=== PATIENT | male | born 1960 | race African-American/Black ===

== ENCOUNTER 2017-03-16 00:32 | Inpatient (IN) | payer MEDICAID, OTHER ==
[~2017-03-16] VITALS: Ht 170.2 cm; Wt 100.2 kg
[~2017-03-16 00:32] MED LIST: ASPI81 PO; CARV12 PO; FURO40 PO; LISI-661 PO; OXCA300T PO; SPIR25 PO; TRAZ-144 PO
[2017-03-16] MEDS ORDERED: LURA20TA PO (00:59)
[2017-03-16] MEDS ORDERED: ALBU6.7H IH (00:59)
[2017-03-16] MEDS ORDERED: GABA-533 PO (00:59)
[2017-03-16] MEDS ORDERED: TAMS0.4C32 PO (00:59)
[2017-03-16] MEDS ORDERED: BUDE10.2 IH (00:59)
[2017-03-16] MEDS ORDERED: PHENY100 PO (00:59)
[2017-03-16] MEDS ORDERED: PANT40TA25 PO (00:59)
[2017-03-16 01:36] LABS: BASOPHILS % (AUTO) 0.1 % (0.0-2.0); EOSINOPHILS % (AUTO) 1.6 % (1.0-6.0); HEMATOCRIT 31.8 % (41-53); HEMOGLOBIN 10.2 g/dL (13.5-17.5); LYMPHOCYTES # (AUTO) 1.5 K/uL (1.0-4.8); LYMPHOCYTES % (AUTO) 13.4 % (22.0-44.0); MEAN CORPUSCULAR HEMOGLOBIN 25.7 pg (26.0-34.0); MEAN CORPUSCULAR HGB CONC 32.1 G/dL (31.0-37.0); MEAN CORPUSCULAR VOLUME 80 fL (80-100); MONOCYTES # (AUTO) 0.5 K/uL (0.1-1.0); MONOCYTES % (AUTO) 4.8 % (2.0-9.0); NEUTROPHILS # (AUTO) 9.1 K/uL (1.8-7.7); NEUTROPHILS % (AUTO) 80.1 % (40.0-70.0); PLATELET COUNT (AUTO) 373 K/uL (150-450); RED BLOOD CELL COUNT(AUTO) 3.97 MIL/uL (4.50-5.90); WHITE BLOOD COUNT (AUTO) 11.4 K/uL (4.5-11.0)
[2017-03-16 01:45] LABS: ANION GAP 6 mmol/L (8-16); CALCIUM, TOTAL 8.7 mg/dL (8.8-10.5); CARBON DIOXIDE 31 mmol/L (22-29); CHLORIDE 97 mmol/L (98-107); CREATININE 0.95 mg/dL (0.60-1.30); GLOMERULAR FILTR. RATE CALC > 60 mL/min (>60); POTASSIUM 4.8 mmol/L (3.5-5.1); SODIUM SERUM 134 mmol/L (136-145); UREA NITROGEN, BLOOD 25 mg/dL (7-18)
[2017-03-16 01:51] LABS: ALANINE AMINOTRANSFERASE 100 U/L (12-78); ALBUMIN 3.5 g/dL (3.4-5.0); ASPARTATE AMINOTRANSFERASE 48 U/L (15-37); BILIRUBIN,TOTAL 0.3 mg/dL (0.1-1.0); TOTAL PROTEIN, SERUM 7.1 g/dL (6.4-8.2)
[2017-03-16 02:02] LABS: B-TYPE NATRIURETIC PEPTIDE 851 pg/mL (0-100)
[2017-03-16 04:09] LABS: APPEARANCE,URINE CLEAR (CLEAR); GLUCOSE, URINE (UA) NEGATIVE (NEGATIVE); KETONES,URINE NEGATIVE (NEGATIVE); LEUKOCYTE ESTERASE ,URINE NEGATIVE (NEGATIVE); OCCULT BLOOD,URINE NEGATIVE (NEGATIVE); PH,URINE 7.5 (5.0-8.0); PROTEIN,URINE NEGATIVE (NEGATIVE)
[2017-03-16 04:13] LABS: ADD UA MICROSCOPIC NO
[2017-03-16] MEDS ORDERED: QUEtiapine FUMARATE 100 MG TABLET PO PRN (04:15)
[2017-03-16 05:52] VITALS: BP 135/88
[2017-03-16] MEDS ORDERED: PNEUMOCOCCAL VACCINE POLYVALENT 0.5 ML VIAL [PPSV23] IM ONE (06:15)
[2017-03-16 08:00] VITALS: BP 105/67
[2017-03-16] MEDS: LORazepam 2 MG TABLET PO PRN ×2 (10:08→16:28)
[2017-03-16] MEDS ORDERED: TRAZ-147 PO (13:09)
[2017-03-16] MEDS: ASPIRIN 81 MG EC TABLET PO SCH (14:29)
[2017-03-16] MEDS: TAMSULOSIN HCL 0.4 MG CAPSULE PO SCH (14:30)
[2017-03-16 16:11] VITALS: BP 143/92
[2017-03-16] MEDS: PHENYTOIN SODIUM 100 MG ER CAPSULE PO SCH (16:26)
[2017-03-16] MEDS: CARVEDILOL 12.5 MG TABLET PO SCH (16:26)
[2017-03-16] MEDS: OXcarbazepine 300 MG TABLET PO SCH (17:00)
[2017-03-16] MEDS: ALBUTEROL SULFATE HFA 90 MCG/PUFF 8 GM INHALER IH SCH ×2 (18:08→23:58)
[2017-03-17] MEDS: ZOLPIDEM TARTRATE 10 MG TABLET PO PRN ×2 (00:01→20:18)
[2017-03-17 00:23] VITALS: BP 110/63
[2017-03-17] MEDS: LORazepam 2 MG TABLET PO PRN ×2 (05:19→10:00)
[2017-03-17] MEDS: ALBUTEROL SULFATE HFA 90 MCG/PUFF 8 GM INHALER IH SCH ×3 (05:53→17:34)
[2017-03-17 06:47] LABS: BASOPHILS % (AUTO) 0.2 % (0.0-2.0); EOSINOPHILS % (AUTO) 3.6 % (1.0-6.0); HEMOGLOBIN 10.1 g/dL (13.5-17.5); LYMPHOCYTES # (AUTO) 1.5 K/uL (1.0-4.8); LYMPHOCYTES % (AUTO) 18.7 % (22.0-44.0); MEAN CORPUSCULAR HEMOGLOBIN 25.7 pg (26.0-34.0); MEAN CORPUSCULAR HGB CONC 31.6 G/dL (31.0-37.0); MEAN CORPUSCULAR VOLUME 81 fL (80-100); MONOCYTES # (AUTO) 0.6 K/uL (0.1-1.0); MONOCYTES % (AUTO) 8.2 % (2.0-9.0); NEUTROPHILS # (AUTO) 5.4 K/uL (1.8-7.7); NEUTROPHILS % (AUTO) 69.3 % (40.0-70.0); PLATELET COUNT (AUTO) 349 K/uL (150-450); RED BLOOD CELL COUNT(AUTO) 3.93 MIL/uL (4.50-5.90); RED CELL DISTRIBUTION WIDTH 16.4 % (11.5-14.5); WHITE BLOOD COUNT (AUTO) 7.8 K/uL (4.5-11.0)
[2017-03-17 07:14] LABS: ALANINE AMINOTRANSFERASE 95 U/L (12-78); ALBUMIN 3.1 g/dL (3.4-5.0); ANION GAP 4 mmol/L (8-16); ASPARTATE AMINOTRANSFERASE 46 U/L (15-37); BILIRUBIN,TOTAL 0.4 mg/dL (0.1-1.0); CALCIUM, TOTAL 8.6 mg/dL (8.8-10.5); CARBON DIOXIDE 31 mmol/L (22-29); CHLORIDE 100 mmol/L (98-107); CREATININE 0.72 mg/dL (0.60-1.30); GLOMERULAR FILTR. RATE CALC > 60 mL/min (>60); POTASSIUM 4.6 mmol/L (3.5-5.1); SODIUM SERUM 135 mmol/L (136-145); UREA NITROGEN, BLOOD 16 mg/dL (7-18)
[2017-03-17 08:00] VITALS: BP 119/91
[2017-03-17] MEDS: PHENYTOIN SODIUM 100 MG ER CAPSULE PO SCH ×2 (08:57→17:34)
[2017-03-17] MEDS: CARVEDILOL 12.5 MG TABLET PO SCH ×2 (08:57→17:34)
[2017-03-17] MEDS: ASPIRIN 81 MG EC TABLET PO SCH (08:57)
[2017-03-17] MEDS: TAMSULOSIN HCL 0.4 MG CAPSULE PO SCH (08:57)
[2017-03-17] MEDS: OXcarbazepine 300 MG TABLET PO SCH ×2 (09:00→17:00)
[2017-03-17] MEDS ORDERED: HALOPERIDOL LACTATE 5 MG/ML VIAL IM ONE (15:30)
[2017-03-17] MEDS ORDERED: LORazepam 2 MG/ML VIAL IM ONE (15:30)
[2017-03-17 16:57] VITALS: BP 132/89
[2017-03-17] MEDS: HydrOXYzine PAMOATE 25 MG CAPSULE PO PRN (17:34)
[2017-03-17] MEDS: TraZODone HCL 100 MG TABLET PO SCH (20:18)
[2017-03-18] MEDS: ALBUTEROL SULFATE HFA 90 MCG/PUFF 8 GM INHALER IH SCH ×4 (00:06→17:30)
[2017-03-18] MEDS: HydrOXYzine PAMOATE 25 MG CAPSULE PO PRN ×3 (00:06→17:30)
[2017-03-18 03:30] VITALS: BP 142/76
[2017-03-18 08:05] VITALS: BP 111/84
[2017-03-18] MEDS: TAMSULOSIN HCL 0.4 MG CAPSULE PO SCH (08:25)
[2017-03-18] MEDS: CARVEDILOL 12.5 MG TABLET PO SCH ×2 (08:26→17:30)
[2017-03-18] MEDS: PHENYTOIN SODIUM 100 MG ER CAPSULE PO SCH ×2 (08:26→17:30)
[2017-03-18] MEDS: ASPIRIN 81 MG EC TABLET PO SCH (08:26)
[2017-03-18] MEDS: OXcarbazepine 300 MG TABLET PO SCH ×2 (08:34→17:00)
[2017-03-18] MEDS ORDERED: IBUPROFEN 600 MG TABLET PO PRN (09:30)
[2017-03-18] MEDS ORDERED: ACETAMINOPHEN 325 MG TABLET PO PRN (09:30)
[2017-03-18 18:36] VITALS: BP 124/88
[2017-03-18] MEDS: TraZODone HCL 100 MG TABLET PO SCH (20:15)
[2017-03-18] MEDS: ZOLPIDEM TARTRATE 10 MG TABLET PO PRN (20:15)
[2017-03-19] MEDS: ALBUTEROL SULFATE HFA 90 MCG/PUFF 8 GM INHALER IH SCH ×3 (00:01→12:00)
[2017-03-19 03:00] VITALS: BP 121/78
[2017-03-19] MEDS: HydrOXYzine PAMOATE 25 MG CAPSULE PO PRN (03:09)
[2017-03-19] MEDS: OXcarbazepine 300 MG TABLET PO SCH ×2 (09:00→09:02)
[2017-03-19] MEDS: PHENYTOIN SODIUM 100 MG ER CAPSULE PO SCH (09:02)
[2017-03-19] MEDS: TAMSULOSIN HCL 0.4 MG CAPSULE PO SCH (09:02)
[2017-03-19] MEDS: ASPIRIN 81 MG EC TABLET PO SCH (09:02)
[2017-03-19] MEDS: CARVEDILOL 12.5 MG TABLET PO SCH (09:03)
[2017-03-19 09:47] VITALS: BP 142/83
== END 2017-03-19 13:40 | disposition home or self-care (01) | DRG 750 ==
LOC: EMS 00:33 → 3EI 04:29
PROVIDERS: ADMIT Psychiatry & Neurology Child & Adolescent Psychiatry; ATTEND Psychiatry & Neurology Child & Adolescent Psychiatry
DX: F20.0 Paranoid schizophrenia (principal); I11.0 Hypertensive heart disease with heart failure; I50.9 Heart failure, unspecified; R45.851 Suicidal ideations; K74.60 Unspecified cirrhosis of liver; H40.9 Unspecified glaucoma; F32.9 Major depressive disorder, single episode, unspecified; F41.9 Anxiety disorder, unspecified; I48.91 Unspecified atrial fibrillation; J44.9 Chronic obstructive pulmonary disease, unspecified; K21.9 Gastro-esophageal reflux disease without esophagitis; N40.0 Benign prostatic hyperplasia without lower urinary tract symptoms; Z59.0 Homelessness; Z91.5 Personal history of self-harm; Z88.0 Allergy status to penicillin; Z88.8 Allergy status to other drugs, medicaments and biological substances; Z79.899 Other long term (current) drug therapy; Z28.21 Immunization not carried out because of patient refusal
CPT/HCPCS: 84439; 84443; 87081; 93005; 99285; G0480; J3535

== ENCOUNTER 2018-04-09 16:04 | Emergency (ER) | payer MEDICAID, OTHER ==
[~2018-04-09] VITALS: Ht 170.2 cm; Wt 100.0 kg
[~2018-04-09 16:04] MED LIST changes: +FURO-152 PO; -FURO40 PO; +HYD50 PO; +HYDR-3114 PO; -LISI-661 PO; +LISI10TA7 PO; +LITH300C3 PO; +LURA40 PO; +MULT-1239 PO; -OXCA300T PO; +PHENY100 PO; +PRAZ1 PO; +PRAZ1CAP5 PO; +SERT50TA12 PO; -SPIR25 PO; +SPIR50 PO; +TAMS0.4C32 PO; -TRAZ-144 PO
[2018-04-09] MEDS ORDERED: TRAZ-219 PO (16:19)
[2018-04-09] MEDS ORDERED: LORA2ORA5 PO ×2 (16:19→16:26)
[2018-04-09] MEDS ORDERED: GABA-531 PO (16:19)
[2018-04-09] MEDS ORDERED: GABA-533 PO (16:26)
[2018-04-09 17:31] VITALS: BP 121/72
== END 2018-04-09 17:34 | disposition home or self-care (01) ==
LOC: EMS 16:05
DX: F15.10 Other stimulant abuse, uncomplicated (principal); F32.9 Major depressive disorder, single episode, unspecified; F20.9 Schizophrenia, unspecified; F41.9 Anxiety disorder, unspecified; I11.0 Hypertensive heart disease with heart failure; I50.9 Heart failure, unspecified; I48.91 Unspecified atrial fibrillation; J44.9 Chronic obstructive pulmonary disease, unspecified; F12.90 Cannabis use, unspecified, uncomplicated; Z88.0 Allergy status to penicillin; Z88.8 Allergy status to other drugs, medicaments and biological substances; Z79.82 Long term (current) use of aspirin; Z79.899 Other long term (current) drug therapy

== ENCOUNTER 2018-04-11 16:20 | Inpatient (IN) | payer MEDICAID, OTHER ==
[~2018-04-11] VITALS: Ht 170.2 cm; Wt 90.6 kg
[~2018-04-11 16:20] MED LIST changes: +GABA-533 PO; -HYD50 PO; -HYDR-3114 PO; +LORA2ORA5 PO; -LURA40 PO; -PHENY100 PO; -SERT50TA12 PO; +TRAZ-219 PO
[2018-04-11 17:15] LABS: EOSINOPHILS % (AUTO) 0.2 % (1.0-6.0); HEMATOCRIT 37.9 % (41-53); HEMOGLOBIN 12.4 g/dL (13.5-17.5); LYMPHOCYTES # (AUTO) 0.2 K/uL (1.0-4.8); LYMPHOCYTES % (AUTO) 3.3 % (22.0-44.0); MEAN CORPUSCULAR HEMOGLOBIN 28.2 pg (26.0-34.0); MEAN CORPUSCULAR HGB CONC 32.6 G/dL (31.0-37.0); MEAN CORPUSCULAR VOLUME 86 fL (80-100); MONOCYTES # (AUTO) 0.1 K/uL (0.1-1.0); MONOCYTES % (AUTO) 1.3 % (2.0-9.0); NEUTROPHILS # (AUTO) 5.3 K/uL (1.8-7.7); PLATELET COUNT (AUTO) 260 K/uL (150-450); RED BLOOD CELL COUNT(AUTO) 4.39 MIL/uL (4.50-5.90); RED CELL DISTRIBUTION WIDTH 15.5 % (11.5-14.5)
[2018-04-11 17:16] LABS: NEUTROPHILS % (AUTO) 95.2 % (40.0-70.0)
[2018-04-11 17:22] LABS: ANION GAP 7 mmol/L (8-16); CALCIUM, TOTAL 8.6 mg/dL (8.8-10.5); CARBON DIOXIDE 28 mmol/L (22-29); CHLORIDE 100 mmol/L (98-107); CREATININE 0.85 mg/dL (0.60-1.30); GLOMERULAR FILTR. RATE CALC > 60 mL/min (>60); GLUCOSE,RANDOM 164 mg/dL (70-110); POTASSIUM 4.6 mmol/L (3.5-5.1); SODIUM SERUM 135 mmol/L (136-145); UREA NITROGEN, BLOOD 12 mg/dL (7-18)
[2018-04-11 17:29] LABS: ALANINE AMINOTRANSFERASE 59 U/L (12-78); ALBUMIN 3.2 g/dL (3.4-5.0); ALKALINE PHOSPHATASE 106 U/L (46-116); ASPARTATE AMINOTRANSFERASE 21 U/L (15-37); BILIRUBIN,TOTAL 0.2 mg/dL (0.1-1.0); TOTAL PROTEIN, SERUM 7.2 g/dL (6.4-8.2)
[2018-04-11 17:38] LABS: LITHIUM < 0.20 mmol/L (0.60-1.20)
[2018-04-11 19:45] LABS: AMPHET/METH SCREEN,URINE POSITIVE (NEGATIVE); BARBITURATE SCREEN, URINE NEGATIVE (NEGATIVE); BENZODIAZEPINES SCREEN,URINE NEGATIVE (NEGATIVE); CANNABINOID SCREEN,URINE NEGATIVE (NEGATIVE); COCAINE SCREEN,URINE NEGATIVE (NEGATIVE); METHADONE SCREEN, URINE NEGATIVE (NEGATIVE); OPIATE SCREEN,URINE NEGATIVE (NEGATIVE)
[2018-04-11 19:46] LABS: PHENCYCLIDINE SCREEN,URINE NEGATIVE (NEGATIVE)
[2018-04-11] MEDS ORDERED: QUEtiapine FUMARATE 100 MG TABLET PO PRN (20:45)
[2018-04-11] MEDS ORDERED: LORazepam 2 MG/ML VIAL IM ONE (21:00)
[2018-04-12 00:01] VITALS: BP 135/96
[2018-04-12] MEDS ORDERED: PNEUMOCOCCAL VACCINE POLYVALENT 0.5 ML VIAL [PPSV23] IM ONE (00:15)
[2018-04-12] MEDS ORDERED: PETROLATUM,WHITE 71 GM JELLY TP PRN (06:45)
[2018-04-12] MEDS ORDERED: ONDANSETRON HCL 4 MG TABLET PO PRN (06:45)
[2018-04-12] MEDS ORDERED: CloNIDine HCL 0.1 MG TABLET PO PRN (06:45)
[2018-04-12] MEDS ORDERED: GuaiFENesin/D-METHORPHAN [SUGAR-FREE] 200-20MG/10 ML SYRUP UDCUP PO PRN (06:45)
[2018-04-12] MEDS ORDERED: ACETAMINOPHEN 325 MG TABLET PO PRN (06:45)
[2018-04-12] MEDS ORDERED: MAGNESIUM HYDROXIDE SUSPENSION 30 ML UDCUP PO PRN (06:45)
[2018-04-12] MEDS ORDERED: NICOTINE 14 MG/24 HOUR PATCH TD PRN (06:45)
[2018-04-12] MEDS ORDERED: LOPERAMIDE HCL 2 MG CAPSULE PO PRN (06:45)
[2018-04-12] MEDS ORDERED: DOCUSATE SODIUM 100 MG CAPSULE PO PRN (06:45)
[2018-04-12] MEDS ORDERED: MAG HYDROX/AL HYDROX/SIMETH ES 30 ML SUSPENSION UDCUP PO PRN (06:45)
[2018-04-12] MEDS: IBUPROFEN 400 MG TABLET PO PRN (10:45)
[2018-04-12] MEDS: ALBUTEROL SULFATE HFA 90 MCG/PUFF 8 GM INHALER IH PRN (14:27)
[2018-04-12] MEDS: LORazepam 2 MG TABLET PO PRN (16:16)
[2018-04-12] MEDS: LITHIUM CARBONATE 300 MG CAPSULE PO SCH (16:49)
[2018-04-12 17:18] VITALS: BP 126/79
[2018-04-12] MEDS: PRAZOSIN HCL 1 MG CAPSULE PO SCH (20:26)
[2018-04-13 00:38] VITALS: BP 140/96
[2018-04-13] MEDS: IBUPROFEN 400 MG TABLET PO PRN (00:38)
[2018-04-13] MEDS: ALBUTEROL SULFATE HFA 90 MCG/PUFF 8 GM INHALER IH PRN (07:47)
[2018-04-13 08:22] VITALS: BP 122/79
[2018-04-13] MEDS: LORazepam 2 MG TABLET PO PRN ×2 (08:32→16:21)
[2018-04-13] MEDS: LITHIUM CARBONATE 300 MG CAPSULE PO SCH ×2 (08:33→16:19)
[2018-04-13] MEDS: FUROSEMIDE 20 MG TABLET PO SCH (08:33)
[2018-04-13] MEDS: SERTRALINE HCL 50 MG TABLET PO SCH (08:33)
[2018-04-13 08:40] LABS: HEMOGLOBIN A1C 5.9 % (4.5-6.2)
[2018-04-13 09:39] LABS: CHOL/HDL RATIO 3.1 (4.2-7.3); THYROID STIMULATING HORMONE 0.63 uIU/mL (0.36-3.74)
[2018-04-13 19:49] VITALS: BP 112/86
[2018-04-13] MEDS: PRAZOSIN HCL 1 MG CAPSULE PO SCH (21:48)
[2018-04-14] MEDS: LORazepam 2 MG TABLET PO PRN ×3 (01:43→17:47)
[2018-04-14] MEDS: ZOLPIDEM TARTRATE 10 MG TABLET PO PRN (01:48)
[2018-04-14] MEDS: FUROSEMIDE 20 MG TABLET PO SCH (08:11)
[2018-04-14] MEDS: SERTRALINE HCL 50 MG TABLET PO SCH (08:11)
[2018-04-14] MEDS: LITHIUM CARBONATE 300 MG CAPSULE PO SCH ×2 (08:11→17:47)
[2018-04-14 09:15] VITALS: BP 130/76
[2018-04-14 10:35] VITALS: BP 128/66
[2018-04-14 19:18] VITALS: BP 132/72
[2018-04-14] MEDS: PRAZOSIN HCL 1 MG CAPSULE PO SCH (21:22)
[2018-04-15] MEDS: LORazepam 2 MG TABLET PO PRN ×2 (06:04→18:02)
[2018-04-15] MEDS: LITHIUM CARBONATE 300 MG CAPSULE PO SCH ×2 (09:09→18:01)
[2018-04-15] MEDS: SERTRALINE HCL 50 MG TABLET PO SCH (09:09)
[2018-04-15] MEDS: FUROSEMIDE 20 MG TABLET PO SCH (09:09)
[2018-04-15] MEDS ORDERED: LITH600 PO (13:03)
[2018-04-15] MEDS ORDERED: CARV6 PO (13:03)
[2018-04-15] MEDS ORDERED: FURO40 PO (13:03)
[2018-04-15] MEDS ORDERED: LORA1TAB3 PO (13:04)
[2018-04-15 20:51] VITALS: BP 132/84
[2018-04-15] MEDS: PRAZOSIN HCL 1 MG CAPSULE PO SCH (21:00)
[2018-04-16 01:10] VITALS: BP 105/64
[2018-04-16] MEDS: ZOLPIDEM TARTRATE 10 MG TABLET PO PRN (01:11)
[2018-04-16] MEDS: LORazepam 2 MG TABLET PO PRN ×3 (01:11→16:28)
[2018-04-16] MEDS: TAMSULOSIN HCL 0.4 MG CAPSULE PO SCH (09:08)
[2018-04-16] MEDS: ASPIRIN 81 MG CHEWABLE TABLET PO SCH (09:09)
[2018-04-16] MEDS: SERTRALINE HCL 50 MG TABLET PO SCH (09:09)
[2018-04-16] MEDS: LITHIUM CARBONATE 300 MG CAPSULE PO SCH ×2 (09:09→16:28)
[2018-04-16] MEDS: SPIRONOLACTONE 50 MG TABLET PO SCH (09:10)
[2018-04-16] MEDS: LISINOPRIL 10 MG TABLET PO SCH (09:10)
[2018-04-16] MEDS: FUROSEMIDE 40 MG TABLET PO SCH (09:10)
[2018-04-16] MEDS: CARVEDILOL 6.25 MG TABLET PO SCH (09:10)
[2018-04-16] MEDS: IBUPROFEN 400 MG TABLET PO PRN (09:17)
[2018-04-16] MEDS: ALBUTEROL SULFATE HFA 90 MCG/PUFF 8 GM INHALER IH PRN (09:18)
[2018-04-16 09:29] VITALS: BP 130/75
[2018-04-16 19:22] VITALS: BP 128/66
[2018-04-16] MEDS: PRAZOSIN HCL 1 MG CAPSULE PO SCH (21:30)
[2018-04-17] MEDS: LORazepam 2 MG TABLET PO PRN (05:47)
[2018-04-17 05:49] VITALS: BP 124/86
[2018-04-17] MEDS: LISINOPRIL 10 MG TABLET PO SCH (08:37)
[2018-04-17] MEDS: CARVEDILOL 6.25 MG TABLET PO SCH (08:37)
[2018-04-17] MEDS: ASPIRIN 81 MG CHEWABLE TABLET PO SCH (08:37)
[2018-04-17] MEDS: SERTRALINE HCL 50 MG TABLET PO SCH (08:37)
[2018-04-17] MEDS: LITHIUM CARBONATE 300 MG CAPSULE PO SCH ×2 (08:37→16:59)
[2018-04-17] MEDS: SPIRONOLACTONE 50 MG TABLET PO SCH (08:38)
[2018-04-17] MEDS: TAMSULOSIN HCL 0.4 MG CAPSULE PO SCH (08:38)
[2018-04-17] MEDS: FUROSEMIDE 40 MG TABLET PO SCH (08:38)
[2018-04-17 08:45] VITALS: BP 106/91
[2018-04-17] MEDS: PRAZOSIN HCL 1 MG CAPSULE PO SCH (20:34)
[2018-04-17 21:10] VITALS: BP 115/61
[2018-04-18] MEDS: ZOLPIDEM TARTRATE 10 MG TABLET PO PRN (00:04)
[2018-04-18] MEDS: LORazepam 2 MG TABLET PO PRN ×2 (00:04→09:10)
[2018-04-18 00:06] VITALS: BP 106/68
[2018-04-18 06:32] LABS: ANION GAP 3 mmol/L (8-16); CALCIUM, TOTAL 9.2 mg/dL (8.8-10.5); CARBON DIOXIDE 29 mmol/L (22-29); CHLORIDE 103 mmol/L (98-107); CREATININE 0.85 mg/dL (0.60-1.30); GLOMERULAR FILTR. RATE CALC > 60 mL/min (>60); GLUCOSE,RANDOM 91 mg/dL (70-110); POTASSIUM 4.5 mmol/L (3.5-5.1); SODIUM SERUM 135 mmol/L (136-145); UREA NITROGEN, BLOOD 13 mg/dL (7-18)
[2018-04-18] MEDS: SPIRONOLACTONE 50 MG TABLET PO SCH (08:59)
[2018-04-18] MEDS: SERTRALINE HCL 50 MG TABLET PO SCH (08:59)
[2018-04-18] MEDS: ASPIRIN 81 MG CHEWABLE TABLET PO SCH (08:59)
[2018-04-18] MEDS: LISINOPRIL 10 MG TABLET PO SCH (08:59)
[2018-04-18] MEDS: FUROSEMIDE 40 MG TABLET PO SCH (08:59)
[2018-04-18] MEDS: LITHIUM CARBONATE 300 MG CAPSULE PO SCH (08:59)
[2018-04-18] MEDS: TAMSULOSIN HCL 0.4 MG CAPSULE PO SCH (08:59)
[2018-04-18] MEDS: CARVEDILOL 6.25 MG TABLET PO SCH (09:00)
[2018-04-18 09:08] VITALS: BP 116/84
[2018-04-18] MEDS: ALBUTEROL SULFATE HFA 90 MCG/PUFF 8 GM INHALER IH PRN (09:08)
[2018-04-18] MEDS: IBUPROFEN 400 MG TABLET PO PRN (09:11)
[2018-04-18 09:38] VITALS: BP 117/80
[2018-04-18 10:08] VITALS: BP 116/84
[2018-04-18 10:11] VITALS: BP 118/82
[2018-04-18] MEDS ORDERED: SERT50TA12 PO (10:16)
== END 2018-04-18 14:00 | disposition home or self-care (01) | DRG 750 ==
LOC: EDUNIT# 16:20 → EMS 16:21 → 3EI 21:54
DX: F25.0 Schizoaffective disorder, bipolar type (principal); E87.1 Hypo-osmolality and hyponatremia; F15.20 Other stimulant dependence, uncomplicated; I48.2 Chronic atrial fibrillation; I11.0 Hypertensive heart disease with heart failure; I50.9 Heart failure, unspecified; R45.851 Suicidal ideations; G40.909 Epilepsy, unspecified, not intractable, without status epilepticus; F17.200 Nicotine dependence, unspecified, uncomplicated; F41.9 Anxiety disorder, unspecified; F12.90 Cannabis use, unspecified, uncomplicated; M54.9 Dorsalgia, unspecified; G89.29 Other chronic pain; H40.9 Unspecified glaucoma; E03.9 Hypothyroidism, unspecified; D64.9 Anemia, unspecified; J44.9 Chronic obstructive pulmonary disease, unspecified; N40.0 Benign prostatic hyperplasia without lower urinary tract symptoms; Z59.0 Homelessness; Z79.899 Other long term (current) drug therapy; Z91.5 Personal history of self-harm; Z88.0 Allergy status to penicillin; Z88.8 Allergy status to other drugs, medicaments and biological substances; Z79.82 Long term (current) use of aspirin; Z28.21 Immunization not carried out because of patient refusal; Z71.51 Drug abuse counseling and surveillance of drug abuser
CPT/HCPCS: 83036; 84443; 87081; 96372; 99406; G0480; J2060; J3535

== ENCOUNTER 2018-05-12 09:45 | Inpatient (IN) | payer MEDICAID, OTHER ==
[~2018-05-12] VITALS: Ht 170.2 cm; Wt 94.6 kg
[~2018-05-12 09:45] MED LIST changes: -CARV12 PO; +CARV6 PO; -FURO-152 PO; +FURO40 PO; -GABA-533 PO; -LITH300C3 PO; +LITH600 PO; -LORA2ORA5 PO; -MULT-1239 PO; -PRAZ1 PO; +SERT50TA12 PO; -TRAZ-219 PO
[2018-05-12 10:53] LABS: BASOPHILS % (AUTO) 0.9 % (0.0-2.0); EOSINOPHILS % (AUTO) 2.1 % (1.0-6.0); HEMATOCRIT 37.4 % (41-53); HEMOGLOBIN 12.3 g/dL (13.5-17.5); LYMPHOCYTES % (AUTO) 22.1 % (22.0-44.0); MEAN CORPUSCULAR HGB CONC 33.1 G/dL (31.0-37.0); MEAN CORPUSCULAR VOLUME 85 fL (80-100); MONOCYTES % (AUTO) 10.5 % (2.0-9.0); NEUTROPHILS # (AUTO) 5.9 K/uL (1.8-7.7); NEUTROPHILS % (AUTO) 64.4 % (40.0-70.0); PLATELET COUNT (AUTO) 297 K/uL (150-450); RED BLOOD CELL COUNT(AUTO) 4.42 MIL/uL (4.50-5.90); RED CELL DISTRIBUTION WIDTH 14.7 % (11.5-14.5)
[2018-05-12] MEDS ORDERED: IBUPROFEN 400 MG TABLET PO PRN ×2 (11:00→18:15)
[2018-05-12] MEDS ORDERED: IPRATROPIUM BROMIDE 0.5 MG/2.5 ML NEB SOLUTION NEB ONE (11:00)
[2018-05-12] MEDS ORDERED: ALBUTEROL SULFATE 2.5 MG/0.5 ML NEB SOLUTION NEB ONE (11:00)
[2018-05-12] MEDS ORDERED: ACETAMINOPHEN 325 MG TABLET PO PRN ×2 (11:00→18:15)
[2018-05-12 11:05] LABS: ANION GAP 4 mmol/L (8-16); CALCIUM, TOTAL 8.1 mg/dL (8.8-10.5); CARBON DIOXIDE 32 mmol/L (22-29); CHLORIDE 101 mmol/L (98-107); CREATININE 0.75 mg/dL (0.60-1.30); GLOMERULAR FILTR. RATE CALC > 60 mL/min (>60); GLUCOSE,RANDOM 76 mg/dL (70-110); POTASSIUM 3.9 mmol/L (3.5-5.1); SODIUM SERUM 137 mmol/L (136-145); UREA NITROGEN, BLOOD 13 mg/dL (7-18)
[2018-05-12 11:07] LABS: AMPHET/METH SCREEN,URINE POSITIVE (NEGATIVE); BARBITURATE SCREEN, URINE NEGATIVE (NEGATIVE); BENZODIAZEPINES SCREEN,URINE NEGATIVE (NEGATIVE); CANNABINOID SCREEN,URINE POSITIVE (NEGATIVE); COCAINE SCREEN,URINE POSITIVE (NEGATIVE); METHADONE SCREEN, URINE NEGATIVE (NEGATIVE); OPIATE SCREEN,URINE NEGATIVE (NEGATIVE)
[2018-05-12 11:08] LABS: PHENCYCLIDINE SCREEN,URINE NEGATIVE (NEGATIVE)
[2018-05-12 11:11] LABS: ALANINE AMINOTRANSFERASE 42 U/L (12-78); ALBUMIN 3.3 g/dL (3.4-5.0); ALKALINE PHOSPHATASE 85 U/L (46-116); ASPARTATE AMINOTRANSFERASE 42 U/L (15-37); BILIRUBIN,TOTAL 0.6 mg/dL (0.1-1.0); TOTAL PROTEIN, SERUM 6.8 g/dL (6.4-8.2)
[2018-05-12] MEDS: LORazepam 2 MG TABLET PO PRN ×2 (11:13→23:59)
[2018-05-12] MEDS ORDERED: LORazepam 2 MG TABLET PO ONE (13:30)
[2018-05-12 16:25] LABS: AMPHET/METH SCREEN,URINE POSITIVE (NEGATIVE); BARBITURATE SCREEN, URINE NEGATIVE (NEGATIVE); BENZODIAZEPINES SCREEN,URINE NEGATIVE (NEGATIVE); CANNABINOID SCREEN,URINE POSITIVE (NEGATIVE); COCAINE SCREEN,URINE NEGATIVE (NEGATIVE); METHADONE SCREEN, URINE NEGATIVE (NEGATIVE); OPIATE SCREEN,URINE NEGATIVE (NEGATIVE)
[2018-05-12 16:38] LABS: PHENCYCLIDINE SCREEN,URINE NEGATIVE (NEGATIVE)
[2018-05-12 17:35] VITALS: BP 126/71
[2018-05-12] MEDS ORDERED: MAGNESIUM HYDROXIDE SUSPENSION 30 ML UDCUP PO PRN (18:15)
[2018-05-12] MEDS ORDERED: CloNIDine HCL 0.1 MG TABLET PO PRN (18:15)
[2018-05-12] MEDS ORDERED: ONDANSETRON HCL 4 MG TABLET PO PRN (18:15)
[2018-05-12] MEDS ORDERED: DOCUSATE SODIUM 100 MG CAPSULE PO PRN (18:15)
[2018-05-12] MEDS ORDERED: PETROLATUM,WHITE 71 GM JELLY TP PRN (18:15)
[2018-05-12] MEDS: PRAZOSIN HCL 1 MG CAPSULE PO SCH (22:23)
[2018-05-12] MEDS: ALBUTEROL SULFATE HFA 90 MCG/PUFF 8 GM INHALER IH PRN (23:54)
[2018-05-12] MEDS: ZOLPIDEM TARTRATE 10 MG TABLET PO PRN (23:58)
[2018-05-13 07:08] LABS: LITHIUM < 0.20 mmol/L (0.60-1.20)
[2018-05-13 07:10] LABS: CHOL/HDL RATIO 2.7 (4.2-7.3); CHOLESTEROL 115 mg/dL (131-200); HDL CHOLESTEROL 42 mg/dL (40-60); LDL CHOL (CALC.) 67 mg/dL (0-130); TRIGLYCERIDES 29 mg/dL (15-150)
[2018-05-13 07:28] LABS: APPEARANCE,URINE CLEAR (CLEAR); BILIRUBIN,URINE NEGATIVE (NEGATIVE); GLUCOSE, URINE (UA) NEGATIVE (NEGATIVE); KETONES,URINE NEGATIVE (NEGATIVE); LEUKOCYTE ESTERASE ,URINE NEGATIVE (NEGATIVE); NITRATE,URINE NEGATIVE (NEGATIVE); OCCULT BLOOD,URINE NEGATIVE (NEGATIVE); PROTEIN,URINE NEGATIVE (NEGATIVE)
[2018-05-13] MEDS: TAMSULOSIN HCL 0.4 MG CAPSULE PO SCH (08:11)
[2018-05-13] MEDS: CARVEDILOL 6.25 MG TABLET PO SCH (08:11)
[2018-05-13] MEDS: FUROSEMIDE 40 MG TABLET PO SCH (08:11)
[2018-05-13] MEDS: SPIRONOLACTONE 50 MG TABLET PO SCH (08:11)
[2018-05-13] MEDS: ASPIRIN 81 MG CHEWABLE TABLET PO SCH (08:11)
[2018-05-13] MEDS: SERTRALINE HCL 50 MG TABLET PO SCH (08:12)
[2018-05-13] MEDS: LISINOPRIL 10 MG TABLET PO SCH (08:13)
[2018-05-13] MEDS: ALBUTEROL SULFATE HFA 90 MCG/PUFF 8 GM INHALER IH PRN (08:16)
[2018-05-13 08:19] VITALS: BP 148/96
[2018-05-13] MEDS: LORazepam 2 MG TABLET PO PRN ×2 (09:58→21:00)
[2018-05-13] MEDS: MONTELUKAST SODIUM 10 MG TABLET PO SCH (11:33)
[2018-05-13] MEDS: TraMADol HCL 50 MG TABLET PO PRN (14:49)
[2018-05-13] MEDS: GABAPENTIN 400 MG CAPSULE PO SCH ×2 (16:20→23:50)
[2018-05-13 16:30] VITALS: BP 134/70
[2018-05-13] MEDS: LITHIUM CARBONATE 600 MG CAPSULE PO SCH (17:32)
[2018-05-13] MEDS: ZOLPIDEM TARTRATE 10 MG TABLET PO PRN (21:00)
[2018-05-13] MEDS: PRAZOSIN HCL 1 MG CAPSULE PO SCH (21:23)
[2018-05-14] MEDS: LORazepam 2 MG TABLET PO PRN ×2 (02:16→08:08)
[2018-05-14] MEDS: GuaiFENesin/D-METHORPHAN [SUGAR-FREE] 200-20MG/10 ML SYRUP UDCUP PO PRN (06:16)
[2018-05-14] MEDS: LITHIUM CARBONATE 600 MG CAPSULE PO SCH ×2 (06:50→17:34)
[2018-05-14] MEDS: FUROSEMIDE 40 MG TABLET PO SCH (08:01)
[2018-05-14] MEDS: TAMSULOSIN HCL 0.4 MG CAPSULE PO SCH (08:01)
[2018-05-14] MEDS: CARVEDILOL 6.25 MG TABLET PO SCH (08:01)
[2018-05-14] MEDS: MONTELUKAST SODIUM 10 MG TABLET PO SCH (08:01)
[2018-05-14] MEDS: SPIRONOLACTONE 50 MG TABLET PO SCH (08:02)
[2018-05-14] MEDS: ASPIRIN 81 MG CHEWABLE TABLET PO SCH (08:02)
[2018-05-14] MEDS: GABAPENTIN 400 MG CAPSULE PO SCH ×2 (08:03→16:36)
[2018-05-14] MEDS: SERTRALINE HCL 50 MG TABLET PO SCH (08:04)
[2018-05-14] MEDS: LISINOPRIL 10 MG TABLET PO SCH (08:04)
[2018-05-14] MEDS: ALBUTEROL SULFATE HFA 90 MCG/PUFF 8 GM INHALER IH PRN (08:05)
[2018-05-14 08:08] VITALS: BP 124/86
[2018-05-14] MEDS: TraMADol HCL 50 MG TABLET PO PRN (12:23)
[2018-05-14 17:11] VITALS: BP 124/70
[2018-05-14] MEDS: PRAZOSIN HCL 1 MG CAPSULE PO SCH (21:02)
[2018-05-14] MEDS: ZOLPIDEM TARTRATE 10 MG TABLET PO PRN (21:03)
[2018-05-14] MEDS: MAG HYDROX/AL HYDROX/SIMETH ES 30 ML SUSPENSION UDCUP PO PRN (21:25)
[2018-05-15] MEDS: GABAPENTIN 400 MG CAPSULE PO SCH ×3 (00:08→16:12)
[2018-05-15] MEDS: GuaiFENesin/D-METHORPHAN [SUGAR-FREE] 200-20MG/10 ML SYRUP UDCUP PO PRN (05:11)
[2018-05-15] MEDS: LITHIUM CARBONATE 600 MG CAPSULE PO SCH ×2 (07:17→16:12)
[2018-05-15 08:08] VITALS: BP 124/91
[2018-05-15] MEDS: SERTRALINE HCL 50 MG TABLET PO SCH (08:13)
[2018-05-15] MEDS: ASPIRIN 81 MG CHEWABLE TABLET PO SCH (08:13)
[2018-05-15] MEDS: TAMSULOSIN HCL 0.4 MG CAPSULE PO SCH (08:13)
[2018-05-15] MEDS: CARVEDILOL 6.25 MG TABLET PO SCH (08:13)
[2018-05-15] MEDS: MONTELUKAST SODIUM 10 MG TABLET PO SCH (08:13)
[2018-05-15] MEDS: FUROSEMIDE 40 MG TABLET PO SCH (08:13)
[2018-05-15] MEDS: SPIRONOLACTONE 50 MG TABLET PO SCH (08:14)
[2018-05-15] MEDS: LISINOPRIL 10 MG TABLET PO SCH (08:16)
[2018-05-15] MEDS: LORazepam 2 MG TABLET PO PRN (08:19)
[2018-05-15] MEDS: ALBUTEROL SULFATE HFA 90 MCG/PUFF 8 GM INHALER IH PRN (08:21)
[2018-05-15] MEDS ORDERED: SERTRALINE HCL 50 MG TABLET PO ONE (09:15)
[2018-05-15] MEDS: LOPERAMIDE HCL 2 MG CAPSULE PO PRN ×2 (15:05→17:09)
[2018-05-15] MEDS: FERROUS SULFATE 325 MG EC TABLET PO SCH (16:12)
[2018-05-15] MEDS: PRAZOSIN HCL 1 MG CAPSULE PO SCH (20:11)
[2018-05-15] MEDS: TraZODone HCL 100 MG TABLET PO SCH (20:11)
[2018-05-15 23:00] VITALS: BP 101/62
[2018-05-16] MEDS: GABAPENTIN 400 MG CAPSULE PO SCH ×4 (00:25→20:59)
[2018-05-16] MEDS: ALBUTEROL SULFATE HFA 90 MCG/PUFF 8 GM INHALER IH PRN ×2 (01:48→07:53)
[2018-05-16] MEDS: GuaiFENesin/D-METHORPHAN [SUGAR-FREE] 200-20MG/10 ML SYRUP UDCUP PO PRN ×2 (01:48→07:54)
[2018-05-16] MEDS: TraMADol HCL 50 MG TABLET PO PRN (01:49)
[2018-05-16 01:56] VITALS: BP 115/68
[2018-05-16] MEDS: FERROUS SULFATE 325 MG EC TABLET PO SCH ×3 (07:05→16:41)
[2018-05-16] MEDS: LITHIUM CARBONATE 600 MG CAPSULE PO SCH ×2 (07:05→16:41)
[2018-05-16] MEDS: LORazepam 2 MG TABLET PO PRN (07:51)
[2018-05-16 08:10] VITALS: BP 123/72
[2018-05-16] MEDS: CARVEDILOL 6.25 MG TABLET PO SCH (08:14)
[2018-05-16] MEDS: TAMSULOSIN HCL 0.4 MG CAPSULE PO SCH (08:14)
[2018-05-16] MEDS: SPIRONOLACTONE 50 MG TABLET PO SCH (08:14)
[2018-05-16] MEDS: MONTELUKAST SODIUM 10 MG TABLET PO SCH (08:14)
[2018-05-16] MEDS: SERTRALINE HCL 100 MG TABLET PO SCH (08:14)
[2018-05-16] MEDS: FUROSEMIDE 40 MG TABLET PO SCH (08:14)
[2018-05-16] MEDS: ASPIRIN 81 MG CHEWABLE TABLET PO SCH (08:15)
[2018-05-16] MEDS: QUEtiapine FUMARATE 100 MG TABLET PO PRN (08:15)
[2018-05-16] MEDS: LISINOPRIL 10 MG TABLET PO SCH (08:15)
[2018-05-16] MEDS: BusPIRone HCL 5 MG TABLET PO SCH ×2 (13:18→16:41)
[2018-05-16 16:20] VITALS: BP 121/58
[2018-05-16 20:56] VITALS: BP 117/63
[2018-05-16] MEDS: TraZODone HCL 100 MG TABLET PO SCH (20:58)
[2018-05-16] MEDS: PRAZOSIN HCL 1 MG CAPSULE PO SCH (20:58)
[2018-05-17] MEDS: ALBUTEROL SULFATE HFA 90 MCG/PUFF 8 GM INHALER IH PRN (02:04)
[2018-05-17] MEDS: GuaiFENesin/D-METHORPHAN [SUGAR-FREE] 200-20MG/10 ML SYRUP UDCUP PO PRN ×3 (02:05→16:19)
[2018-05-17] MEDS: TraMADol HCL 50 MG TABLET PO PRN ×3 (02:10→19:30)
[2018-05-17 02:12] VITALS: BP 141/92
[2018-05-17] MEDS: FERROUS SULFATE 325 MG EC TABLET PO SCH ×3 (07:02→18:10)
[2018-05-17] MEDS: LITHIUM CARBONATE 600 MG CAPSULE PO SCH ×2 (07:02→18:10)
[2018-05-17] MEDS: TAMSULOSIN HCL 0.4 MG CAPSULE PO SCH (07:45)
[2018-05-17] MEDS: GABAPENTIN 400 MG CAPSULE PO SCH ×3 (07:45→23:58)
[2018-05-17] MEDS: LISINOPRIL 10 MG TABLET PO SCH (07:45)
[2018-05-17] MEDS: SERTRALINE HCL 100 MG TABLET PO SCH (07:46)
[2018-05-17] MEDS: SPIRONOLACTONE 50 MG TABLET PO SCH (07:46)
[2018-05-17] MEDS: ASPIRIN 81 MG CHEWABLE TABLET PO SCH (07:46)
[2018-05-17] MEDS: CARVEDILOL 6.25 MG TABLET PO SCH (07:46)
[2018-05-17] MEDS: FUROSEMIDE 40 MG TABLET PO SCH (07:46)
[2018-05-17] MEDS: MONTELUKAST SODIUM 10 MG TABLET PO SCH (07:46)
[2018-05-17] MEDS: BusPIRone HCL 5 MG TABLET PO SCH ×3 (07:47→16:20)
[2018-05-17] MEDS: LORazepam 2 MG TABLET PO PRN ×3 (07:49→23:13)
[2018-05-17 08:00] VITALS: BP 150/84
[2018-05-17 16:42] VITALS: BP 114/79
[2018-05-17 19:30] VITALS: BP 134/81
[2018-05-17] MEDS: LOPERAMIDE HCL 2 MG CAPSULE PO PRN (19:30)
[2018-05-17] MEDS: PRAZOSIN HCL 1 MG CAPSULE PO SCH (20:32)
[2018-05-17] MEDS: TraZODone HCL 100 MG TABLET PO SCH (20:32)
[2018-05-18] MEDS: FERROUS SULFATE 325 MG EC TABLET PO SCH ×3 (06:51→16:47)
[2018-05-18] MEDS: LITHIUM CARBONATE 600 MG CAPSULE PO SCH ×2 (06:51→16:47)
[2018-05-18 08:15] VITALS: BP 115/67
[2018-05-18] MEDS: SPIRONOLACTONE 50 MG TABLET PO SCH (08:24)
[2018-05-18] MEDS: GABAPENTIN 400 MG CAPSULE PO SCH ×2 (08:24→16:46)
[2018-05-18] MEDS: ASPIRIN 81 MG CHEWABLE TABLET PO SCH (08:25)
[2018-05-18] MEDS: CARVEDILOL 6.25 MG TABLET PO SCH (08:25)
[2018-05-18] MEDS: TAMSULOSIN HCL 0.4 MG CAPSULE PO SCH (08:25)
[2018-05-18] MEDS: BusPIRone HCL 5 MG TABLET PO SCH ×3 (08:25→16:47)
[2018-05-18] MEDS: FUROSEMIDE 40 MG TABLET PO SCH (08:26)
[2018-05-18] MEDS: MONTELUKAST SODIUM 10 MG TABLET PO SCH (08:26)
[2018-05-18] MEDS: LISINOPRIL 10 MG TABLET PO SCH (08:26)
[2018-05-18] MEDS: SERTRALINE HCL 100 MG TABLET PO SCH (08:26)
[2018-05-18] MEDS: TraMADol HCL 50 MG TABLET PO PRN ×2 (08:30→20:50)
[2018-05-18] MEDS: GuaiFENesin/D-METHORPHAN [SUGAR-FREE] 200-20MG/10 ML SYRUP UDCUP PO PRN ×2 (08:30→16:50)
[2018-05-18] MEDS: ALBUTEROL SULFATE HFA 90 MCG/PUFF 8 GM INHALER IH PRN (13:08)
[2018-05-18 17:36] VITALS: BP 137/87
[2018-05-18 20:49] VITALS: BP 140/80
[2018-05-18] MEDS: PRAZOSIN HCL 1 MG CAPSULE PO SCH (20:50)
[2018-05-18] MEDS: TraZODone HCL 100 MG TABLET PO SCH (20:50)
[2018-05-18] MEDS: LORazepam 2 MG TABLET PO PRN (22:45)
[2018-05-18] MEDS: ZOLPIDEM TARTRATE 10 MG TABLET PO PRN (22:46)
[2018-05-19] MEDS: GABAPENTIN 400 MG CAPSULE PO SCH ×4 (00:15→23:48)
[2018-05-19 06:06] VITALS: BP 113/78
[2018-05-19] MEDS: LITHIUM CARBONATE 600 MG CAPSULE PO SCH ×2 (07:38→17:17)
[2018-05-19] MEDS: TAMSULOSIN HCL 0.4 MG CAPSULE PO SCH (07:38)
[2018-05-19] MEDS: LISINOPRIL 10 MG TABLET PO SCH (07:38)
[2018-05-19] MEDS: FERROUS SULFATE 325 MG EC TABLET PO SCH ×3 (07:38→17:17)
[2018-05-19] MEDS: MONTELUKAST SODIUM 10 MG TABLET PO SCH (07:39)
[2018-05-19] MEDS: BusPIRone HCL 5 MG TABLET PO SCH ×3 (07:39→17:16)
[2018-05-19] MEDS: FUROSEMIDE 40 MG TABLET PO SCH (07:39)
[2018-05-19] MEDS: SERTRALINE HCL 100 MG TABLET PO SCH (07:39)
[2018-05-19] MEDS: CARVEDILOL 6.25 MG TABLET PO SCH (07:39)
[2018-05-19] MEDS: SPIRONOLACTONE 50 MG TABLET PO SCH (07:39)
[2018-05-19] MEDS: ASPIRIN 81 MG CHEWABLE TABLET PO SCH (07:40)
[2018-05-19] MEDS: LORazepam 2 MG TABLET PO PRN ×2 (07:41→16:07)
[2018-05-19 10:04] VITALS: BP 115/82
[2018-05-19] MEDS: GuaiFENesin/D-METHORPHAN [SUGAR-FREE] 200-20MG/10 ML SYRUP UDCUP PO PRN (16:07)
[2018-05-19 16:19] VITALS: BP 113/67
[2018-05-19] MEDS: QUEtiapine FUMARATE 100 MG TABLET PO PRN (19:51)
[2018-05-19] MEDS: TraZODone HCL 100 MG TABLET PO SCH (20:30)
[2018-05-19] MEDS: PRAZOSIN HCL 1 MG CAPSULE PO SCH (20:30)
[2018-05-19] MEDS: ZOLPIDEM TARTRATE 10 MG TABLET PO PRN (21:33)
[2018-05-20] MEDS: LORazepam 2 MG TABLET PO PRN ×2 (02:48→17:30)
[2018-05-20] MEDS: QUEtiapine FUMARATE 100 MG TABLET PO PRN ×2 (02:48→16:24)
[2018-05-20] MEDS: LITHIUM CARBONATE 600 MG CAPSULE PO SCH ×2 (06:41→16:23)
[2018-05-20] MEDS: FERROUS SULFATE 325 MG EC TABLET PO SCH ×3 (06:41→16:25)
[2018-05-20] MEDS: MONTELUKAST SODIUM 10 MG TABLET PO SCH (08:11)
[2018-05-20] MEDS: CARVEDILOL 6.25 MG TABLET PO SCH (08:11)
[2018-05-20] MEDS: LISINOPRIL 10 MG TABLET PO SCH (08:11)
[2018-05-20] MEDS: GABAPENTIN 400 MG CAPSULE PO SCH ×3 (08:11→23:58)
[2018-05-20] MEDS: FUROSEMIDE 40 MG TABLET PO SCH (08:11)
[2018-05-20] MEDS: TAMSULOSIN HCL 0.4 MG CAPSULE PO SCH (08:11)
[2018-05-20] MEDS: BusPIRone HCL 5 MG TABLET PO SCH ×3 (08:11→16:24)
[2018-05-20] MEDS: ASPIRIN 81 MG CHEWABLE TABLET PO SCH (08:12)
[2018-05-20] MEDS: SPIRONOLACTONE 50 MG TABLET PO SCH (08:12)
[2018-05-20] MEDS: SERTRALINE HCL 100 MG TABLET PO SCH (08:12)
[2018-05-20] MEDS: TraMADol HCL 50 MG TABLET PO PRN (08:19)
[2018-05-20] MEDS: GuaiFENesin/D-METHORPHAN [SUGAR-FREE] 200-20MG/10 ML SYRUP UDCUP PO PRN (08:21)
[2018-05-20 08:57] VITALS: BP 116/79
[2018-05-20] MEDS: MAG HYDROX/AL HYDROX/SIMETH ES 30 ML SUSPENSION UDCUP PO PRN (15:03)
[2018-05-20 17:24] VITALS: BP 124/67
[2018-05-20] MEDS: PRAZOSIN HCL 1 MG CAPSULE PO SCH (21:35)
[2018-05-20] MEDS: TraZODone HCL 100 MG TABLET PO SCH (21:35)
[2018-05-21 00:39] VITALS: BP 108/80
[2018-05-21] MEDS: ZOLPIDEM TARTRATE 10 MG TABLET PO PRN (03:01)
[2018-05-21] MEDS: GuaiFENesin/D-METHORPHAN [SUGAR-FREE] 200-20MG/10 ML SYRUP UDCUP PO PRN (03:03)
[2018-05-21] MEDS: FERROUS SULFATE 325 MG EC TABLET PO SCH ×2 (07:05→12:29)
[2018-05-21] MEDS: LITHIUM CARBONATE 600 MG CAPSULE PO SCH (07:06)
[2018-05-21 08:38] VITALS: BP 122/79
[2018-05-21] MEDS: ASPIRIN 81 MG CHEWABLE TABLET PO SCH (08:50)
[2018-05-21] MEDS: LISINOPRIL 10 MG TABLET PO SCH (08:50)
[2018-05-21] MEDS: QUEtiapine FUMARATE 100 MG TABLET PO PRN (08:50)
[2018-05-21] MEDS: LORazepam 2 MG TABLET PO PRN (08:50)
[2018-05-21] MEDS: GABAPENTIN 400 MG CAPSULE PO SCH (08:50)
[2018-05-21] MEDS: TAMSULOSIN HCL 0.4 MG CAPSULE PO SCH (08:50)
[2018-05-21] MEDS: SERTRALINE HCL 100 MG TABLET PO SCH (08:51)
[2018-05-21] MEDS: SPIRONOLACTONE 50 MG TABLET PO SCH (08:51)
[2018-05-21] MEDS: MONTELUKAST SODIUM 10 MG TABLET PO SCH (08:51)
[2018-05-21] MEDS: CARVEDILOL 6.25 MG TABLET PO SCH (08:51)
[2018-05-21] MEDS: FUROSEMIDE 40 MG TABLET PO SCH (08:51)
[2018-05-21] MEDS: BusPIRone HCL 5 MG TABLET PO SCH ×2 (08:51→13:26)
[2018-05-21] MEDS ORDERED: BUSP5TAB20 PO (11:12)
[2018-05-21] MEDS ORDERED: TRAZ-220 PO (11:13)
[2018-05-21] MEDS ORDERED: SERT100T12 PO (11:13)
[2018-05-21] MEDS ORDERED: LITH600 PO (11:14)
[2018-05-21] MEDS ORDERED: PRAZ1 PO (11:14)
[2018-05-21] MEDS ORDERED: GABA-533 PO (11:15)
[2018-05-21] MEDS ORDERED: FERR-89 PO (11:15)
[2018-05-21] MEDS ORDERED: ASPI81 PO (11:16)
[2018-05-21] MEDS ORDERED: FURO40 PO (11:16)
[2018-05-21] MEDS ORDERED: MONT10TA21 PO (11:16)
[2018-05-21] MEDS ORDERED: CARV6 PO (11:16)
[2018-05-21] MEDS ORDERED: TAMS0.4C32 PO (11:17)
[2018-05-21] MEDS: ALBUTEROL SULFATE HFA 90 MCG/PUFF 8 GM INHALER IH PRN (11:17)
[2018-05-21] MEDS ORDERED: SPIR50 PO (11:17)
[2018-05-21] MEDS ORDERED: LISI-661 PO (11:17)
== END 2018-05-21 14:40 | disposition home or self-care (01) | DRG 750 ==
LOC: EMS 09:45 → 3EC 16:53
PROVIDERS: ADMIT Psychiatry & Neurology Child & Adolescent Psychiatry
DX: F25.0 Schizoaffective disorder, bipolar type (principal); R45.851 Suicidal ideations; I11.0 Hypertensive heart disease with heart failure; I50.9 Heart failure, unspecified; E03.9 Hypothyroidism, unspecified; G40.909 Epilepsy, unspecified, not intractable, without status epilepticus; I48.2 Chronic atrial fibrillation; D64.9 Anemia, unspecified; F12.10 Cannabis abuse, uncomplicated; J44.9 Chronic obstructive pulmonary disease, unspecified; M54.9 Dorsalgia, unspecified; G89.29 Other chronic pain; F14.10 Cocaine abuse, uncomplicated; F15.10 Other stimulant abuse, uncomplicated; N40.0 Benign prostatic hyperplasia without lower urinary tract symptoms; F19.10 Other psychoactive substance abuse, uncomplicated; F41.9 Anxiety disorder, unspecified; F10.10 Alcohol abuse, uncomplicated; H40.9 Unspecified glaucoma; Z91.5 Personal history of self-harm; Z79.899 Other long term (current) drug therapy; Z71.41 Alcohol abuse counseling and surveillance of alcoholic; Z59.0 Homelessness; Z88.0 Allergy status to penicillin; Z88.8 Allergy status to other drugs, medicaments and biological substances
CPT/HCPCS: 87081; 94640; G0480; J3535

== ENCOUNTER 2018-05-31 14:37 | Inpatient (IN) | payer MEDICAID, OTHER ==
[~2018-05-31] VITALS: Ht 170.2 cm; Wt 94.2 kg
[~2018-05-31 14:37] MED LIST changes: +BUSP5TAB20 PO; +FERR-89 PO; +GABA-533 PO; +LISI-661 PO; -LISI10TA7 PO; +MONT10TA21 PO; +PRAZ1 PO; -PRAZ1CAP5 PO; +SERT100T12 PO; -SERT50TA12 PO; +TRAZ-220 PO
[2018-05-31 15:44] LABS: BASOPHILS % (AUTO) 0.4 % (0.0-2.0); EOSINOPHILS % (AUTO) 0 % (1.0-6.0); HEMATOCRIT 33.4 % (41-53); LYMPHOCYTES # (AUTO) 0.5 K/uL (1.0-4.8); LYMPHOCYTES % (AUTO) 6.2 % (22.0-44.0); MEAN CORPUSCULAR HGB CONC 32.8 G/dL (31.0-37.0); MEAN CORPUSCULAR VOLUME 85 fL (80-100); MONOCYTES # (AUTO) 0.5 K/uL (0.1-1.0); MONOCYTES % (AUTO) 5.9 % (2.0-9.0); PLATELET COUNT (AUTO) 323 K/uL (150-450); RED BLOOD CELL COUNT(AUTO) 3.91 MIL/uL (4.50-5.90); RED CELL DISTRIBUTION WIDTH 14.8 % (11.5-14.5)
[2018-05-31 16:05] LABS: NEUTROPHILS % (AUTO) 87.5 % (40.0-70.0)
[2018-05-31 16:07] LABS: ANION GAP 4 mmol/L (8-16); CALCIUM, TOTAL 8.8 mg/dL (8.8-10.5); CARBON DIOXIDE 30 mmol/L (22-29); CHLORIDE 105 mmol/L (98-107); CREATININE 0.74 mg/dL (0.60-1.30); GLOMERULAR FILTR. RATE CALC > 60 mL/min (>60); GLUCOSE,RANDOM 112 mg/dL (70-110); POTASSIUM 4.5 mmol/L (3.5-5.1); SODIUM SERUM 139 mmol/L (136-145); UREA NITROGEN, BLOOD 15 mg/dL (7-18)
[2018-05-31 16:15] LABS: AMPHET/METH SCREEN,URINE POSITIVE (NEGATIVE); BARBITURATE SCREEN, URINE NEGATIVE (NEGATIVE); BENZODIAZEPINES SCREEN,URINE NEGATIVE (NEGATIVE); CANNABINOID SCREEN,URINE NEGATIVE (NEGATIVE); COCAINE SCREEN,URINE NEGATIVE (NEGATIVE); METHADONE SCREEN, URINE NEGATIVE (NEGATIVE); OPIATE SCREEN,URINE NEGATIVE (NEGATIVE); PHENCYCLIDINE SCREEN,URINE NEGATIVE (NEGATIVE)
[2018-05-31 16:20] LABS: ALANINE AMINOTRANSFERASE 71 U/L (12-78); ALBUMIN 3.2 g/dL (3.4-5.0); ALKALINE PHOSPHATASE 128 U/L (46-116); ASPARTATE AMINOTRANSFERASE 47 U/L (15-37); BILIRUBIN,TOTAL 0.2 mg/dL (0.1-1.0); TOTAL PROTEIN, SERUM 6.6 g/dL (6.4-8.2)
[2018-05-31] MEDS ORDERED: QUEtiapine FUMARATE 100 MG TABLET PO ONE (18:30)
[2018-05-31] MEDS ORDERED: LORazepam 2 MG TABLET PO ONE (18:30)
[2018-05-31] MEDS ORDERED: QUEtiapine FUMARATE 100 MG TABLET PO PRN (18:45)
[2018-05-31 20:30] VITALS: BP 145/84
[2018-05-31] MEDS ORDERED: MAGNESIUM HYDROXIDE SUSPENSION 30 ML UDCUP PO PRN (21:45)
[2018-05-31] MEDS ORDERED: ONDANSETRON HCL 4 MG TABLET PO PRN (21:45)
[2018-05-31] MEDS ORDERED: ACETAMINOPHEN 325 MG TABLET PO PRN (21:45)
[2018-05-31] MEDS ORDERED: MAG HYDROX/AL HYDROX/SIMETH ES 30 ML SUSPENSION UDCUP PO PRN (21:45)
[2018-05-31] MEDS ORDERED: NICOTINE 14 MG/24 HOUR PATCH TD PRN (21:45)
[2018-05-31] MEDS ORDERED: DOCUSATE SODIUM 100 MG CAPSULE PO PRN (21:45)
[2018-05-31] MEDS ORDERED: PETROLATUM,WHITE 71 GM JELLY TP PRN (21:45)
[2018-05-31] MEDS ORDERED: LOPERAMIDE HCL 2 MG CAPSULE PO PRN (21:45)
[2018-05-31] MEDS ORDERED: GuaiFENesin/D-METHORPHAN [SUGAR-FREE] 200-20MG/10 ML SYRUP UDCUP PO PRN (21:45)
[2018-05-31] MEDS ORDERED: CloNIDine HCL 0.1 MG TABLET PO PRN (21:45)
[2018-06-01] MEDS: GABAPENTIN 400 MG CAPSULE PO SCH ×4 (00:27→23:50)
[2018-06-01] MEDS ORDERED: PNEUMOCOCCAL VACCINE POLYVALENT 0.5 ML VIAL [PPSV23] IM ONE (02:15)
[2018-06-01] MEDS: IBUPROFEN 400 MG TABLET PO PRN ×2 (05:37→13:51)
[2018-06-01 06:59] LABS: BASOPHILS % (AUTO) 0.5 % (0.0-2.0); HEMATOCRIT 31.3 % (41-53); HEMOGLOBIN 10.6 g/dL (13.5-17.5); LYMPHOCYTES # (AUTO) 2.3 K/uL (1.0-4.8); MEAN CORPUSCULAR HEMOGLOBIN 28.8 pg (26.0-34.0); MEAN CORPUSCULAR HGB CONC 33.9 G/dL (31.0-37.0); MEAN CORPUSCULAR VOLUME 85 fL (80-100); MONOCYTES # (AUTO) 1.1 K/uL (0.1-1.0); MONOCYTES % (AUTO) 10.3 % (2.0-9.0); NEUTROPHILS # (AUTO) 7.2 K/uL (1.8-7.7); NEUTROPHILS % (AUTO) 66.2 % (40.0-70.0); PLATELET COUNT (AUTO) 372 K/uL (150-450); RED BLOOD CELL COUNT(AUTO) 3.68 MIL/uL (4.50-5.90); RED CELL DISTRIBUTION WIDTH 15.1 % (11.5-14.5)
[2018-06-01] MEDS: LISINOPRIL 10 MG TABLET PO SCH (07:14)
[2018-06-01] MEDS: LORazepam 2 MG TABLET PO PRN ×2 (07:14→17:59)
[2018-06-01] MEDS: ASPIRIN 81 MG CHEWABLE TABLET PO SCH (07:14)
[2018-06-01] MEDS: TAMSULOSIN HCL 0.4 MG CAPSULE PO SCH (07:14)
[2018-06-01] MEDS: CARVEDILOL 6.25 MG TABLET PO SCH (07:14)
[2018-06-01] MEDS: FUROSEMIDE 40 MG TABLET PO SCH (07:14)
[2018-06-01] MEDS: MONTELUKAST SODIUM 10 MG TABLET PO SCH (07:14)
[2018-06-01] MEDS: FERROUS SULFATE 325 MG EC TABLET PO SCH ×3 (07:15→17:27)
[2018-06-01] MEDS: SPIRONOLACTONE 50 MG TABLET PO SCH (07:15)
[2018-06-01 07:24] LABS: ALANINE AMINOTRANSFERASE 59 U/L (12-78); ALBUMIN 2.8 g/dL (3.4-5.0); ALKALINE PHOSPHATASE 119 U/L (46-116); ANION GAP 2 mmol/L (8-16); ASPARTATE AMINOTRANSFERASE 30 U/L (15-37); BILIRUBIN,TOTAL 0.2 mg/dL (0.1-1.0); CALCIUM, TOTAL 8.4 mg/dL (8.8-10.5); CARBON DIOXIDE 32 mmol/L (22-29); CHLORIDE 106 mmol/L (98-107); CHOL/HDL RATIO 2.3 (4.2-7.3); CHOLESTEROL 86 mg/dL (131-200); CREATININE 0.78 mg/dL (0.60-1.30); GLOMERULAR FILTR. RATE CALC > 60 mL/min (>60); GLUCOSE,RANDOM 112 mg/dL (70-110); HDL CHOLESTEROL 37 mg/dL (40-60); POTASSIUM 3.8 mmol/L (3.5-5.1); SODIUM SERUM 140 mmol/L (136-145); THYROID STIMULATING HORMONE 0.41 uIU/mL (0.36-3.74); TOTAL PROTEIN, SERUM 5.6 g/dL (6.4-8.2); UREA NITROGEN, BLOOD 11 mg/dL (7-18)
[2018-06-01 07:34] LABS: HEMOGLOBIN A1C 5.9 % (4.5-6.2)
[2018-06-01 08:01] LABS: LDL CHOL (CALC.) 46 mg/dL (0-130)
[2018-06-01 08:45] LABS: TRIGLYCERIDES < 15 mg/dL (15-150)
[2018-06-01 09:15] VITALS: BP 166/96
[2018-06-01] MEDS: SERTRALINE HCL 100 MG TABLET PO SCH (13:44)
[2018-06-01] MEDS: BusPIRone HCL 5 MG TABLET PO SCH ×2 (13:44→16:02)
[2018-06-01] MEDS: ALBUTEROL SULFATE HFA 90 MCG/PUFF 8 GM INHALER IH PRN (15:39)
[2018-06-01 16:00] VITALS: BP 133/60
[2018-06-01] MEDS: LITHIUM CARBONATE 600 MG CAPSULE PO SCH (17:27)
[2018-06-01] MEDS: PRAZOSIN HCL 1 MG CAPSULE PO SCH (21:00)
[2018-06-01] MEDS: TraZODone HCL 100 MG TABLET PO SCH (21:00)
[2018-06-02 00:06] VITALS: BP 136/79
[2018-06-02] MEDS: IBUPROFEN 400 MG TABLET PO PRN (00:06)
[2018-06-02] MEDS: ZOLPIDEM TARTRATE 10 MG TABLET PO PRN (00:10)
[2018-06-02] MEDS: FERROUS SULFATE 325 MG EC TABLET PO SCH ×3 (06:48→17:00)
[2018-06-02] MEDS: LITHIUM CARBONATE 600 MG CAPSULE PO SCH ×2 (06:48→17:00)
[2018-06-02] MEDS: ALBUTEROL SULFATE HFA 90 MCG/PUFF 8 GM INHALER IH PRN ×2 (07:52→17:02)
[2018-06-02] MEDS: GABAPENTIN 400 MG CAPSULE PO SCH ×3 (07:52→23:46)
[2018-06-02] MEDS: TAMSULOSIN HCL 0.4 MG CAPSULE PO SCH (07:52)
[2018-06-02] MEDS: LISINOPRIL 10 MG TABLET PO SCH (07:52)
[2018-06-02] MEDS: ASPIRIN 81 MG CHEWABLE TABLET PO SCH (07:52)
[2018-06-02] MEDS: SERTRALINE HCL 100 MG TABLET PO SCH (07:53)
[2018-06-02] MEDS: BusPIRone HCL 5 MG TABLET PO SCH ×3 (07:53→17:00)
[2018-06-02] MEDS: SPIRONOLACTONE 50 MG TABLET PO SCH (07:53)
[2018-06-02] MEDS: CARVEDILOL 6.25 MG TABLET PO SCH (07:53)
[2018-06-02] MEDS: MONTELUKAST SODIUM 10 MG TABLET PO SCH (07:53)
[2018-06-02] MEDS: FUROSEMIDE 40 MG TABLET PO SCH (07:54)
[2018-06-02] MEDS: LORazepam 2 MG TABLET PO PRN ×2 (07:55→17:43)
[2018-06-02 08:20] VITALS: BP 141/93
[2018-06-02 16:00] VITALS: BP 145/89
[2018-06-02] MEDS: TraZODone HCL 100 MG TABLET PO SCH (20:21)
[2018-06-02] MEDS: PRAZOSIN HCL 1 MG CAPSULE PO SCH (20:21)
[2018-06-03] MEDS: FERROUS SULFATE 325 MG EC TABLET PO SCH ×3 (06:46→17:13)
[2018-06-03] MEDS: LITHIUM CARBONATE 600 MG CAPSULE PO SCH ×2 (06:46→17:13)
[2018-06-03] MEDS: ASPIRIN 81 MG CHEWABLE TABLET PO SCH (08:36)
[2018-06-03] MEDS: TAMSULOSIN HCL 0.4 MG CAPSULE PO SCH (08:36)
[2018-06-03] MEDS: BusPIRone HCL 5 MG TABLET PO SCH ×3 (08:38→17:13)
[2018-06-03] MEDS: SPIRONOLACTONE 50 MG TABLET PO SCH (08:51)
[2018-06-03] MEDS: CARVEDILOL 6.25 MG TABLET PO SCH (08:52)
[2018-06-03] MEDS: FUROSEMIDE 40 MG TABLET PO SCH (08:53)
[2018-06-03] MEDS: SERTRALINE HCL 100 MG TABLET PO SCH (08:53)
[2018-06-03] MEDS: MONTELUKAST SODIUM 10 MG TABLET PO SCH (08:53)
[2018-06-03] MEDS: LISINOPRIL 10 MG TABLET PO SCH (08:54)
[2018-06-03] MEDS: GABAPENTIN 400 MG CAPSULE PO SCH ×2 (08:57→17:13)
[2018-06-03 09:00] VITALS: BP 108/65
[2018-06-03] MEDS: LORazepam 2 MG TABLET PO PRN (12:53)
[2018-06-03] MEDS ORDERED: TraMADol HCL 50 MG TABLET PO PRN (14:00)
[2018-06-03] MEDS: TraZODone HCL 100 MG TABLET PO SCH (20:26)
[2018-06-03] MEDS: PRAZOSIN HCL 1 MG CAPSULE PO SCH (21:00)
[2018-06-03 21:07] VITALS: BP 140/68
[2018-06-04] MEDS: GABAPENTIN 400 MG CAPSULE PO SCH ×3 (00:17→17:30)
[2018-06-04] MEDS: ALBUTEROL SULFATE HFA 90 MCG/PUFF 8 GM INHALER IH PRN (05:36)
[2018-06-04] MEDS: FERROUS SULFATE 325 MG EC TABLET PO SCH ×3 (07:01→17:31)
[2018-06-04] MEDS: LITHIUM CARBONATE 600 MG CAPSULE PO SCH ×2 (07:01→17:31)
[2018-06-04] MEDS: LORazepam 2 MG TABLET PO PRN ×2 (07:34→21:00)
[2018-06-04 08:05] VITALS: BP 131/90
[2018-06-04] MEDS: LISINOPRIL 10 MG TABLET PO SCH (09:15)
[2018-06-04] MEDS: SPIRONOLACTONE 50 MG TABLET PO SCH (09:16)
[2018-06-04] MEDS: TAMSULOSIN HCL 0.4 MG CAPSULE PO SCH (09:16)
[2018-06-04] MEDS: BusPIRone HCL 5 MG TABLET PO SCH ×3 (09:16→17:30)
[2018-06-04] MEDS: ASPIRIN 81 MG CHEWABLE TABLET PO SCH (09:16)
[2018-06-04] MEDS: FUROSEMIDE 40 MG TABLET PO SCH (09:17)
[2018-06-04] MEDS: CARVEDILOL 6.25 MG TABLET PO SCH (09:17)
[2018-06-04] MEDS: MONTELUKAST SODIUM 10 MG TABLET PO SCH (09:18)
[2018-06-04] MEDS: SERTRALINE HCL 100 MG TABLET PO SCH (09:18)
[2018-06-04 16:20] VITALS: BP 120/74
[2018-06-04] MEDS: ZOLPIDEM TARTRATE 10 MG TABLET PO PRN (21:00)
[2018-06-04] MEDS: PRAZOSIN HCL 1 MG CAPSULE PO SCH (21:39)
[2018-06-04] MEDS: TraZODone HCL 100 MG TABLET PO SCH (21:39)
[2018-06-05] MEDS: GABAPENTIN 400 MG CAPSULE PO SCH ×2 (00:10→07:30)
[2018-06-05] MEDS: IBUPROFEN 400 MG TABLET PO PRN (03:13)
[2018-06-05] MEDS: LORazepam 2 MG TABLET PO PRN ×2 (03:13→07:30)
[2018-06-05] MEDS: LITHIUM CARBONATE 600 MG CAPSULE PO SCH (07:03)
[2018-06-05] MEDS: FERROUS SULFATE 325 MG EC TABLET PO SCH ×2 (07:03→12:06)
[2018-06-05] MEDS: TAMSULOSIN HCL 0.4 MG CAPSULE PO SCH (07:30)
[2018-06-05] MEDS: LISINOPRIL 10 MG TABLET PO SCH (07:30)
[2018-06-05] MEDS: SERTRALINE HCL 100 MG TABLET PO SCH (07:31)
[2018-06-05] MEDS: ASPIRIN 81 MG CHEWABLE TABLET PO SCH (07:31)
[2018-06-05] MEDS: FUROSEMIDE 40 MG TABLET PO SCH (07:31)
[2018-06-05] MEDS: SPIRONOLACTONE 50 MG TABLET PO SCH (07:31)
[2018-06-05] MEDS: CARVEDILOL 6.25 MG TABLET PO SCH (07:31)
[2018-06-05] MEDS: MONTELUKAST SODIUM 10 MG TABLET PO SCH (07:31)
[2018-06-05] MEDS: BusPIRone HCL 5 MG TABLET PO SCH ×2 (07:31→12:06)
[2018-06-05] MEDS: ALBUTEROL SULFATE HFA 90 MCG/PUFF 8 GM INHALER IH PRN (07:32)
[2018-06-05 08:05] VITALS: BP 134/74
[2018-06-05] MEDS ORDERED: SERT100T12 PO (09:25)
[2018-06-05] MEDS ORDERED: BUSP5TAB20 PO (09:25)
[2018-06-05] MEDS ORDERED: TRAZ-220 PO (09:25)
[2018-06-05] MEDS ORDERED: PRAZ1 PO (09:25)
[2018-06-05] MEDS ORDERED: LITH600 PO (09:25)
== END 2018-06-05 14:30 | disposition home or self-care (01) | DRG 750 ==
LOC: EMS 14:38 → 3EC 19:30
DX: F25.0 Schizoaffective disorder, bipolar type (principal); F15.20 Other stimulant dependence, uncomplicated; I11.0 Hypertensive heart disease with heart failure; I50.9 Heart failure, unspecified; R45.851 Suicidal ideations; B15.9 Hepatitis A without hepatic coma; G40.909 Epilepsy, unspecified, not intractable, without status epilepticus; I48.2 Chronic atrial fibrillation; F10.10 Alcohol abuse, uncomplicated; F12.90 Cannabis use, unspecified, uncomplicated; H40.9 Unspecified glaucoma; J44.9 Chronic obstructive pulmonary disease, unspecified; N40.0 Benign prostatic hyperplasia without lower urinary tract symptoms; B19.20 Unspecified viral hepatitis C without hepatic coma; F32.9 Major depressive disorder, single episode, unspecified; F41.9 Anxiety disorder, unspecified; G89.29 Other chronic pain; M54.9 Dorsalgia, unspecified; Z88.0 Allergy status to penicillin; Z59.0 Homelessness; Z79.899 Other long term (current) drug therapy; Z71.41 Alcohol abuse counseling and surveillance of alcoholic; Z81.8 Family history of other mental and behavioral disorders; Z91.5 Personal history of self-harm; Z88.8 Allergy status to other drugs, medicaments and biological substances
CPT/HCPCS: 83036; 84443; 87081; 93005; G0480; J3535

== ENCOUNTER 2018-09-09 20:28 | Inpatient (IN) | payer MEDICAID, OTHER ==
[~2018-09-09] VITALS: Ht 170.2 cm; Wt 96.5 kg
[2018-09-09] MEDS ORDERED: LORA2TAB2 PO (21:34)
[2018-09-09 23:16] LABS: BASOPHILS % (AUTO) 0.6 % (0.0-2.0); EOSINOPHILS % (AUTO) 5.7 % (1.0-6.0); HEMATOCRIT 32.3 % (41-53); HEMOGLOBIN 10.7 g/dL (13.5-17.5); LYMPHOCYTES % (AUTO) 10.7 % (22.0-44.0); MEAN CORPUSCULAR HEMOGLOBIN 28.4 pg (26.0-34.0); MEAN CORPUSCULAR HGB CONC 33.1 G/dL (31.0-37.0); MEAN CORPUSCULAR VOLUME 86 fL (80-100); MONOCYTES % (AUTO) 10.9 % (2.0-9.0); NEUTROPHILS # (AUTO) 6.7 K/uL (1.8-7.7); NEUTROPHILS % (AUTO) 72.1 % (40.0-70.0); PLATELET COUNT (AUTO) 234 K/uL (150-450); RED BLOOD CELL COUNT(AUTO) 3.77 MIL/uL (4.50-5.90); RED CELL DISTRIBUTION WIDTH 16.3 % (11.5-14.5)
[2018-09-09 23:38] LABS: ANION GAP 8 mmol/L (8-16); CALCIUM, TOTAL 8.3 mg/dL (8.8-10.5); CARBON DIOXIDE 27 mmol/L (22-29); CHLORIDE 107 mmol/L (98-107); CREATININE 0.63 mg/dL (0.60-1.30); GLOMERULAR FILTR. RATE CALC > 60 mL/min (>60); GLUCOSE,RANDOM 125 mg/dL (70-110); POTASSIUM 3.9 mmol/L (3.5-5.1); SODIUM SERUM 142 mmol/L (136-145); UREA NITROGEN, BLOOD 15 mg/dL (7-18)
[2018-09-09 23:43] LABS: ALANINE AMINOTRANSFERASE 26 U/L (12-78); ALKALINE PHOSPHATASE 86 U/L (46-116); ASPARTATE AMINOTRANSFERASE 24 U/L (15-37); BILIRUBIN,TOTAL 0.2 mg/dL (0.1-1.0); LIPASE 63 U/L (73-393); TOTAL PROTEIN, SERUM 5.9 g/dL (6.4-8.2)
[2018-09-10] MEDS ORDERED: FUROSEMIDE 40 MG/4 ML VIAL IVP ONE (01:45)
[2018-09-10 02:38] LABS: AMPHET/METH SCREEN,URINE POSITIVE (NEGATIVE); BARBITURATE SCREEN, URINE NEGATIVE (NEGATIVE); BENZODIAZEPINES SCREEN,URINE NEGATIVE (NEGATIVE); CANNABINOID SCREEN,URINE NEGATIVE (NEGATIVE); COCAINE SCREEN,URINE NEGATIVE (NEGATIVE); METHADONE SCREEN, URINE NEGATIVE (NEGATIVE); OPIATE SCREEN,URINE NEGATIVE (NEGATIVE)
[2018-09-10 03:05] LABS: PHENCYCLIDINE SCREEN,URINE NEGATIVE (NEGATIVE)
[2018-09-10] MEDS ORDERED: ONDANSETRON HCL 4 MG/2 ML VIAL IVP PRN ×2 (04:15→11:00)
[2018-09-10] MEDS ORDERED: ACETAMINOPHEN 325 MG TABLET PO PRN ×2 (04:15→11:00)
[2018-09-10] MEDS ORDERED: 0.9% SODIUM CHLORIDE 10 ML SYRINGE IVP PRN (04:15)
[2018-09-10 10:37] VITALS: BP 124/64
[2018-09-10] MEDS ORDERED: BISACODYL 10 MG RECTAL RECTAL SUPPOSITORY PR PRN (11:00)
[2018-09-10] MEDS ORDERED: IPRATROPIUM BROMIDE 0.5 MG/2.5 ML NEB SOLUTION NEB PRN (11:00)
[2018-09-10] MEDS ORDERED: MORPHINE SULFATE 2 MG/ML SYRINGE IVP PRN (11:00)
[2018-09-10] MEDS ORDERED: ZOLPIDEM TARTRATE 5 MG TABLET PO PRN (11:00)
[2018-09-10] MEDS ORDERED: MAGNESIUM HYDROXIDE SUSPENSION 30 ML UDCUP PO PRN (11:00)
[2018-09-10] MEDS ORDERED: ALBUTEROL SULFATE 2.5 MG/0.5 ML NEB SOLUTION NEB PRN (11:00)
[2018-09-10 12:34] VITALS: BP 129/88
[2018-09-10] MEDS: MethylPREDNISolone SOD SUCC 125 MG/2 ML VIAL IVP SCH ×2 (12:44→17:16)
[2018-09-10] MEDS: HYDROCODONE/ACETAMINOPHEN 5-325 MG TABLET PO PRN ×3 (12:45→22:58)
[2018-09-10 14:44] LABS: PHOSPHORUS 3.1 mg/dL (2.5-4.9)
[2018-09-10] MEDS: ALBUTEROL SULFATE 2.5 MG/0.5 ML NEB SOLUTION NEB SCH ×2 (14:55→20:00)
[2018-09-10] MEDS: IPRATROPIUM BROMIDE 0.5 MG/2.5 ML NEB SOLUTION NEB SCH ×2 (14:55→20:00)
[2018-09-10 15:15] VITALS: BP 127/87
[2018-09-10] MEDS: HEPARIN SODIUM,PORCINE 5,000 UNITS/ML VIAL SQ SCH (16:00)
[2018-09-10] MEDS: BENZONATATE 100 MG CAPSULE PO SCH ×2 (17:17→20:45)
[2018-09-10] MEDS: BusPIRone HCL 5 MG TABLET PO SCH ×2 (17:17→20:46)
[2018-09-10 19:29] VITALS: BP 119/73
[2018-09-10] MEDS: DOCUSATE SODIUM 100 MG CAPSULE PO SCH (20:45)
[2018-09-10] MEDS: GuaiFENesin SR 600 MG ER TABLET PO SCH (20:45)
[2018-09-10] MEDS: PRAZOSIN HCL 1 MG CAPSULE PO SCH (20:46)
[2018-09-10] MEDS: POTASSIUM PHOS/SODIUM PHOS MIXTURE 1 POWDER PACKET PO SCH (20:46)
[2018-09-11 00:10] VITALS: BP 112/64
[2018-09-11] MEDS: HEPARIN SODIUM,PORCINE 5,000 UNITS/ML VIAL SQ SCH ×2 (00:25→08:55)
[2018-09-11] MEDS: MethylPREDNISolone SOD SUCC 125 MG/2 ML VIAL IVP SCH ×2 (00:26→05:19)
[2018-09-11] MEDS: ALBUTEROL SULFATE 2.5 MG/0.5 ML NEB SOLUTION NEB SCH ×4 (02:40→19:47)
[2018-09-11] MEDS: IPRATROPIUM BROMIDE 0.5 MG/2.5 ML NEB SOLUTION NEB SCH ×4 (02:41→19:47)
[2018-09-11 04:04] VITALS: BP 133/85
[2018-09-11 08:09] VITALS: BP 141/83
[2018-09-11] MEDS: BENZONATATE 100 MG CAPSULE PO SCH ×3 (08:53→20:51)
[2018-09-11] MEDS: SPIRONOLACTONE 50 MG TABLET PO SCH (08:53)
[2018-09-11] MEDS: SERTRALINE HCL 100 MG TABLET PO SCH (08:53)
[2018-09-11] MEDS: BusPIRone HCL 5 MG TABLET PO SCH (08:53)
[2018-09-11] MEDS: LISINOPRIL 10 MG TABLET PO SCH (08:54)
[2018-09-11] MEDS: GuaiFENesin SR 600 MG ER TABLET PO SCH ×2 (08:54→20:50)
[2018-09-11] MEDS: PANTOPRAZOLE SODIUM 40 MG DR TABLET PO SCH (08:54)
[2018-09-11] MEDS: POTASSIUM PHOS/SODIUM PHOS MIXTURE 1 POWDER PACKET PO SCH (08:54)
[2018-09-11] MEDS: ASPIRIN 81 MG CHEWABLE TABLET PO SCH (08:54)
[2018-09-11] MEDS: DOCUSATE SODIUM 100 MG CAPSULE PO SCH ×2 (08:54→20:50)
[2018-09-11] MEDS: CARVEDILOL 6.25 MG TABLET PO SCH (08:54)
[2018-09-11] MEDS ORDERED: FUROSEMIDE 40 MG TABLET PO SCH (09:00)
[2018-09-11] MEDS: TAMSULOSIN HCL 0.4 MG CAPSULE PO SCH (09:15)
[2018-09-11] MEDS: HYDROCODONE/ACETAMINOPHEN 5-325 MG TABLET PO PRN (09:15)
[2018-09-11] MEDS ORDERED: LORazepam 2 MG/ML VIAL IVP PRN (10:45)
[2018-09-11] MEDS ORDERED: LORazepam 1 MG TABLET PO PRN (11:15)
[2018-09-11] MEDS: PredniSONE 10 MG TABLET PO SCH (11:35)
[2018-09-11 12:06] VITALS: BP 111/64
[2018-09-11 16:02] VITALS: BP 113/70
[2018-09-11] MEDS ORDERED: QUEtiapine FUMARATE 100 MG TABLET PO ONE (17:00)
[2018-09-11] MEDS ORDERED: ZOLPIDEM TARTRATE 10 MG TABLET PO PRN (17:00)
[2018-09-11] MEDS ORDERED: LORazepam 2 MG/ML VIAL IM ONE (17:00)
[2018-09-11] MEDS ORDERED: QUEtiapine FUMARATE 100 MG TABLET PO PRN (17:00)
[2018-09-11 20:00] VITALS: BP 102/53
[2018-09-11] MEDS: PRAZOSIN HCL 1 MG CAPSULE PO SCH (20:48)
[2018-09-11] MEDS: FUROSEMIDE 40 MG TABLET PO SCH (20:51)
[2018-09-11] MEDS: QUEtiapine FUMARATE 200 MG TABLET PO SCH (20:51)
[2018-09-12] VITALS (7 sets, daily range): BP systolic 105–127; BP diastolic 65–77
[2018-09-12] MEDS: IPRATROPIUM BROMIDE 0.5 MG/2.5 ML NEB SOLUTION NEB SCH ×4 (02:20→20:05)
[2018-09-12] MEDS: ALBUTEROL SULFATE 2.5 MG/0.5 ML NEB SOLUTION NEB SCH ×4 (02:20→20:05)
[2018-09-12 05:46] LABS: BASOPHILS % (AUTO) 0.4 % (0.0-2.0); EOSINOPHILS % (AUTO) 0.3 % (1.0-6.0); HEMOGLOBIN 11.3 g/dL (13.5-17.5); LYMPHOCYTES # (AUTO) 1.4 K/uL (1.0-4.8); LYMPHOCYTES % (AUTO) 10.4 % (22.0-44.0); MEAN CORPUSCULAR HEMOGLOBIN 27.4 pg (26.0-34.0); MEAN CORPUSCULAR HGB CONC 31.5 G/dL (31.0-37.0); MEAN CORPUSCULAR VOLUME 87 fL (80-100); NEUTROPHILS # (AUTO) 10.6 K/uL (1.8-7.7); NEUTROPHILS % (AUTO) 80.9 % (40.0-70.0); PLATELET COUNT (AUTO) 265 K/uL (150-450); RED BLOOD CELL COUNT(AUTO) 4.13 MIL/uL (4.50-5.90); RED CELL DISTRIBUTION WIDTH 16.4 % (11.5-14.5)
[2018-09-12 06:20] LABS: ALANINE AMINOTRANSFERASE 22 U/L (12-78); ALBUMIN 2.8 g/dL (3.4-5.0); ALKALINE PHOSPHATASE 79 U/L (46-116); ANION GAP 9 mmol/L (8-16); ASPARTATE AMINOTRANSFERASE 13 U/L (15-37); BILIRUBIN,TOTAL 0.1 mg/dL (0.1-1.0); CALCIUM, TOTAL 8.6 mg/dL (8.8-10.5); CARBON DIOXIDE 28 mmol/L (22-29); CHLORIDE 103 mmol/L (98-107); GLOMERULAR FILTR. RATE CALC > 60 mL/min (>60); GLUCOSE,RANDOM 133 mg/dL (70-110); POTASSIUM 3.7 mmol/L (3.5-5.1); SODIUM SERUM 140 mmol/L (136-145); TOTAL PROTEIN, SERUM 5.9 g/dL (6.4-8.2); UREA NITROGEN, BLOOD 18 mg/dL (7-18)
[2018-09-12] MEDS: DOCUSATE SODIUM 100 MG CAPSULE PO SCH ×2 (09:02→21:46)
[2018-09-12] MEDS: SPIRONOLACTONE 50 MG TABLET PO SCH (09:02)
[2018-09-12] MEDS: CARVEDILOL 6.25 MG TABLET PO SCH (09:02)
[2018-09-12] MEDS: SERTRALINE HCL 100 MG TABLET PO SCH (09:02)
[2018-09-12] MEDS: PANTOPRAZOLE SODIUM 40 MG DR TABLET PO SCH (09:02)
[2018-09-12] MEDS: ASPIRIN 81 MG CHEWABLE TABLET PO SCH (09:03)
[2018-09-12] MEDS: BENZONATATE 100 MG CAPSULE PO SCH ×3 (09:04→21:47)
[2018-09-12] MEDS: LISINOPRIL 10 MG TABLET PO SCH (09:04)
[2018-09-12] MEDS: FUROSEMIDE 40 MG TABLET PO SCH ×2 (09:04→21:47)
[2018-09-12] MEDS: TAMSULOSIN HCL 0.4 MG CAPSULE PO SCH (09:05)
[2018-09-12] MEDS: HYDROCODONE/ACETAMINOPHEN 5-325 MG TABLET PO PRN (09:05)
[2018-09-12] MEDS: GuaiFENesin SR 600 MG ER TABLET PO SCH ×2 (09:05→21:47)
[2018-09-12] MEDS: PredniSONE 10 MG TABLET PO SCH (09:05)
[2018-09-12] MEDS: LORazepam 2 MG/ML VIAL IVP PRN (12:39)
[2018-09-12] MEDS: PRAZOSIN HCL 1 MG CAPSULE PO SCH (21:46)
[2018-09-12] MEDS: QUEtiapine FUMARATE 200 MG TABLET PO SCH (21:46)
[2018-09-13] MEDS: ALBUTEROL SULFATE 2.5 MG/0.5 ML NEB SOLUTION NEB SCH ×4 (02:24→20:18)
[2018-09-13] MEDS: IPRATROPIUM BROMIDE 0.5 MG/2.5 ML NEB SOLUTION NEB SCH ×4 (02:24→20:18)
[2018-09-13 04:04] VITALS: BP 105/62
[2018-09-13 07:34] VITALS: BP 127/87
[2018-09-13] MEDS: SPIRONOLACTONE 50 MG TABLET PO SCH (08:58)
[2018-09-13] MEDS: ASPIRIN 81 MG CHEWABLE TABLET PO SCH (08:58)
[2018-09-13] MEDS: FUROSEMIDE 40 MG TABLET PO SCH ×2 (08:58→20:36)
[2018-09-13] MEDS: LORazepam 2 MG/ML VIAL IVP PRN (08:58)
[2018-09-13] MEDS: LISINOPRIL 10 MG TABLET PO SCH (08:58)
[2018-09-13] MEDS: DOCUSATE SODIUM 100 MG CAPSULE PO SCH ×2 (08:58→20:36)
[2018-09-13] MEDS: SERTRALINE HCL 100 MG TABLET PO SCH (08:58)
[2018-09-13] MEDS: CARVEDILOL 6.25 MG TABLET PO SCH (08:59)
[2018-09-13] MEDS: PANTOPRAZOLE SODIUM 40 MG DR TABLET PO SCH (08:59)
[2018-09-13] MEDS: PredniSONE 10 MG TABLET PO SCH (08:59)
[2018-09-13] MEDS: GuaiFENesin SR 600 MG ER TABLET PO SCH ×2 (08:59→20:37)
[2018-09-13] MEDS: BENZONATATE 100 MG CAPSULE PO SCH ×3 (08:59→20:37)
[2018-09-13] MEDS: TAMSULOSIN HCL 0.4 MG CAPSULE PO SCH (08:59)
[2018-09-13 11:31] VITALS: BP 110/66
[2018-09-13 15:07] VITALS: BP 113/79
[2018-09-13 19:34] VITALS: BP 128/85
[2018-09-13] MEDS: QUEtiapine FUMARATE 200 MG TABLET PO SCH (20:36)
[2018-09-13] MEDS: PRAZOSIN HCL 1 MG CAPSULE PO SCH (20:37)
[2018-09-13] MEDS: HYDROCODONE/ACETAMINOPHEN 5-325 MG TABLET PO PRN (20:48)
[2018-09-14 00:54] VITALS: BP 116/74
[2018-09-14] MEDS: IPRATROPIUM BROMIDE 0.5 MG/2.5 ML NEB SOLUTION NEB SCH ×4 (02:25→19:36)
[2018-09-14] MEDS: ALBUTEROL SULFATE 2.5 MG/0.5 ML NEB SOLUTION NEB SCH ×4 (02:25→19:36)
[2018-09-14 04:29] VITALS: BP 121/76
[2018-09-14 05:57] LABS: BASOPHILS % (AUTO) 0.1 % (0.0-2.0); EOSINOPHILS % (AUTO) 0.9 % (1.0-6.0); HEMATOCRIT 36.6 % (41-53); HEMOGLOBIN 11.9 g/dL (13.5-17.5); LYMPHOCYTES # (AUTO) 2.4 K/uL (1.0-4.8); LYMPHOCYTES % (AUTO) 20.7 % (22.0-44.0); MEAN CORPUSCULAR HEMOGLOBIN 27.8 pg (26.0-34.0); MEAN CORPUSCULAR HGB CONC 32.4 G/dL (31.0-37.0); MEAN CORPUSCULAR VOLUME 86 fL (80-100); MONOCYTES # (AUTO) 1.6 K/uL (0.1-1.0); MONOCYTES % (AUTO) 13.7 % (2.0-9.0); NEUTROPHILS # (AUTO) 7.5 K/uL (1.8-7.7); NEUTROPHILS % (AUTO) 64.6 % (40.0-70.0); PLATELET COUNT (AUTO) 263 K/uL (150-450); RED BLOOD CELL COUNT(AUTO) 4.26 MIL/uL (4.50-5.90); RED CELL DISTRIBUTION WIDTH 15.9 % (11.5-14.5)
[2018-09-14 07:51] VITALS: BP 157/91
[2018-09-14] MEDS: LISINOPRIL 10 MG TABLET PO SCH (08:20)
[2018-09-14] MEDS: BENZONATATE 100 MG CAPSULE PO SCH ×3 (08:21→20:07)
[2018-09-14] MEDS: ASPIRIN 81 MG CHEWABLE TABLET PO SCH (08:21)
[2018-09-14] MEDS: FUROSEMIDE 40 MG TABLET PO SCH ×2 (08:21→20:07)
[2018-09-14] MEDS: GuaiFENesin SR 600 MG ER TABLET PO SCH ×2 (08:21→20:07)
[2018-09-14] MEDS: CARVEDILOL 6.25 MG TABLET PO SCH (08:21)
[2018-09-14] MEDS: DOCUSATE SODIUM 100 MG CAPSULE PO SCH ×2 (08:22→20:07)
[2018-09-14] MEDS: PANTOPRAZOLE SODIUM 40 MG DR TABLET PO SCH (08:35)
[2018-09-14] MEDS: TAMSULOSIN HCL 0.4 MG CAPSULE PO SCH (08:35)
[2018-09-14] MEDS: HYDROCODONE/ACETAMINOPHEN 5-325 MG TABLET PO PRN ×2 (08:35→20:07)
[2018-09-14] MEDS: PredniSONE 20 MG TABLET PO SCH (08:36)
[2018-09-14] MEDS: SERTRALINE HCL 100 MG TABLET PO SCH (11:31)
[2018-09-14] MEDS: SPIRONOLACTONE 50 MG TABLET PO SCH (11:31)
[2018-09-14 11:32] VITALS: BP 111/71
[2018-09-14] MEDS: LORazepam 2 MG/ML VIAL IVP PRN (11:32)
[2018-09-14 15:32] VITALS: BP 113/71
[2018-09-14 18:43] LABS: ANION GAP 3 mmol/L (8-16); CALCIUM, TOTAL 9.3 mg/dL (8.8-10.5); CARBON DIOXIDE 32 mmol/L (22-29); CHLORIDE 95 mmol/L (98-107); CREATININE 0.75 mg/dL (0.60-1.30); GLOMERULAR FILTR. RATE CALC > 60 mL/min (>60); GLUCOSE,RANDOM 124 mg/dL (70-110); POTASSIUM 4.9 mmol/L (3.5-5.1); SODIUM SERUM 130 mmol/L (136-145); UREA NITROGEN, BLOOD 19 mg/dL (7-18)
[2018-09-14 20:04] VITALS: BP 128/64
[2018-09-14] MEDS: PRAZOSIN HCL 1 MG CAPSULE PO SCH (20:07)
[2018-09-14] MEDS: QUEtiapine FUMARATE 200 MG TABLET PO SCH (20:07)
[2018-09-15 00:12] VITALS: BP 104/71
[2018-09-15] MEDS: ALBUTEROL SULFATE 2.5 MG/0.5 ML NEB SOLUTION NEB SCH ×4 (01:11→20:46)
[2018-09-15] MEDS: IPRATROPIUM BROMIDE 0.5 MG/2.5 ML NEB SOLUTION NEB SCH ×4 (01:11→20:46)
[2018-09-15 04:47] VITALS: BP 116/84
[2018-09-15] MEDS: HYDROCODONE/ACETAMINOPHEN 5-325 MG TABLET PO PRN ×2 (07:50→19:48)
[2018-09-15] MEDS: DOCUSATE SODIUM 100 MG CAPSULE PO SCH ×2 (07:50→19:48)
[2018-09-15] MEDS: TAMSULOSIN HCL 0.4 MG CAPSULE PO SCH (07:50)
[2018-09-15] MEDS: FUROSEMIDE 40 MG TABLET PO SCH ×2 (07:50→19:49)
[2018-09-15] MEDS: PredniSONE 20 MG TABLET PO SCH (07:51)
[2018-09-15] MEDS: BENZONATATE 100 MG CAPSULE PO SCH ×3 (07:51→19:48)
[2018-09-15] MEDS: LISINOPRIL 10 MG TABLET PO SCH (07:51)
[2018-09-15] MEDS: GuaiFENesin SR 600 MG ER TABLET PO SCH ×2 (07:51→19:48)
[2018-09-15] MEDS: PANTOPRAZOLE SODIUM 40 MG DR TABLET PO SCH (07:51)
[2018-09-15] MEDS: ASPIRIN 81 MG CHEWABLE TABLET PO SCH (07:51)
[2018-09-15] MEDS: CARVEDILOL 6.25 MG TABLET PO SCH (07:51)
[2018-09-15] MEDS: SPIRONOLACTONE 50 MG TABLET PO SCH (07:54)
[2018-09-15] MEDS: SERTRALINE HCL 100 MG TABLET PO SCH (07:54)
[2018-09-15 08:05] VITALS: BP 116/86
[2018-09-15 12:04] VITALS: BP 107/71
[2018-09-15] MEDS: LORazepam 2 MG/ML VIAL IVP PRN (13:08)
[2018-09-15 16:01] VITALS: BP 112/88
[2018-09-15] MEDS: PRAZOSIN HCL 1 MG CAPSULE PO SCH (19:48)
[2018-09-15 19:49] VITALS: BP 118/73
[2018-09-15] MEDS: QUEtiapine FUMARATE 200 MG TABLET PO SCH (19:49)
[2018-09-16] VITALS (7 sets, daily range): BP systolic 98–130; BP diastolic 61–92
[2018-09-16] MEDS: IPRATROPIUM BROMIDE 0.5 MG/2.5 ML NEB SOLUTION NEB SCH ×4 (01:36→19:53)
[2018-09-16] MEDS: ALBUTEROL SULFATE 2.5 MG/0.5 ML NEB SOLUTION NEB SCH ×4 (01:36→19:53)
[2018-09-16] MEDS: SPIRONOLACTONE 50 MG TABLET PO SCH (07:42)
[2018-09-16] MEDS: ASPIRIN 81 MG CHEWABLE TABLET PO SCH (07:42)
[2018-09-16] MEDS: DOCUSATE SODIUM 100 MG CAPSULE PO SCH ×2 (07:43→21:04)
[2018-09-16] MEDS: SERTRALINE HCL 100 MG TABLET PO SCH (07:43)
[2018-09-16] MEDS: TAMSULOSIN HCL 0.4 MG CAPSULE PO SCH (07:43)
[2018-09-16] MEDS: LISINOPRIL 10 MG TABLET PO SCH (07:43)
[2018-09-16] MEDS: CARVEDILOL 6.25 MG TABLET PO SCH (07:43)
[2018-09-16] MEDS: BENZONATATE 100 MG CAPSULE PO SCH ×3 (07:43→21:04)
[2018-09-16] MEDS: FUROSEMIDE 40 MG TABLET PO SCH ×2 (07:43→21:03)
[2018-09-16] MEDS: GuaiFENesin SR 600 MG ER TABLET PO SCH ×2 (07:43→21:04)
[2018-09-16] MEDS: PANTOPRAZOLE SODIUM 40 MG DR TABLET PO SCH (07:43)
[2018-09-16] MEDS: PredniSONE 20 MG TABLET PO SCH (07:43)
[2018-09-16] MEDS: HYDROCODONE/ACETAMINOPHEN 5-325 MG TABLET PO PRN ×2 (07:43→21:10)
[2018-09-16 07:45] LABS: ANION GAP 4 mmol/L (8-16); CALCIUM, TOTAL 9.2 mg/dL (8.8-10.5); CARBON DIOXIDE 34 mmol/L (22-29); CHLORIDE 97 mmol/L (98-107); CREATININE 0.84 mg/dL (0.60-1.30); GLOMERULAR FILTR. RATE CALC > 60 mL/min (>60); GLUCOSE,RANDOM 85 mg/dL (70-110); POTASSIUM 4.5 mmol/L (3.5-5.1); SODIUM SERUM 135 mmol/L (136-145); UREA NITROGEN, BLOOD 24 mg/dL (7-18)
[2018-09-16] MEDS: LORazepam 2 MG/ML VIAL IVP PRN (12:15)
[2018-09-16] MEDS: PRAZOSIN HCL 1 MG CAPSULE PO SCH (21:04)
[2018-09-16] MEDS: QUEtiapine FUMARATE 200 MG TABLET PO SCH (21:04)
[2018-09-17] MEDS: IPRATROPIUM BROMIDE 0.5 MG/2.5 ML NEB SOLUTION NEB SCH ×4 (02:14→19:36)
[2018-09-17] MEDS: ALBUTEROL SULFATE 2.5 MG/0.5 ML NEB SOLUTION NEB SCH ×4 (02:14→19:36)
[2018-09-17] MEDS: HYDROCODONE/ACETAMINOPHEN 5-325 MG TABLET PO PRN ×2 (02:26→10:10)
[2018-09-17 05:10] VITALS: BP 113/64
[2018-09-17 07:04] LABS: BASOPHILS % (AUTO) 0.4 % (0.0-2.0); EOSINOPHILS % (AUTO) 1.8 % (1.0-6.0); HEMATOCRIT 41.6 % (41-53); HEMOGLOBIN 13.5 g/dL (13.5-17.5); LYMPHOCYTES # (AUTO) 2.5 K/uL (1.0-4.8); LYMPHOCYTES % (AUTO) 25.4 % (22.0-44.0); MEAN CORPUSCULAR HEMOGLOBIN 27.9 pg (26.0-34.0); MEAN CORPUSCULAR HGB CONC 32.4 G/dL (31.0-37.0); MEAN CORPUSCULAR VOLUME 86 fL (80-100); MONOCYTES # (AUTO) 1.4 K/uL (0.1-1.0); MONOCYTES % (AUTO) 13.7 % (2.0-9.0); NEUTROPHILS # (AUTO) 5.8 K/uL (1.8-7.7); NEUTROPHILS % (AUTO) 58.7 % (40.0-70.0); PLATELET COUNT (AUTO) 276 K/uL (150-450); RED BLOOD CELL COUNT(AUTO) 4.83 MIL/uL (4.50-5.90); RED CELL DISTRIBUTION WIDTH 15.3 % (11.5-14.5)
[2018-09-17 07:18] LABS: ALANINE AMINOTRANSFERASE 24 U/L (12-78); ALBUMIN 3.2 g/dL (3.4-5.0); ALKALINE PHOSPHATASE 82 U/L (46-116); ANION GAP 6 mmol/L (8-16); ASPARTATE AMINOTRANSFERASE 13 U/L (15-37); BILIRUBIN,TOTAL 0.2 mg/dL (0.1-1.0); CALCIUM, TOTAL 9.5 mg/dL (8.8-10.5); CARBON DIOXIDE 32 mmol/L (22-29); CHLORIDE 96 mmol/L (98-107); CREATININE 0.86 mg/dL (0.60-1.30); GLOMERULAR FILTR. RATE CALC > 60 mL/min (>60); GLUCOSE,RANDOM 102 mg/dL (70-110); POTASSIUM 4.2 mmol/L (3.5-5.1); SODIUM SERUM 134 mmol/L (136-145); TOTAL PROTEIN, SERUM 7.1 g/dL (6.4-8.2); UREA NITROGEN, BLOOD 24 mg/dL (7-18)
[2018-09-17 08:01] VITALS: BP 122/69
[2018-09-17] MEDS: PANTOPRAZOLE SODIUM 40 MG DR TABLET PO SCH (09:17)
[2018-09-17] MEDS: ASPIRIN 81 MG CHEWABLE TABLET PO SCH (09:17)
[2018-09-17] MEDS: GuaiFENesin SR 600 MG ER TABLET PO SCH ×2 (09:18→21:52)
[2018-09-17] MEDS: SPIRONOLACTONE 50 MG TABLET PO SCH (09:18)
[2018-09-17] MEDS: TAMSULOSIN HCL 0.4 MG CAPSULE PO SCH (09:18)
[2018-09-17] MEDS: FUROSEMIDE 40 MG TABLET PO SCH ×2 (09:18→21:53)
[2018-09-17] MEDS: PredniSONE 10 MG TABLET PO SCH (09:18)
[2018-09-17] MEDS: DOCUSATE SODIUM 100 MG CAPSULE PO SCH ×2 (09:18→21:52)
[2018-09-17] MEDS: SERTRALINE HCL 100 MG TABLET PO SCH (09:18)
[2018-09-17] MEDS: BENZONATATE 100 MG CAPSULE PO SCH ×3 (09:19→21:52)
[2018-09-17] MEDS: LISINOPRIL 10 MG TABLET PO SCH (09:19)
[2018-09-17] MEDS: CARVEDILOL 6.25 MG TABLET PO SCH (09:19)
[2018-09-17 11:26] VITALS: BP 121/75
[2018-09-17 15:13] VITALS: BP 141/82
[2018-09-17] MEDS: LORazepam 2 MG/ML VIAL IVP PRN (15:19)
[2018-09-17 19:35] VITALS: BP 108/68
[2018-09-17] MEDS: PRAZOSIN HCL 1 MG CAPSULE PO SCH (21:50)
[2018-09-17] MEDS: QUEtiapine FUMARATE 200 MG TABLET PO SCH (21:51)
[2018-09-18 00:02] VITALS: BP 106/61
[2018-09-18] MEDS: ALBUTEROL SULFATE 2.5 MG/0.5 ML NEB SOLUTION NEB SCH ×4 (02:00→19:00)
[2018-09-18] MEDS: IPRATROPIUM BROMIDE 0.5 MG/2.5 ML NEB SOLUTION NEB SCH ×4 (02:00→19:00)
[2018-09-18 04:42] VITALS: BP 123/67
[2018-09-18 08:07] VITALS: BP 130/51
[2018-09-18] MEDS ORDERED: CARVEDILOL 12.5 MG TABLET PO SCH (09:00)
[2018-09-18] MEDS ORDERED: LISINOPRIL 20 MG TABLET PO SCH (09:00)
[2018-09-18] MEDS: PANTOPRAZOLE SODIUM 40 MG DR TABLET PO SCH (09:44)
[2018-09-18] MEDS: FUROSEMIDE 40 MG TABLET PO SCH ×2 (09:44→22:06)
[2018-09-18] MEDS: BENZONATATE 100 MG CAPSULE PO SCH ×3 (09:44→22:06)
[2018-09-18] MEDS: GuaiFENesin SR 600 MG ER TABLET PO SCH ×2 (09:45→22:06)
[2018-09-18] MEDS: HYDROCODONE/ACETAMINOPHEN 5-325 MG TABLET PO PRN (09:45)
[2018-09-18] MEDS: TAMSULOSIN HCL 0.4 MG CAPSULE PO SCH (09:46)
[2018-09-18] MEDS: SERTRALINE HCL 100 MG TABLET PO SCH (09:46)
[2018-09-18] MEDS: SPIRONOLACTONE 50 MG TABLET PO SCH (09:46)
[2018-09-18] MEDS: PredniSONE 10 MG TABLET PO SCH (09:47)
[2018-09-18] MEDS: ASPIRIN 81 MG CHEWABLE TABLET PO SCH (09:47)
[2018-09-18] MEDS: DOCUSATE SODIUM 100 MG CAPSULE PO SCH ×2 (09:47→22:06)
[2018-09-18] MEDS ORDERED: GuaiFENesin/D-METHORPHAN [SUGAR-FREE] 200-20MG/10 ML SYRUP UDCUP PO PRN (10:00)
[2018-09-18] MEDS: LORazepam 2 MG/ML VIAL IVP PRN (10:46)
[2018-09-18 11:09] VITALS: BP 111/66
[2018-09-18 16:00] VITALS: BP 102/59
[2018-09-18 19:31] VITALS: BP 124/69
[2018-09-18] MEDS: QUEtiapine FUMARATE 200 MG TABLET PO SCH (22:05)
[2018-09-18] MEDS: PRAZOSIN HCL 1 MG CAPSULE PO SCH (22:06)
== END 2018-09-18 22:55 | DRG 194 ==
LOC: EMS 20:29 → 5S 09-10 03:30
PROVIDERS: ADMIT Internal Medicine; ATTEND Internal Medicine
DX: I11.0 Hypertensive heart disease with heart failure (principal); E44.0 Moderate protein-calorie malnutrition; I42.9 Cardiomyopathy, unspecified; R45.851 Suicidal ideations; F25.9 Schizoaffective disorder, unspecified; E87.1 Hypo-osmolality and hyponatremia; J44.1 Chronic obstructive pulmonary disease with (acute) exacerbation; I50.23 Acute on chronic systolic (congestive) heart failure; N40.0 Benign prostatic hyperplasia without lower urinary tract symptoms; D64.9 Anemia, unspecified; E66.9 Obesity, unspecified; F15.10 Other stimulant abuse, uncomplicated; F41.9 Anxiety disorder, unspecified; F12.90 Cannabis use, unspecified, uncomplicated; H40.9 Unspecified glaucoma; G89.29 Other chronic pain; F41.0 Panic disorder [episodic paroxysmal anxiety]; M54.9 Dorsalgia, unspecified; R56.9 Unspecified convulsions; I20.9 Angina pectoris, unspecified; Z90.81 Acquired absence of spleen; Z79.899 Other long term (current) drug therapy; Z91.19 Patient's noncompliance with other medical treatment and regimen; Z59.0 Homelessness; Z68.33 Body mass index [BMI] 33.0-33.9, adult; Z88.0 Allergy status to penicillin; Z88.8 Allergy status to other drugs, medicaments and biological substances
CPT/HCPCS: 83735; 84100; 93005; 93306; 94640; 96374; G0378; G0480; J1644; J1940; J2060; J2930

== ENCOUNTER 2018-10-24 08:53 | Inpatient (IN) | payer MEDICAID, OTHER ==
[~2018-10-24] VITALS: Ht 170.2 cm; Wt 97.8 kg
[~2018-10-24 08:53] MED LIST changes: +ACAM333T7 PO; -BUSP5TAB20 PO; -LITH600 PO; -PRAZ1 PO; +PRED5 PO; +QUET200T29 PO; -SERT100T12 PO; -TRAZ-220 PO
[2018-10-24] MEDS ORDERED: LORazepam 1 MG TABLET PO ONE (12:00)
[2018-10-24 12:17] LABS: BASOPHILS % (AUTO) 0.5 % (0.0-2.0); EOSINOPHILS % (AUTO) 1.4 % (1.0-6.0); HEMATOCRIT 41.2 % (41-53); HEMOGLOBIN 13.2 g/dL (13.5-17.5); LYMPHOCYTES # (AUTO) 2.2 K/uL (1.0-4.8); LYMPHOCYTES % (AUTO) 20.5 % (22.0-44.0); MEAN CORPUSCULAR HEMOGLOBIN 27.2 pg (26.0-34.0); MEAN CORPUSCULAR HGB CONC 32.1 G/dL (31.0-37.0); MEAN CORPUSCULAR VOLUME 85 fL (80-100); MONOCYTES # (AUTO) 1.2 K/uL (0.1-1.0); MONOCYTES % (AUTO) 10.7 % (2.0-9.0); NEUTROPHILS # (AUTO) 7.3 K/uL (1.8-7.7); NEUTROPHILS % (AUTO) 66.9 % (40.0-70.0); PLATELET COUNT (AUTO) 405 K/uL (150-450); RED BLOOD CELL COUNT(AUTO) 4.86 MIL/uL (4.50-5.90); RED CELL DISTRIBUTION WIDTH 15.4 % (11.5-14.5)
[2018-10-24 12:18] LABS: ANION GAP 5 mmol/L (8-16); CALCIUM, TOTAL 9.3 mg/dL (8.8-10.5); CARBON DIOXIDE 34 mmol/L (22-29); CHLORIDE 95 mmol/L (98-107); CREATININE 0.87 mg/dL (0.60-1.30); GLOMERULAR FILTR. RATE CALC > 60 mL/min (>60); GLUCOSE,RANDOM 92 mg/dL (70-110); POTASSIUM 4.7 mmol/L (3.5-5.1); SODIUM SERUM 134 mmol/L (136-145); UREA NITROGEN, BLOOD 30 mg/dL (7-18)
[2018-10-24 12:24] LABS: ALANINE AMINOTRANSFERASE 29 U/L (12-78); ALBUMIN 3.7 g/dL (3.4-5.0); ALKALINE PHOSPHATASE 113 U/L (46-116); ASPARTATE AMINOTRANSFERASE 16 U/L (15-37); BILIRUBIN,TOTAL 0.2 mg/dL (0.1-1.0); TOTAL PROTEIN, SERUM 8.3 g/dL (6.4-8.2)
[2018-10-24 12:48] LABS: AMPHET/METH SCREEN,URINE NEGATIVE (NEGATIVE); BARBITURATE SCREEN, URINE NEGATIVE (NEGATIVE); BENZODIAZEPINES SCREEN,URINE NEGATIVE (NEGATIVE); CANNABINOID SCREEN,URINE NEGATIVE (NEGATIVE); COCAINE SCREEN,URINE NEGATIVE (NEGATIVE); METHADONE SCREEN, URINE NEGATIVE (NEGATIVE); OPIATE SCREEN,URINE NEGATIVE (NEGATIVE); PHENCYCLIDINE SCREEN,URINE NEGATIVE (NEGATIVE)
[2018-10-24] MEDS ORDERED: HydrOXYzine PAMOATE 50 MG CAPSULE PO PRN (14:00)
[2018-10-24] MEDS ORDERED: MAGNESIUM HYDROXIDE SUSPENSION 30 ML UDCUP PO PRN (14:00)
[2018-10-24] MEDS ORDERED: LOPERAMIDE HCL 2 MG CAPSULE PO PRN (14:00)
[2018-10-24] MEDS ORDERED: QUEtiapine FUMARATE 100 MG TABLET PO PRN (14:00)
[2018-10-24] MEDS ORDERED: ZOLPIDEM TARTRATE 10 MG TABLET PO PRN (14:00)
[2018-10-24] MEDS: ACETAMINOPHEN 325 MG TABLET PO PRN (16:35)
[2018-10-24] MEDS: MAG HYDROX/AL HYDROX/SIMETH ES 30 ML SUSPENSION UDCUP PO PRN (17:15)
[2018-10-24] MEDS: GABAPENTIN 300 MG CAPSULE PO SCH ×2 (17:20→20:34)
[2018-10-24 18:01] VITALS: BP 147/83
[2018-10-24] MEDS: FERROUS SULFATE 325 MG EC TABLET PO SCH (19:34)
[2018-10-24] MEDS: THIAMINE HCL 100 MG TABLET PO SCH (19:34)
[2018-10-24] MEDS: ACAMPROSATE CALCIUM 333 MG DR TABLET PO SCH (20:23)
[2018-10-24] MEDS ORDERED: QUEtiapine FUMARATE 200 MG TABLET PO SCH (21:00)
[2018-10-25 03:40] VITALS: BP 142/88
[2018-10-25] MEDS: LORazepam 2 MG TABLET PO PRN ×3 (03:42→18:08)
[2018-10-25 07:21] LABS: BASOPHILS % (AUTO) 0.5 % (0.0-2.0); EOSINOPHILS % (AUTO) 2.9 % (1.0-6.0); HEMATOCRIT 39.7 % (41-53); HEMOGLOBIN 13.2 g/dL (13.5-17.5); LYMPHOCYTES # (AUTO) 1.9 K/uL (1.0-4.8); LYMPHOCYTES % (AUTO) 22.8 % (22.0-44.0); MEAN CORPUSCULAR HEMOGLOBIN 28.3 pg (26.0-34.0); MEAN CORPUSCULAR HGB CONC 33.3 G/dL (31.0-37.0); MEAN CORPUSCULAR VOLUME 85 fL (80-100); MONOCYTES # (AUTO) 1.2 K/uL (0.1-1.0); MONOCYTES % (AUTO) 14.3 % (2.0-9.0); NEUTROPHILS # (AUTO) 4.9 K/uL (1.8-7.7); NEUTROPHILS % (AUTO) 59.5 % (40.0-70.0); PLATELET COUNT (AUTO) 377 K/uL (150-450); RED BLOOD CELL COUNT(AUTO) 4.68 MIL/uL (4.50-5.90); RED CELL DISTRIBUTION WIDTH 15.1 % (11.5-14.5)
[2018-10-25 07:58] LABS: FREE T4 (FREE THYROXINE) 1.18 ng/dL (0.76-1.46); THYROID STIMULATING HORMONE 1.04 uIU/mL (0.36-3.74)
[2018-10-25 08:53] VITALS: BP 131/77
[2018-10-25] MEDS: ASPIRIN 81 MG CHEWABLE TABLET PO SCH (09:00)
[2018-10-25] MEDS ORDERED: CARVEDILOL 6.25 MG TABLET PO SCH (09:00)
[2018-10-25] MEDS: FERROUS SULFATE 325 MG EC TABLET PO SCH ×2 (09:01→18:05)
[2018-10-25] MEDS: MONTELUKAST SODIUM 10 MG TABLET PO SCH (09:01)
[2018-10-25] MEDS: GABAPENTIN 300 MG CAPSULE PO SCH ×4 (09:01→20:43)
[2018-10-25] MEDS: MULTIVITAMINS WITH MINERALS, THERAPEUTIC TABLET PO SCH (09:01)
[2018-10-25] MEDS: TAMSULOSIN HCL 0.4 MG CAPSULE PO SCH (09:01)
[2018-10-25] MEDS: THIAMINE HCL 100 MG TABLET PO SCH ×2 (09:01→18:06)
[2018-10-25] MEDS: LISINOPRIL 10 MG TABLET PO SCH (09:01)
[2018-10-25] MEDS: FOLIC ACID 1 MG TABLET PO SCH (09:02)
[2018-10-25] MEDS: SPIRONOLACTONE 50 MG TABLET PO SCH (09:02)
[2018-10-25] MEDS: PredniSONE 5 MG TABLET PO SCH (09:02)
[2018-10-25] MEDS: FUROSEMIDE 40 MG TABLET PO SCH (09:03)
[2018-10-25] MEDS: ACAMPROSATE CALCIUM 333 MG DR TABLET PO SCH ×3 (09:03→18:05)
[2018-10-25] MEDS: DULoxetine HCL 20 MG CAPSULE PO SCH (10:52)
[2018-10-25 16:38] VITALS: BP 102/74
[2018-10-25] MEDS: CARVEDILOL 6.25 MG TABLET PO SCH (18:06)
[2018-10-25] MEDS: GuaiFENesin/D-METHORPHAN [SUGAR-FREE] 200-20MG/10 ML SYRUP UDCUP PO PRN (18:08)
[2018-10-25] MEDS: DOXYCYCLINE HYCLATE 100 MG CAPSULE PO SCH (19:22)
[2018-10-25] MEDS: ALBUTEROL SULFATE HFA 90 MCG/PUFF 8 GM INHALER IH PRN (19:29)
[2018-10-25] MEDS: QUEtiapine FUMARATE 200 MG TABLET PO SCH (20:43)
[2018-10-26] MEDS: ACETAMINOPHEN 325 MG TABLET PO PRN ×2 (03:09→09:29)
[2018-10-26] MEDS: DOXYCYCLINE HYCLATE 100 MG CAPSULE PO SCH ×2 (09:26→16:27)
[2018-10-26] MEDS: ALBUTEROL SULFATE HFA 90 MCG/PUFF 8 GM INHALER IH PRN (09:26)
[2018-10-26] MEDS: LISINOPRIL 10 MG TABLET PO SCH (09:26)
[2018-10-26] MEDS: GABAPENTIN 300 MG CAPSULE PO SCH ×4 (09:26→20:23)
[2018-10-26] MEDS: FERROUS SULFATE 325 MG EC TABLET PO SCH ×2 (09:26→16:28)
[2018-10-26] MEDS: MONTELUKAST SODIUM 10 MG TABLET PO SCH (09:26)
[2018-10-26] MEDS: FOLIC ACID 1 MG TABLET PO SCH (09:26)
[2018-10-26] MEDS: MULTIVITAMINS WITH MINERALS, THERAPEUTIC TABLET PO SCH (09:26)
[2018-10-26] MEDS: FUROSEMIDE 40 MG TABLET PO SCH (09:26)
[2018-10-26] MEDS: TAMSULOSIN HCL 0.4 MG CAPSULE PO SCH (09:26)
[2018-10-26] MEDS: THIAMINE HCL 100 MG TABLET PO SCH ×2 (09:26→16:28)
[2018-10-26] MEDS: SPIRONOLACTONE 50 MG TABLET PO SCH (09:27)
[2018-10-26] MEDS: CARVEDILOL 6.25 MG TABLET PO SCH ×2 (09:27→16:27)
[2018-10-26] MEDS: ACAMPROSATE CALCIUM 333 MG DR TABLET PO SCH ×3 (09:27→16:27)
[2018-10-26] MEDS: ASPIRIN 81 MG CHEWABLE TABLET PO SCH (09:27)
[2018-10-26] MEDS: PredniSONE 5 MG TABLET PO SCH (09:27)
[2018-10-26] MEDS: LORazepam 2 MG TABLET PO PRN ×2 (09:27→20:23)
[2018-10-26 09:28] VITALS: BP 136/86
[2018-10-26] MEDS: GuaiFENesin/D-METHORPHAN [SUGAR-FREE] 200-20MG/10 ML SYRUP UDCUP PO PRN (09:29)
[2018-10-26] MEDS: DULoxetine HCL 20 MG CAPSULE PO SCH (10:30)
[2018-10-26] MEDS: MAG HYDROX/AL HYDROX/SIMETH ES 30 ML SUSPENSION UDCUP PO PRN (16:32)
[2018-10-26 18:53] VITALS: BP 137/70
[2018-10-26] MEDS: QUEtiapine FUMARATE 200 MG TABLET PO SCH (20:23)
[2018-10-27] MEDS: LORazepam 2 MG TABLET PO PRN ×3 (05:41→16:32)
[2018-10-27] MEDS: GABAPENTIN 300 MG CAPSULE PO SCH ×4 (08:58→20:25)
[2018-10-27] MEDS: FERROUS SULFATE 325 MG EC TABLET PO SCH ×2 (08:58→16:33)
[2018-10-27] MEDS: THIAMINE HCL 100 MG TABLET PO SCH ×2 (08:58→16:30)
[2018-10-27] MEDS: FUROSEMIDE 40 MG TABLET PO SCH (08:58)
[2018-10-27] MEDS: FOLIC ACID 1 MG TABLET PO SCH (08:59)
[2018-10-27] MEDS: CARVEDILOL 6.25 MG TABLET PO SCH ×3 (08:59→16:38)
[2018-10-27] MEDS: MULTIVITAMINS WITH MINERALS, THERAPEUTIC TABLET PO SCH (08:59)
[2018-10-27] MEDS: ACAMPROSATE CALCIUM 333 MG DR TABLET PO SCH ×3 (08:59→16:29)
[2018-10-27 09:00] VITALS: BP 123/89
[2018-10-27] MEDS: LISINOPRIL 10 MG TABLET PO SCH (09:00)
[2018-10-27] MEDS: ASPIRIN 81 MG CHEWABLE TABLET PO SCH (09:00)
[2018-10-27] MEDS: SPIRONOLACTONE 50 MG TABLET PO SCH (09:00)
[2018-10-27] MEDS: TAMSULOSIN HCL 0.4 MG CAPSULE PO SCH (09:00)
[2018-10-27] MEDS: PredniSONE 5 MG TABLET PO SCH (09:00)
[2018-10-27] MEDS: DULoxetine HCL 20 MG CAPSULE PO SCH (09:00)
[2018-10-27] MEDS: GuaiFENesin/D-METHORPHAN [SUGAR-FREE] 200-20MG/10 ML SYRUP UDCUP PO PRN (09:01)
[2018-10-27] MEDS: ACETAMINOPHEN 325 MG TABLET PO PRN (09:02)
[2018-10-27] MEDS: DOXYCYCLINE HYCLATE 100 MG CAPSULE PO SCH ×2 (09:03→16:29)
[2018-10-27] MEDS: MONTELUKAST SODIUM 10 MG TABLET PO SCH (09:03)
[2018-10-27] MEDS: ALBUTEROL SULFATE HFA 90 MCG/PUFF 8 GM INHALER IH PRN (09:38)
[2018-10-27 16:24] VITALS: BP 96/54
[2018-10-27] MEDS: QUEtiapine FUMARATE 200 MG TABLET PO SCH (20:25)
[2018-10-28] MEDS: LORazepam 2 MG TABLET PO PRN ×3 (02:24→21:32)
[2018-10-28 09:40] VITALS: BP 121/72
[2018-10-28] MEDS: LISINOPRIL 10 MG TABLET PO SCH (12:11)
[2018-10-28] MEDS: DULoxetine HCL 20 MG CAPSULE PO SCH (12:11)
[2018-10-28] MEDS: TAMSULOSIN HCL 0.4 MG CAPSULE PO SCH (12:11)
[2018-10-28] MEDS: MULTIVITAMINS WITH MINERALS, THERAPEUTIC TABLET PO SCH (12:12)
[2018-10-28] MEDS: SPIRONOLACTONE 50 MG TABLET PO SCH (12:12)
[2018-10-28] MEDS: FUROSEMIDE 40 MG TABLET PO SCH (12:12)
[2018-10-28] MEDS: ASPIRIN 81 MG CHEWABLE TABLET PO SCH (12:12)
[2018-10-28] MEDS: GABAPENTIN 300 MG CAPSULE PO SCH ×4 (12:12→21:21)
[2018-10-28] MEDS: ACAMPROSATE CALCIUM 333 MG DR TABLET PO SCH ×3 (12:12→16:53)
[2018-10-28] MEDS: FOLIC ACID 1 MG TABLET PO SCH (12:12)
[2018-10-28] MEDS: MONTELUKAST SODIUM 10 MG TABLET PO SCH (12:13)
[2018-10-28] MEDS: DOXYCYCLINE HYCLATE 100 MG CAPSULE PO SCH ×2 (12:13→16:53)
[2018-10-28] MEDS: PredniSONE 5 MG TABLET PO SCH (12:13)
[2018-10-28] MEDS: CARVEDILOL 6.25 MG TABLET PO SCH ×2 (12:13→16:53)
[2018-10-28] MEDS: THIAMINE HCL 100 MG TABLET PO SCH ×2 (12:14→16:52)
[2018-10-28] MEDS: FERROUS SULFATE 325 MG EC TABLET PO SCH ×2 (12:14→16:53)
[2018-10-28] MEDS: ALBUTEROL SULFATE HFA 90 MCG/PUFF 8 GM INHALER IH PRN (16:55)
[2018-10-28] MEDS: QUEtiapine FUMARATE 200 MG TABLET PO SCH (21:21)
[2018-10-29 05:39] VITALS: BP 110/79
[2018-10-29] MEDS: LORazepam 2 MG TABLET PO PRN ×2 (07:02→15:25)
[2018-10-29] MEDS: TAMSULOSIN HCL 0.4 MG CAPSULE PO SCH (08:40)
[2018-10-29] MEDS: DULoxetine HCL 20 MG CAPSULE PO SCH (08:40)
[2018-10-29] MEDS: LISINOPRIL 10 MG TABLET PO SCH (08:40)
[2018-10-29] MEDS: FOLIC ACID 1 MG TABLET PO SCH (08:40)
[2018-10-29] MEDS: ASPIRIN 81 MG CHEWABLE TABLET PO SCH (08:40)
[2018-10-29] MEDS: FERROUS SULFATE 325 MG EC TABLET PO SCH (08:40)
[2018-10-29] MEDS: GABAPENTIN 300 MG CAPSULE PO SCH ×2 (08:40→13:22)
[2018-10-29] MEDS: GuaiFENesin/D-METHORPHAN [SUGAR-FREE] 200-20MG/10 ML SYRUP UDCUP PO PRN (08:40)
[2018-10-29] MEDS: FUROSEMIDE 40 MG TABLET PO SCH (08:40)
[2018-10-29] MEDS: CARVEDILOL 6.25 MG TABLET PO SCH (08:41)
[2018-10-29] MEDS: ACAMPROSATE CALCIUM 333 MG DR TABLET PO SCH ×2 (08:41→13:23)
[2018-10-29] MEDS: DOXYCYCLINE HYCLATE 100 MG CAPSULE PO SCH (08:41)
[2018-10-29] MEDS: MULTIVITAMINS WITH MINERALS, THERAPEUTIC TABLET PO SCH (08:41)
[2018-10-29] MEDS: THIAMINE HCL 100 MG TABLET PO SCH (08:41)
[2018-10-29] MEDS: SPIRONOLACTONE 50 MG TABLET PO SCH (08:41)
[2018-10-29] MEDS: PredniSONE 5 MG TABLET PO SCH (08:42)
[2018-10-29] MEDS: MONTELUKAST SODIUM 10 MG TABLET PO SCH (08:44)
[2018-10-29] MEDS ORDERED: QUET200T29 PO (13:28)
[2018-10-29] MEDS ORDERED: ACAM333T7 PO ×2 (13:28→15:58)
[2018-10-29] MEDS ORDERED: GABA-531 PO ×2 (13:28→16:00)
[2018-10-29] MEDS ORDERED: DULO20CA30 PO ×2 (13:28→15:59)
[2018-10-29] MEDS ORDERED: DOXY100C PO (15:10)
[2018-10-29] MEDS ORDERED: QUET400T PO (15:59)
== END 2018-10-29 17:00 | disposition home or self-care (01) | DRG 750 ==
LOC: EMS 08:55 → 3EI 17:25 → UNDOADMIN 17:30 → 3EI 17:30
PROVIDERS: ADMIT Psychiatry & Neurology Psychiatry; ATTEND Psychiatry & Neurology Psychiatry
DX: F25.0 Schizoaffective disorder, bipolar type (principal); J18.9 Pneumonia, unspecified organism; I11.0 Hypertensive heart disease with heart failure; I48.91 Unspecified atrial fibrillation; I50.9 Heart failure, unspecified; F41.0 Panic disorder [episodic paroxysmal anxiety]; F17.200 Nicotine dependence, unspecified, uncomplicated; E66.9 Obesity, unspecified; B15.9 Hepatitis A without hepatic coma; G47.30 Sleep apnea, unspecified; H40.9 Unspecified glaucoma; F12.90 Cannabis use, unspecified, uncomplicated; J44.0 Chronic obstructive pulmonary disease with (acute) lower respiratory infection; N40.0 Benign prostatic hyperplasia without lower urinary tract symptoms; Z90.81 Acquired absence of spleen; Z68.36 Body mass index [BMI] 36.0-36.9, adult; Z88.0 Allergy status to penicillin; Z88.8 Allergy status to other drugs, medicaments and biological substances; Z65.3 Problems related to other legal circumstances; Z59.9 Problem related to housing and economic circumstances, unspecified
CPT/HCPCS: 84439; 84443; 86592; 87081; G0480; J3535

== ENCOUNTER 2018-11-07 16:12 | Inpatient (IN) | payer MEDICAID, OTHER ==
[~2018-11-07] VITALS: Ht 170.2 cm; Wt 102.5 kg
[~2018-11-07 16:12] MED LIST changes: +DOXY100C PO; +DULO20CA30 PO; +GABA-531 PO; -GABA-533 PO; +QUET400T PO
[2018-11-07 20:16] LABS: BASOPHILS % (AUTO) 0.3 % (0.0-2.0); EOSINOPHILS % (AUTO) 0 % (1.0-6.0); HEMATOCRIT 37.9 % (41-53); HEMOGLOBIN 12.3 g/dL (13.5-17.5); LYMPHOCYTES # (AUTO) 0.7 K/uL (1.0-4.8); LYMPHOCYTES % (AUTO) 12.3 % (22.0-44.0); MEAN CORPUSCULAR HEMOGLOBIN 27.8 pg (26.0-34.0); MEAN CORPUSCULAR HGB CONC 32.4 G/dL (31.0-37.0); MEAN CORPUSCULAR VOLUME 86 fL (80-100); MONOCYTES # (AUTO) 0.2 K/uL (0.1-1.0); NEUTROPHILS # (AUTO) 4.5 K/uL (1.8-7.7); NEUTROPHILS % (AUTO) 84.4 % (40.0-70.0); PLATELET COUNT (AUTO) 294 K/uL (150-450); RED BLOOD CELL COUNT(AUTO) 4.41 MIL/uL (4.50-5.90); RED CELL DISTRIBUTION WIDTH 14.9 % (11.5-14.5)
[2018-11-07 20:16] LABS: APPEARANCE,URINE CLEAR (CLEAR); BILIRUBIN,URINE NEGATIVE (NEGATIVE); GLUCOSE, URINE (UA) NEGATIVE (NEGATIVE); KETONES,URINE 15 mg/dL (NEGATIVE); LEUKOCYTE ESTERASE ,URINE NEGATIVE (NEGATIVE); NITRATE,URINE NEGATIVE (NEGATIVE); OCCULT BLOOD,URINE NEGATIVE (NEGATIVE); PH,URINE 5.5 (5.0-8.0); PROTEIN,URINE TRACE (NEGATIVE)
[2018-11-07 20:21] LABS: AMPHET/METH SCREEN,URINE POSITIVE (NEGATIVE); BARBITURATE SCREEN, URINE NEGATIVE (NEGATIVE); BENZODIAZEPINES SCREEN,URINE NEGATIVE (NEGATIVE); CANNABINOID SCREEN,URINE NEGATIVE (NEGATIVE); COCAINE SCREEN,URINE NEGATIVE (NEGATIVE); METHADONE SCREEN, URINE NEGATIVE (NEGATIVE); OPIATE SCREEN,URINE POSITIVE (NEGATIVE)
[2018-11-07 20:25] LABS: PHENCYCLIDINE SCREEN,URINE NEGATIVE (NEGATIVE)
[2018-11-07 20:34] LABS: ANION GAP 14 mmol/L (8-16); CALCIUM, TOTAL 8.9 mg/dL (8.8-10.5); CARBON DIOXIDE 25 mmol/L (22-29); CHLORIDE 102 mmol/L (98-107); CREATININE 0.78 mg/dL (0.60-1.30); GLOMERULAR FILTR. RATE CALC > 60 mL/min (>60); GLUCOSE,RANDOM 108 mg/dL (70-110); POTASSIUM 4.2 mmol/L (3.5-5.1); SODIUM SERUM 141 mmol/L (136-145); UREA NITROGEN, BLOOD 11 mg/dL (7-18)
[2018-11-07 20:40] LABS: ALANINE AMINOTRANSFERASE 27 U/L (12-78); ALBUMIN 3.6 g/dL (3.4-5.0); ALKALINE PHOSPHATASE 85 U/L (46-116); ASPARTATE AMINOTRANSFERASE 23 U/L (15-37); BILIRUBIN,TOTAL 0.3 mg/dL (0.1-1.0); TOTAL PROTEIN, SERUM 7.4 g/dL (6.4-8.2)
[2018-11-07] MEDS ORDERED: DiphenhydrAMINE HCL 50 MG/ML VIAL IM ONE (20:45)
[2018-11-07] MEDS ORDERED: LORazepam 2 MG/ML VIAL IM ONE (20:45)
[2018-11-07] MEDS ORDERED: FluPHENAZine HCL 2.5 MG/ML INJ IM ONE (20:45)
[2018-11-07] MEDS ORDERED: DiphenhydrAMINE HCL 25 MG CAPSULE PO ONE (21:15)
[2018-11-07] MEDS ORDERED: LORazepam 2 MG TABLET PO ONE (21:15)
[2018-11-07] MEDS ORDERED: QUEtiapine FUMARATE 100 MG TABLET PO PRN (21:45)
[2018-11-08] MEDS: LORazepam 2 MG TABLET PO PRN (08:09)
[2018-11-08] MEDS ORDERED: LOPERAMIDE HCL 2 MG CAPSULE PO PRN (10:45)
[2018-11-08] MEDS ORDERED: HydrOXYzine PAMOATE 50 MG CAPSULE PO PRN (10:45)
[2018-11-08] MEDS ORDERED: MAG HYDROX/AL HYDROX/SIMETH ES 30 ML SUSPENSION UDCUP PO PRN (10:45)
[2018-11-08] MEDS ORDERED: GuaiFENesin/D-METHORPHAN [SUGAR-FREE] 200-20MG/10 ML SYRUP UDCUP PO PRN (10:45)
[2018-11-08] MEDS ORDERED: PROMETHAZINE HCL 25 MG TABLET PO PRN (10:45)
[2018-11-08] MEDS ORDERED: PALIPERIDONE PALMITATE 234 MG/1.5 ML SYRINGE IM ONE (10:45)
[2018-11-08] MEDS ORDERED: MAGNESIUM HYDROXIDE SUSPENSION 30 ML UDCUP PO PRN (10:45)
[2018-11-08] MEDS ORDERED: ACETAMINOPHEN 325 MG TABLET PO PRN (10:45)
[2018-11-08] MEDS: GABAPENTIN 300 MG CAPSULE PO SCH ×3 (12:03→22:14)
[2018-11-08 13:30] VITALS: BP 140/85
[2018-11-08 14:15] VITALS: BP 112/63
[2018-11-08] MEDS: ACAMPROSATE CALCIUM 333 MG DR TABLET PO SCH ×2 (15:16→17:00)
[2018-11-08] MEDS: THIAMINE HCL 100 MG TABLET PO SCH (17:00)
[2018-11-08] MEDS ORDERED: FluPHENAZine HCL 2.5 MG/ML INJ IM ONE (17:15)
[2018-11-08] MEDS ORDERED: LORazepam 2 MG/ML VIAL IM ONE (17:15)
[2018-11-08] MEDS ORDERED: DiphenhydrAMINE HCL 50 MG/ML VIAL IM ONE (17:15)
[2018-11-08] MEDS: FERROUS SULFATE 325 MG EC TABLET PO SCH (17:30)
[2018-11-08] MEDS ORDERED: QUEtiapine FUMARATE 200 MG TABLET PO SCH (21:00)
[2018-11-08 22:09] VITALS: BP 114/75
[2018-11-08] MEDS: ZOLPIDEM TARTRATE 10 MG TABLET PO PRN (22:12)
[2018-11-08] MEDS: PALIPERIDONE 6 MG ER TABLET PO SCH (22:15)
[2018-11-09] MEDS: LORazepam 2 MG TABLET PO PRN ×4 (02:27→20:09)
[2018-11-09] MEDS: FERROUS SULFATE 325 MG EC TABLET PO SCH ×2 (06:56→16:13)
[2018-11-09] MEDS ORDERED: PALIPERIDONE PALMITATE 234 MG/1.5 ML SYRINGE IM ONE (08:00)
[2018-11-09] MEDS: SPIRONOLACTONE 25 MG TABLET PO SCH (10:33)
[2018-11-09] MEDS: ACAMPROSATE CALCIUM 333 MG DR TABLET PO SCH ×3 (10:34→16:13)
[2018-11-09] MEDS: ASPIRIN 81 MG CHEWABLE TABLET PO SCH (10:34)
[2018-11-09] MEDS: TAMSULOSIN HCL 0.4 MG CAPSULE PO SCH (10:35)
[2018-11-09] MEDS: FOLIC ACID 1 MG TABLET PO SCH (10:35)
[2018-11-09] MEDS: DULoxetine HCL 20 MG CAPSULE PO SCH (10:35)
[2018-11-09] MEDS: CARVEDILOL 6.25 MG TABLET PO SCH (10:35)
[2018-11-09] MEDS: FUROSEMIDE 40 MG TABLET PO SCH (10:36)
[2018-11-09] MEDS: MULTIVITAMINS WITH MINERALS, THERAPEUTIC TABLET PO SCH (10:38)
[2018-11-09] MEDS: THIAMINE HCL 100 MG TABLET PO SCH ×2 (10:38→16:13)
[2018-11-09] MEDS: GABAPENTIN 300 MG CAPSULE PO SCH ×4 (10:38→20:23)
[2018-11-09] MEDS: MONTELUKAST SODIUM 10 MG TABLET PO SCH (10:38)
[2018-11-09] MEDS: LISINOPRIL 10 MG TABLET PO SCH (10:39)
[2018-11-09 10:49] VITALS: BP 156/90
[2018-11-09] MEDS: PALIPERIDONE 6 MG ER TABLET PO SCH (20:23)
[2018-11-10] MEDS: ZOLPIDEM TARTRATE 10 MG TABLET PO PRN (01:42)
[2018-11-10] MEDS: LORazepam 2 MG TABLET PO PRN (01:42)
[2018-11-10 02:34] VITALS: BP 119/87
[2018-11-10] MEDS: FERROUS SULFATE 325 MG EC TABLET PO SCH ×2 (06:49→17:22)
[2018-11-10 08:33] VITALS: BP 115/61
[2018-11-10] MEDS: TAMSULOSIN HCL 0.4 MG CAPSULE PO SCH (08:41)
[2018-11-10] MEDS: MULTIVITAMINS WITH MINERALS, THERAPEUTIC TABLET PO SCH (08:41)
[2018-11-10] MEDS: GABAPENTIN 300 MG CAPSULE PO SCH ×4 (08:41→22:24)
[2018-11-10] MEDS: DULoxetine HCL 20 MG CAPSULE PO SCH (08:42)
[2018-11-10] MEDS: SPIRONOLACTONE 25 MG TABLET PO SCH (08:42)
[2018-11-10] MEDS: ACAMPROSATE CALCIUM 333 MG DR TABLET PO SCH ×3 (08:42→17:22)
[2018-11-10] MEDS: THIAMINE HCL 100 MG TABLET PO SCH ×2 (08:42→17:22)
[2018-11-10] MEDS: LISINOPRIL 10 MG TABLET PO SCH (08:42)
[2018-11-10] MEDS: CARVEDILOL 6.25 MG TABLET PO SCH (08:42)
[2018-11-10] MEDS: ASPIRIN 81 MG CHEWABLE TABLET PO SCH (08:42)
[2018-11-10] MEDS: FOLIC ACID 1 MG TABLET PO SCH (08:42)
[2018-11-10] MEDS: MONTELUKAST SODIUM 10 MG TABLET PO SCH (08:43)
[2018-11-10] MEDS: FUROSEMIDE 40 MG TABLET PO SCH (08:43)
[2018-11-10 16:58] VITALS: BP 119/82
[2018-11-10] MEDS: PALIPERIDONE 6 MG ER TABLET PO SCH (22:24)
[2018-11-11] MEDS: ALBUTEROL SULFATE HFA 90 MCG/PUFF 8 GM INHALER IH PRN ×2 (04:02→19:39)
[2018-11-11] MEDS: FERROUS SULFATE 325 MG EC TABLET PO SCH ×2 (06:49→17:08)
[2018-11-11] MEDS: LORazepam 2 MG TABLET PO PRN (07:40)
[2018-11-11] MEDS: GABAPENTIN 300 MG CAPSULE PO SCH ×4 (07:40→20:06)
[2018-11-11] MEDS: FOLIC ACID 1 MG TABLET PO SCH (07:40)
[2018-11-11] MEDS: LISINOPRIL 10 MG TABLET PO SCH (07:40)
[2018-11-11] MEDS: ACAMPROSATE CALCIUM 333 MG DR TABLET PO SCH ×3 (07:40→17:08)
[2018-11-11] MEDS: ASPIRIN 81 MG CHEWABLE TABLET PO SCH (07:40)
[2018-11-11] MEDS: TAMSULOSIN HCL 0.4 MG CAPSULE PO SCH (07:40)
[2018-11-11] MEDS: DULoxetine HCL 20 MG CAPSULE PO SCH (07:40)
[2018-11-11] MEDS: THIAMINE HCL 100 MG TABLET PO SCH ×2 (07:40→17:08)
[2018-11-11] MEDS: MULTIVITAMINS WITH MINERALS, THERAPEUTIC TABLET PO SCH (07:40)
[2018-11-11] MEDS: CARVEDILOL 6.25 MG TABLET PO SCH (07:41)
[2018-11-11] MEDS: MONTELUKAST SODIUM 10 MG TABLET PO SCH (07:41)
[2018-11-11] MEDS: FUROSEMIDE 40 MG TABLET PO SCH (07:41)
[2018-11-11] MEDS: SPIRONOLACTONE 25 MG TABLET PO SCH (07:41)
[2018-11-11] MEDS: PALIPERIDONE 1.5 MG ER TABLET PO PRN (07:42)
[2018-11-11] MEDS: IBUPROFEN 600 MG TABLET PO PRN (08:26)
[2018-11-11 08:30] VITALS: BP 123/95
[2018-11-11 16:45] VITALS: BP 120/88
[2018-11-11] MEDS ORDERED: ACAM333T7 PO (17:46)
[2018-11-11] MEDS ORDERED: PALI117D IM (17:46)
[2018-11-11] MEDS ORDERED: GABA-531 PO (17:46)
[2018-11-11] MEDS ORDERED: DULO20CA30 PO (17:46)
[2018-11-12] MEDS: ZOLPIDEM TARTRATE 10 MG TABLET PO PRN (00:06)
[2018-11-12] MEDS: IBUPROFEN 600 MG TABLET PO PRN (00:07)
[2018-11-12 00:09] VITALS: BP 106/74
[2018-11-12] MEDS: LORazepam 2 MG TABLET PO PRN ×2 (03:04→09:06)
[2018-11-12 03:05] VITALS: BP 117/72
[2018-11-12] MEDS ORDERED: PNEUMOCOCCAL VACCINE POLYVALENT 0.5 ML VIAL [PPSV23] IM ONE (06:30)
[2018-11-12] MEDS: FERROUS SULFATE 325 MG EC TABLET PO SCH (06:46)
[2018-11-12] MEDS ORDERED: PALIPERIDONE PALMITATE 156 MG/ML SYRINGE IM ONE (09:00)
[2018-11-12] MEDS: TAMSULOSIN HCL 0.4 MG CAPSULE PO SCH (09:05)
[2018-11-12] MEDS: PALIPERIDONE 1.5 MG ER TABLET PO PRN (09:05)
[2018-11-12] MEDS: MULTIVITAMINS WITH MINERALS, THERAPEUTIC TABLET PO SCH (09:05)
[2018-11-12] MEDS: FOLIC ACID 1 MG TABLET PO SCH (09:06)
[2018-11-12] MEDS: LISINOPRIL 10 MG TABLET PO SCH (09:06)
[2018-11-12] MEDS: DULoxetine HCL 20 MG CAPSULE PO SCH (09:06)
[2018-11-12] MEDS: GABAPENTIN 300 MG CAPSULE PO SCH ×2 (09:06→12:13)
[2018-11-12] MEDS: ASPIRIN 81 MG CHEWABLE TABLET PO SCH (09:06)
[2018-11-12] MEDS: THIAMINE HCL 100 MG TABLET PO SCH (09:06)
[2018-11-12] MEDS: MONTELUKAST SODIUM 10 MG TABLET PO SCH (09:07)
[2018-11-12] MEDS: ACAMPROSATE CALCIUM 333 MG DR TABLET PO SCH ×2 (09:07→12:13)
[2018-11-12] MEDS: CARVEDILOL 6.25 MG TABLET PO SCH (09:07)
[2018-11-12] MEDS: SPIRONOLACTONE 25 MG TABLET PO SCH (09:07)
[2018-11-12] MEDS: FUROSEMIDE 40 MG TABLET PO SCH (09:07)
[2018-11-12 09:20] VITALS: BP 145/97
[2018-11-12] MEDS ORDERED: MULT-1239 PO (10:23)
[2018-11-12] MEDS ORDERED: FOLI1 PO (10:23)
[2018-11-12] MEDS ORDERED: THIA100T67 PO (10:23)
[2018-11-12] MEDS ORDERED: FERR-89 PO (10:29)
[2018-11-13] MEDS ORDERED: PALIPERIDONE PALMITATE 156 MG/ML SYRINGE IM ONE (09:00)
[2018-12-09] MEDS ORDERED: PALIPERIDONE PALMITATE 117 MG/0.75 ML SYRINGE IM SCH (09:00)
== END 2018-11-12 13:00 | disposition home or self-care (01) | DRG 750 ==
LOC: EMS 16:12 → AHU 11-08 11:45 → 3EC 11-08 12:21 → 3EI 11-08 14:07 → 3EC 11-08 19:15
PROVIDERS: ADMIT Psychiatry & Neurology Psychiatry; ATTEND Psychiatry & Neurology Psychiatry
DX: F20.0 Paranoid schizophrenia (principal); G62.9 Polyneuropathy, unspecified; I11.0 Hypertensive heart disease with heart failure; I50.9 Heart failure, unspecified; R45.851 Suicidal ideations; I48.91 Unspecified atrial fibrillation; F12.90 Cannabis use, unspecified, uncomplicated; F15.10 Other stimulant abuse, uncomplicated; F17.210 Nicotine dependence, cigarettes, uncomplicated; F41.9 Anxiety disorder, unspecified; I25.119 Atherosclerotic heart disease of native coronary artery with unspecified angina pectoris; H40.9 Unspecified glaucoma; G47.30 Sleep apnea, unspecified; N40.0 Benign prostatic hyperplasia without lower urinary tract symptoms; G89.29 Other chronic pain; F32.9 Major depressive disorder, single episode, unspecified; J44.9 Chronic obstructive pulmonary disease, unspecified; Z91.14 Patient's other noncompliance with medication regimen; Z90.81 Acquired absence of spleen; Z79.899 Other long term (current) drug therapy; Z87.01 Personal history of pneumonia (recurrent); Z59.0 Homelessness; Z88.0 Allergy status to penicillin; Z88.8 Allergy status to other drugs, medicaments and biological substances; Z91.5 Personal history of self-harm
CPT/HCPCS: 87081; G0480; J1200; J2060; J3490; J3535

== ENCOUNTER 2018-12-02 14:24 | Emergency (ER) | payer MEDICAID ==
[~2018-12-02] VITALS: Ht 170.2 cm; Wt 100.0 kg
[~2018-12-02 14:24] MED LIST changes: -DOXY100C PO; +FOLI1 PO; +MULT-1239 PO; +PALI117D IM; -PRED5 PO; -QUET200T29 PO; -QUET400T PO; +THIA100T67 PO
[2018-12-02 14:39] VITALS: BP 125/103
== END 2018-12-02 17:00 | disposition left against medical advice (07) ==
LOC: EMS 14:27
DX: Z76.0 Encounter for issue of repeat prescription (principal); Z53.21 Procedure and treatment not carried out due to patient leaving prior to being seen by health care provider

== ENCOUNTER 2018-12-16 12:22 | Inpatient (IN) | payer MEDICAID, OTHER ==
[~2018-12-16] VITALS: Ht 170.2 cm; Wt 101.0 kg
[2018-12-16 14:21] LABS: BASOPHILS % (AUTO) 0.3 % (0.0-2.0); EOSINOPHILS % (AUTO) 5.2 % (1.0-6.0); HEMATOCRIT 40.8 % (41-53); HEMOGLOBIN 13.1 g/dL (13.5-17.5); LYMPHOCYTES # (AUTO) 1.2 K/uL (1.0-4.8); LYMPHOCYTES % (AUTO) 16.9 % (22.0-44.0); MEAN CORPUSCULAR HEMOGLOBIN 27.4 pg (26.0-34.0); MEAN CORPUSCULAR HGB CONC 32.1 G/dL (31.0-37.0); MEAN CORPUSCULAR VOLUME 85 fL (80-100); MONOCYTES # (AUTO) 0.8 K/uL (0.1-1.0); MONOCYTES % (AUTO) 10.9 % (2.0-9.0); NEUTROPHILS # (AUTO) 4.7 K/uL (1.8-7.7); NEUTROPHILS % (AUTO) 66.7 % (40.0-70.0); PLATELET COUNT (AUTO) 382 K/uL (150-450); RED BLOOD CELL COUNT(AUTO) 4.79 MIL/uL (4.50-5.90); RED CELL DISTRIBUTION WIDTH 15.2 % (11.5-14.5)
[2018-12-16 15:00] LABS: AMPHET/METH SCREEN,URINE NEGATIVE (NEGATIVE); BARBITURATE SCREEN, URINE NEGATIVE (NEGATIVE); BENZODIAZEPINES SCREEN,URINE POSITIVE (NEGATIVE); CANNABINOID SCREEN,URINE NEGATIVE (NEGATIVE); COCAINE SCREEN,URINE NEGATIVE (NEGATIVE); METHADONE SCREEN, URINE NEGATIVE (NEGATIVE); OPIATE SCREEN,URINE NEGATIVE (NEGATIVE)
[2018-12-16 15:12] LABS: PHENCYCLIDINE SCREEN,URINE NEGATIVE (NEGATIVE)
[2018-12-16 15:19] LABS: ALANINE AMINOTRANSFERASE 30 U/L (12-78); ALBUMIN 3.4 g/dL (3.4-5.0); ALKALINE PHOSPHATASE 127 U/L (46-116); ANION GAP 4 mmol/L (8-16); ASPARTATE AMINOTRANSFERASE 17 U/L (15-37); BILIRUBIN,TOTAL 0.2 mg/dL (0.1-1.0); CALCIUM, TOTAL 10.5 mg/dL (8.8-10.5); CARBON DIOXIDE 36 mmol/L (22-29); CHLORIDE 92 mmol/L (98-107); CREATININE 1.19 mg/dL (0.60-1.30); GLOMERULAR FILTR. RATE CALC > 60 mL/min (>60); GLUCOSE,RANDOM 102 mg/dL (70-110); POTASSIUM 4.6 mmol/L (3.5-5.1); SODIUM SERUM 132 mmol/L (136-145); TOTAL PROTEIN, SERUM 8.5 g/dL (6.4-8.2); UREA NITROGEN, BLOOD 21 mg/dL (7-18)
[2018-12-16] MEDS ORDERED: DOCUSATE SODIUM 100 MG CAPSULE PO PRN (17:30)
[2018-12-16] MEDS ORDERED: ONDANSETRON HCL 4 MG TABLET PO PRN (17:30)
[2018-12-16] MEDS ORDERED: IBUPROFEN 400 MG TABLET PO PRN (17:30)
[2018-12-16] MEDS ORDERED: MAG HYDROX/AL HYDROX/SIMETH ES 30 ML SUSPENSION UDCUP PO PRN (17:30)
[2018-12-16] MEDS ORDERED: CloNIDine HCL 0.1 MG TABLET PO PRN (17:30)
[2018-12-16] MEDS ORDERED: MAGNESIUM HYDROXIDE SUSPENSION 30 ML UDCUP PO PRN (17:30)
[2018-12-16] MEDS ORDERED: GuaiFENesin/D-METHORPHAN [SUGAR-FREE] 200-20MG/10 ML SYRUP UDCUP PO PRN (17:30)
[2018-12-16] MEDS ORDERED: PETROLATUM,WHITE 28 GM JELLY TP PRN (17:30)
[2018-12-16] MEDS ORDERED: NICOTINE 14 MG/24 HOUR PATCH TD PRN (17:30)
[2018-12-16] MEDS: LORazepam 2 MG TABLET PO PRN (17:53)
[2018-12-16] MEDS: QUEtiapine FUMARATE 100 MG TABLET PO PRN (17:54)
[2018-12-16 18:55] VITALS: BP 126/86
[2018-12-16] MEDS: THIAMINE HCL 100 MG TABLET PO SCH (19:19)
[2018-12-16] MEDS: GABAPENTIN 300 MG CAPSULE PO SCH (22:17)
[2018-12-17 01:08] VITALS: BP 108/67
[2018-12-17] MEDS: ZOLPIDEM TARTRATE 10 MG TABLET PO PRN (01:11)
[2018-12-17] MEDS: LORazepam 2 MG TABLET PO PRN ×4 (01:12→18:57)
[2018-12-17] MEDS: FERROUS SULFATE 325 MG EC TABLET PO SCH ×2 (06:44→16:38)
[2018-12-17 06:48] LABS: BASOPHILS % (AUTO) 0.8 % (0.0-2.0); EOSINOPHILS % (AUTO) 3.6 % (1.0-6.0); HEMATOCRIT 41.5 % (41-53); HEMOGLOBIN 13.3 g/dL (13.5-17.5); LYMPHOCYTES # (AUTO) 1.5 K/uL (1.0-4.8); LYMPHOCYTES % (AUTO) 16.4 % (22.0-44.0); MEAN CORPUSCULAR HEMOGLOBIN 27.3 pg (26.0-34.0); MEAN CORPUSCULAR VOLUME 85 fL (80-100); MONOCYTES % (AUTO) 11.5 % (2.0-9.0); NEUTROPHILS % (AUTO) 67.7 % (40.0-70.0); PLATELET COUNT (AUTO) 389 K/uL (150-450); RED BLOOD CELL COUNT(AUTO) 4.86 MIL/uL (4.50-5.90); RED CELL DISTRIBUTION WIDTH 14.8 % (11.5-14.5)
[2018-12-17 07:11] LABS: HEMOGLOBIN A1C 6.2 % (4.5-6.2)
[2018-12-17 07:33] LABS: ALANINE AMINOTRANSFERASE 28 U/L (12-78); ALBUMIN 3.1 g/dL (3.4-5.0); ALKALINE PHOSPHATASE 119 U/L (46-116); ANION GAP 4 mmol/L (8-16); ASPARTATE AMINOTRANSFERASE 17 U/L (15-37); BILIRUBIN,TOTAL 0.1 mg/dL (0.1-1.0); CALCIUM, TOTAL 9.3 mg/dL (8.8-10.5); CARBON DIOXIDE 32 mmol/L (22-29); CHLORIDE 95 mmol/L (98-107); CHOL/HDL RATIO 6.6 (4.2-7.3); CHOLESTEROL 165 mg/dL (131-200); CREATININE 1.07 mg/dL (0.60-1.30); FREE T4 (FREE THYROXINE) 0.91 ng/dL (0.76-1.46); GLOMERULAR FILTR. RATE CALC > 60 mL/min (>60); GLUCOSE,RANDOM 90 mg/dL (70-110); HDL CHOLESTEROL 25 mg/dL (40-60); LDL CHOL (CALC.) 131 mg/dL (0-130); POTASSIUM 4.4 mmol/L (3.5-5.1); SODIUM SERUM 131 mmol/L (136-145); THYROID STIMULATING HORMONE 1.36 uIU/mL (0.36-3.74); TOTAL PROTEIN, SERUM 7.5 g/dL (6.4-8.2); TRIGLYCERIDES 45 mg/dL (15-150); UREA NITROGEN, BLOOD 25 mg/dL (7-18)
[2018-12-17 08:26] VITALS: BP 114/69
[2018-12-17] MEDS: LISINOPRIL 10 MG TABLET PO SCH (08:48)
[2018-12-17] MEDS: TAMSULOSIN HCL 0.4 MG CAPSULE PO SCH (08:48)
[2018-12-17] MEDS: MONTELUKAST SODIUM 10 MG TABLET PO SCH (08:49)
[2018-12-17] MEDS: FUROSEMIDE 40 MG TABLET PO SCH (08:49)
[2018-12-17] MEDS: ASPIRIN 81 MG CHEWABLE TABLET PO SCH (08:49)
[2018-12-17] MEDS: THIAMINE HCL 100 MG TABLET PO SCH ×2 (08:49→16:38)
[2018-12-17] MEDS: QUEtiapine FUMARATE 100 MG TABLET PO PRN ×2 (08:49→18:57)
[2018-12-17] MEDS: CARVEDILOL 6.25 MG TABLET PO SCH (08:49)
[2018-12-17] MEDS: SPIRONOLACTONE 25 MG TABLET PO SCH (08:49)
[2018-12-17] MEDS: GABAPENTIN 300 MG CAPSULE PO SCH ×4 (08:49→20:34)
[2018-12-17] MEDS: MULTIVITAMINS WITH MINERALS, THERAPEUTIC TABLET PO SCH (08:49)
[2018-12-17] MEDS: FOLIC ACID 1 MG TABLET PO SCH (08:50)
[2018-12-17] MEDS: DULoxetine HCL 20 MG CAPSULE PO SCH (10:37)
[2018-12-18 04:55] VITALS: BP 125/75
[2018-12-18] MEDS: QUEtiapine FUMARATE 100 MG TABLET PO PRN ×2 (04:59→16:24)
[2018-12-18] MEDS: LORazepam 2 MG TABLET PO PRN ×4 (04:59→22:11)
[2018-12-18] MEDS: FERROUS SULFATE 325 MG EC TABLET PO SCH ×2 (06:41→16:23)
[2018-12-18 08:10] VITALS: BP 135/69
[2018-12-18] MEDS: TAMSULOSIN HCL 0.4 MG CAPSULE PO SCH (08:27)
[2018-12-18] MEDS: LISINOPRIL 10 MG TABLET PO SCH (08:27)
[2018-12-18] MEDS: CARVEDILOL 6.25 MG TABLET PO SCH (08:27)
[2018-12-18] MEDS: DULoxetine HCL 20 MG CAPSULE PO SCH (08:27)
[2018-12-18] MEDS: ASPIRIN 81 MG CHEWABLE TABLET PO SCH (08:28)
[2018-12-18] MEDS: MULTIVITAMINS WITH MINERALS, THERAPEUTIC TABLET PO SCH (08:28)
[2018-12-18] MEDS: THIAMINE HCL 100 MG TABLET PO SCH ×2 (08:28→16:24)
[2018-12-18] MEDS: FOLIC ACID 1 MG TABLET PO SCH (08:28)
[2018-12-18] MEDS: FUROSEMIDE 40 MG TABLET PO SCH (08:28)
[2018-12-18] MEDS: GABAPENTIN 300 MG CAPSULE PO SCH ×4 (08:28→21:44)
[2018-12-18] MEDS: MONTELUKAST SODIUM 10 MG TABLET PO SCH (08:28)
[2018-12-18] MEDS: SPIRONOLACTONE 25 MG TABLET PO SCH (08:28)
[2018-12-19] MEDS: FERROUS SULFATE 325 MG EC TABLET PO SCH ×2 (07:10→18:05)
[2018-12-19] MEDS: MONTELUKAST SODIUM 10 MG TABLET PO SCH (08:30)
[2018-12-19] MEDS: FUROSEMIDE 40 MG TABLET PO SCH (08:30)
[2018-12-19] MEDS: SPIRONOLACTONE 25 MG TABLET PO SCH (08:30)
[2018-12-19] MEDS: CARVEDILOL 6.25 MG TABLET PO SCH (08:30)
[2018-12-19] MEDS: LORazepam 2 MG TABLET PO PRN ×3 (08:32→20:11)
[2018-12-19] MEDS: ASPIRIN 81 MG CHEWABLE TABLET PO SCH (08:33)
[2018-12-19] MEDS: FOLIC ACID 1 MG TABLET PO SCH (08:33)
[2018-12-19] MEDS: GABAPENTIN 300 MG CAPSULE PO SCH ×4 (08:33→21:31)
[2018-12-19] MEDS: LISINOPRIL 10 MG TABLET PO SCH (08:34)
[2018-12-19] MEDS: TAMSULOSIN HCL 0.4 MG CAPSULE PO SCH (08:34)
[2018-12-19] MEDS: DULoxetine HCL 20 MG CAPSULE PO SCH (08:34)
[2018-12-19] MEDS: THIAMINE HCL 100 MG TABLET PO SCH ×2 (08:34→18:05)
[2018-12-19] MEDS: MULTIVITAMINS WITH MINERALS, THERAPEUTIC TABLET PO SCH (08:34)
[2018-12-19 12:16] VITALS: BP 129/98
[2018-12-19] MEDS: QUEtiapine FUMARATE 100 MG TABLET PO PRN ×2 (14:09→20:11)
[2018-12-19 19:11] VITALS: BP 130/95
[2018-12-20] MEDS: LORazepam 2 MG TABLET PO PRN ×3 (05:49→18:16)
[2018-12-20] MEDS: ACETAMINOPHEN 325 MG TABLET PO PRN (05:49)
[2018-12-20] MEDS: FERROUS SULFATE 325 MG EC TABLET PO SCH ×2 (06:41→17:35)
[2018-12-20 08:15] VITALS: BP 113/72
[2018-12-20] MEDS: MULTIVITAMINS WITH MINERALS, THERAPEUTIC TABLET PO SCH (09:05)
[2018-12-20] MEDS: GABAPENTIN 300 MG CAPSULE PO SCH ×4 (09:05→21:34)
[2018-12-20] MEDS: FOLIC ACID 1 MG TABLET PO SCH (09:05)
[2018-12-20] MEDS: TAMSULOSIN HCL 0.4 MG CAPSULE PO SCH (09:05)
[2018-12-20] MEDS: SPIRONOLACTONE 25 MG TABLET PO SCH (09:05)
[2018-12-20] MEDS: MONTELUKAST SODIUM 10 MG TABLET PO SCH (09:05)
[2018-12-20] MEDS: THIAMINE HCL 100 MG TABLET PO SCH ×2 (09:05→17:35)
[2018-12-20] MEDS: CARVEDILOL 6.25 MG TABLET PO SCH (09:05)
[2018-12-20] MEDS: DULoxetine HCL 20 MG CAPSULE PO SCH (09:05)
[2018-12-20] MEDS: LISINOPRIL 10 MG TABLET PO SCH (09:05)
[2018-12-20] MEDS: ASPIRIN 81 MG CHEWABLE TABLET PO SCH (09:05)
[2018-12-20] MEDS: FUROSEMIDE 40 MG TABLET PO SCH (09:05)
[2018-12-20] MEDS: QUEtiapine FUMARATE 100 MG TABLET PO PRN ×2 (12:46→18:16)
[2018-12-20 17:53] VITALS: BP 118/81
[2018-12-20] MEDS: ALBUTEROL SULFATE HFA 90 MCG/PUFF 8 GM INHALER IH PRN (18:17)
[2018-12-20] MEDS: ZOLPIDEM TARTRATE 10 MG TABLET PO PRN (21:58)
[2018-12-21] MEDS: LORazepam 2 MG TABLET PO PRN ×2 (00:45→08:08)
[2018-12-21] MEDS: QUEtiapine FUMARATE 100 MG TABLET PO PRN ×2 (00:45→08:08)
[2018-12-21] MEDS: FERROUS SULFATE 325 MG EC TABLET PO SCH ×2 (06:37→18:42)
[2018-12-21] MEDS: DULoxetine HCL 20 MG CAPSULE PO SCH (08:05)
[2018-12-21] MEDS: LISINOPRIL 10 MG TABLET PO SCH (08:05)
[2018-12-21] MEDS: GABAPENTIN 300 MG CAPSULE PO SCH ×4 (08:06→20:33)
[2018-12-21] MEDS: SPIRONOLACTONE 25 MG TABLET PO SCH (08:06)
[2018-12-21] MEDS: TAMSULOSIN HCL 0.4 MG CAPSULE PO SCH (08:06)
[2018-12-21] MEDS: MULTIVITAMINS WITH MINERALS, THERAPEUTIC TABLET PO SCH (08:06)
[2018-12-21] MEDS: ASPIRIN 81 MG CHEWABLE TABLET PO SCH (08:06)
[2018-12-21] MEDS: FOLIC ACID 1 MG TABLET PO SCH (08:06)
[2018-12-21] MEDS: THIAMINE HCL 100 MG TABLET PO SCH ×2 (08:06→17:04)
[2018-12-21] MEDS: CARVEDILOL 6.25 MG TABLET PO SCH (08:06)
[2018-12-21] MEDS: MONTELUKAST SODIUM 10 MG TABLET PO SCH (08:07)
[2018-12-21] MEDS: FUROSEMIDE 40 MG TABLET PO SCH (08:07)
[2018-12-21 09:23] VITALS: BP 135/78
[2018-12-21] MEDS: ZOLPIDEM TARTRATE 10 MG TABLET PO PRN (21:15)
[2018-12-22] MEDS: LORazepam 2 MG TABLET PO PRN ×3 (02:43→12:10)
[2018-12-22] MEDS: QUEtiapine FUMARATE 100 MG TABLET PO PRN ×2 (02:43→12:05)
[2018-12-22] MEDS: FERROUS SULFATE 325 MG EC TABLET PO SCH ×2 (06:36→18:24)
[2018-12-22 08:00] VITALS: BP 127/88
[2018-12-22] MEDS: ACETAMINOPHEN 325 MG TABLET PO PRN (08:09)
[2018-12-22] MEDS: ASPIRIN 81 MG CHEWABLE TABLET PO SCH (08:10)
[2018-12-22] MEDS: LISINOPRIL 10 MG TABLET PO SCH (08:10)
[2018-12-22] MEDS: TAMSULOSIN HCL 0.4 MG CAPSULE PO SCH (08:10)
[2018-12-22] MEDS: FOLIC ACID 1 MG TABLET PO SCH (08:10)
[2018-12-22] MEDS: THIAMINE HCL 100 MG TABLET PO SCH ×2 (08:10→18:24)
[2018-12-22] MEDS: MULTIVITAMINS WITH MINERALS, THERAPEUTIC TABLET PO SCH (08:10)
[2018-12-22] MEDS: GABAPENTIN 300 MG CAPSULE PO SCH ×4 (08:10→21:34)
[2018-12-22] MEDS: CARVEDILOL 6.25 MG TABLET PO SCH (08:11)
[2018-12-22] MEDS: SPIRONOLACTONE 25 MG TABLET PO SCH (08:11)
[2018-12-22] MEDS: DULoxetine HCL 20 MG CAPSULE PO SCH (08:11)
[2018-12-22] MEDS: FUROSEMIDE 40 MG TABLET PO SCH (08:11)
[2018-12-22] MEDS: MONTELUKAST SODIUM 10 MG TABLET PO SCH (08:11)
[2018-12-22] MEDS: ALBUTEROL SULFATE HFA 90 MCG/PUFF 8 GM INHALER IH PRN (08:12)
[2018-12-22] MEDS: LOPERAMIDE HCL 2 MG CAPSULE PO PRN (14:48)
[2018-12-22 16:53] VITALS: BP 118/73
[2018-12-23] MEDS: LORazepam 2 MG TABLET PO PRN ×3 (00:31→17:11)
[2018-12-23] MEDS: ZOLPIDEM TARTRATE 10 MG TABLET PO PRN ×2 (00:32→20:31)
[2018-12-23] MEDS: FERROUS SULFATE 325 MG EC TABLET PO SCH ×2 (06:47→17:09)
[2018-12-23] MEDS: QUEtiapine FUMARATE 100 MG TABLET PO PRN ×2 (08:34→17:11)
[2018-12-23] MEDS: DULoxetine HCL 20 MG CAPSULE PO SCH (08:34)
[2018-12-23] MEDS: LISINOPRIL 10 MG TABLET PO SCH (08:34)
[2018-12-23] MEDS: MULTIVITAMINS WITH MINERALS, THERAPEUTIC TABLET PO SCH (08:34)
[2018-12-23] MEDS: GABAPENTIN 300 MG CAPSULE PO SCH ×4 (08:34→20:11)
[2018-12-23] MEDS: TAMSULOSIN HCL 0.4 MG CAPSULE PO SCH (08:34)
[2018-12-23] MEDS: FOLIC ACID 1 MG TABLET PO SCH (08:34)
[2018-12-23] MEDS: ASPIRIN 81 MG CHEWABLE TABLET PO SCH (08:34)
[2018-12-23] MEDS: THIAMINE HCL 100 MG TABLET PO SCH ×2 (08:34→17:09)
[2018-12-23] MEDS: SPIRONOLACTONE 25 MG TABLET PO SCH (08:35)
[2018-12-23] MEDS: CARVEDILOL 6.25 MG TABLET PO SCH (08:35)
[2018-12-23] MEDS: MONTELUKAST SODIUM 10 MG TABLET PO SCH (08:35)
[2018-12-23] MEDS: FUROSEMIDE 40 MG TABLET PO SCH (08:35)
[2018-12-23 09:54] VITALS: BP 112/75
[2018-12-23] MEDS: LOPERAMIDE HCL 2 MG CAPSULE PO PRN (14:03)
[2018-12-23 16:30] VITALS: BP 121/67
[2018-12-24] MEDS: QUEtiapine FUMARATE 100 MG TABLET PO PRN (00:50)
[2018-12-24] MEDS: LORazepam 2 MG TABLET PO PRN ×3 (00:50→15:09)
[2018-12-24] MEDS: LISINOPRIL 10 MG TABLET PO SCH (08:21)
[2018-12-24] MEDS: THIAMINE HCL 100 MG TABLET PO SCH ×2 (08:21→16:17)
[2018-12-24] MEDS: MONTELUKAST SODIUM 10 MG TABLET PO SCH (08:22)
[2018-12-24] MEDS: MULTIVITAMINS WITH MINERALS, THERAPEUTIC TABLET PO SCH (08:22)
[2018-12-24] MEDS: FOLIC ACID 1 MG TABLET PO SCH (08:22)
[2018-12-24] MEDS: ASPIRIN 81 MG CHEWABLE TABLET PO SCH (08:22)
[2018-12-24] MEDS: GABAPENTIN 300 MG CAPSULE PO SCH ×4 (08:22→20:36)
[2018-12-24] MEDS: TAMSULOSIN HCL 0.4 MG CAPSULE PO SCH (08:23)
[2018-12-24] MEDS: DULoxetine HCL 20 MG CAPSULE PO SCH (08:23)
[2018-12-24] MEDS: CARVEDILOL 6.25 MG TABLET PO SCH (08:23)
[2018-12-24] MEDS: SPIRONOLACTONE 25 MG TABLET PO SCH (08:23)
[2018-12-24] MEDS: FUROSEMIDE 40 MG TABLET PO SCH (08:23)
[2018-12-24 08:25] VITALS: BP 120/82
[2018-12-24] MEDS: FERROUS SULFATE 325 MG EC TABLET PO SCH ×2 (08:26→16:15)
[2018-12-24] MEDS: LOPERAMIDE HCL 2 MG CAPSULE PO PRN (09:35)
[2018-12-24 16:53] VITALS: BP 105/69
[2018-12-24] MEDS: ZOLPIDEM TARTRATE 10 MG TABLET PO PRN (20:36)
[2018-12-25] MEDS: LORazepam 2 MG TABLET PO PRN ×3 (02:25→13:32)
[2018-12-25] MEDS: QUEtiapine FUMARATE 100 MG TABLET PO PRN (02:26)
[2018-12-25] MEDS: FERROUS SULFATE 325 MG EC TABLET PO SCH (07:06)
[2018-12-25] MEDS: ASPIRIN 81 MG CHEWABLE TABLET PO SCH (08:05)
[2018-12-25] MEDS: MULTIVITAMINS WITH MINERALS, THERAPEUTIC TABLET PO SCH (08:06)
[2018-12-25] MEDS: TAMSULOSIN HCL 0.4 MG CAPSULE PO SCH (08:06)
[2018-12-25] MEDS: GABAPENTIN 300 MG CAPSULE PO SCH ×2 (08:06→13:03)
[2018-12-25] MEDS: FOLIC ACID 1 MG TABLET PO SCH (08:06)
[2018-12-25] MEDS: DULoxetine HCL 20 MG CAPSULE PO SCH (08:06)
[2018-12-25] MEDS: LISINOPRIL 10 MG TABLET PO SCH (08:06)
[2018-12-25] MEDS: MONTELUKAST SODIUM 10 MG TABLET PO SCH (08:07)
[2018-12-25] MEDS: SPIRONOLACTONE 25 MG TABLET PO SCH (08:07)
[2018-12-25] MEDS: THIAMINE HCL 100 MG TABLET PO SCH (08:07)
[2018-12-25] MEDS: FUROSEMIDE 40 MG TABLET PO SCH (08:07)
[2018-12-25] MEDS: CARVEDILOL 6.25 MG TABLET PO SCH (08:07)
[2018-12-25 08:46] VITALS: BP 124/93
[2018-12-25] MEDS ORDERED: DULO20CA30 PO ×2 (09:18→10:17)
[2018-12-25] MEDS ORDERED: GABA-531 PO ×2 (09:18→10:17)
== END 2018-12-25 15:20 | disposition home or self-care (01) | DRG 750 ==
LOC: EMS 12:22 → 3EC 15:59
PROC: 5A09357 Assistance with Respiratory Ventilation, Less than 24 Consecutive Hours, Continuous Positive Airway Pressure (ICD-10-PCS; principal; 2018-12-17)
PROC: 5A09357 Assistance with Respiratory Ventilation, Less than 24 Consecutive Hours, Continuous Positive Airway Pressure (ICD-10-PCS; 2018-12-18)
PROC: 5A09357 Assistance with Respiratory Ventilation, Less than 24 Consecutive Hours, Continuous Positive Airway Pressure (ICD-10-PCS; 2018-12-20)
DX: F25.0 Schizoaffective disorder, bipolar type (principal); I11.0 Hypertensive heart disease with heart failure; I50.9 Heart failure, unspecified; R45.851 Suicidal ideations; E87.1 Hypo-osmolality and hyponatremia; G47.33 Obstructive sleep apnea (adult) (pediatric); H40.9 Unspecified glaucoma; I48.91 Unspecified atrial fibrillation; J44.9 Chronic obstructive pulmonary disease, unspecified; N40.0 Benign prostatic hyperplasia without lower urinary tract symptoms; F10.10 Alcohol abuse, uncomplicated; D64.9 Anemia, unspecified; F12.90 Cannabis use, unspecified, uncomplicated; F32.9 Major depressive disorder, single episode, unspecified; F41.9 Anxiety disorder, unspecified; G89.29 Other chronic pain; M54.9 Dorsalgia, unspecified; Z88.0 Allergy status to penicillin; Z59.0 Homelessness; Z79.899 Other long term (current) drug therapy; Z88.8 Allergy status to other drugs, medicaments and biological substances
CPT/HCPCS: 83036; 84439; 84443; 94660; G0480; J3535

== ENCOUNTER 2019-02-13 21:25 | Inpatient (IN) | payer MEDICAID, OTHER ==
[~2019-02-13] VITALS: Ht 170.2 cm; Wt 96.2 kg
[~2019-02-13 21:25] MED LIST changes: -ACAM333T7 PO; -PALI117D IM
[2019-02-13] MEDS ORDERED: GABA-533 PO (21:51)
[2019-02-13 22:18] LABS: BASOPHILS % (AUTO) 0.4 % (0.0-2.0); EOSINOPHILS % (AUTO) 7.4 % (1.0-6.0); HEMATOCRIT 38.9 % (41-53); HEMOGLOBIN 12.3 g/dL (13.5-17.5); LYMPHOCYTES # (AUTO) 1.5 K/uL (1.0-4.8); LYMPHOCYTES % (AUTO) 14.2 % (22.0-44.0); MEAN CORPUSCULAR HEMOGLOBIN 27.1 pg (26.0-34.0); MEAN CORPUSCULAR HGB CONC 31.6 G/dL (31.0-37.0); MEAN CORPUSCULAR VOLUME 86 fL (80-100); MONOCYTES # (AUTO) 1.4 K/uL (0.1-1.0); MONOCYTES % (AUTO) 13.9 % (2.0-9.0); NEUTROPHILS # (AUTO) 6.6 K/uL (1.8-7.7); NEUTROPHILS % (AUTO) 64.1 % (40.0-70.0); PLATELET COUNT (AUTO) 349 K/uL (150-450); RED BLOOD CELL COUNT(AUTO) 4.52 MIL/uL (4.50-5.90); RED CELL DISTRIBUTION WIDTH 15.7 % (11.5-14.5)
[2019-02-13 22:39] LABS: ANION GAP 8 mmol/L (8-16); CALCIUM, TOTAL 8.8 mg/dL (8.8-10.5); CARBON DIOXIDE 30 mmol/L (22-29); CHLORIDE 101 mmol/L (98-107); CREATININE 0.82 mg/dL (0.60-1.30); GLOMERULAR FILTR. RATE CALC > 60 mL/min (>60); GLUCOSE,RANDOM 107 mg/dL (70-110); POTASSIUM 3.6 mmol/L (3.5-5.1); SODIUM SERUM 139 mmol/L (136-145); UREA NITROGEN, BLOOD 9 mg/dL (7-18)
[2019-02-13 22:44] LABS: ALANINE AMINOTRANSFERASE 21 U/L (12-78); ALBUMIN 3.1 g/dL (3.4-5.0); ALKALINE PHOSPHATASE 94 U/L (46-116); ASPARTATE AMINOTRANSFERASE 15 U/L (15-37); BILIRUBIN,TOTAL 0.2 mg/dL (0.1-1.0)
[2019-02-14] MEDS ORDERED: ZOLPIDEM TARTRATE 10 MG TABLET PO PRN (00:45)
[2019-02-14 04:28] LABS: APPEARANCE,URINE CLEAR (CLEAR); BILIRUBIN,URINE NEGATIVE (NEGATIVE); GLUCOSE, URINE (UA) NEGATIVE (NEGATIVE); KETONES,URINE NEGATIVE (NEGATIVE); LEUKOCYTE ESTERASE ,URINE NEGATIVE (NEGATIVE); NITRATE,URINE NEGATIVE (NEGATIVE); OCCULT BLOOD,URINE NEGATIVE (NEGATIVE); PH,URINE 6.5 (5.0-8.0); PROTEIN,URINE NEGATIVE (NEGATIVE); UROBILINOGEN,URINE 0.2 mg/dL (<=1.0)
[2019-02-14 04:33] LABS: AMPHET/METH SCREEN,URINE POSITIVE (NEGATIVE); BARBITURATE SCREEN, URINE NEGATIVE (NEGATIVE); BENZODIAZEPINES SCREEN,URINE POSITIVE (NEGATIVE); CANNABINOID SCREEN,URINE POSITIVE (NEGATIVE); COCAINE SCREEN,URINE NEGATIVE (NEGATIVE); METHADONE SCREEN, URINE NEGATIVE (NEGATIVE); OPIATE SCREEN,URINE NEGATIVE (NEGATIVE); PHENCYCLIDINE SCREEN,URINE NEGATIVE (NEGATIVE)
[2019-02-14] MEDS ORDERED: PNEUMOCOCCAL VACCINE POLYVALENT 0.5 ML VIAL [PPSV23] IM ONE (05:30)
[2019-02-14 08:57] VITALS: BP 151/102
[2019-02-14] MEDS: LORazepam 2 MG TABLET PO PRN (11:56)
[2019-02-14] MEDS: QUEtiapine FUMARATE 100 MG TABLET PO PRN (11:56)
[2019-02-14] MEDS ORDERED: SPIR25 PO (13:33)
[2019-02-14] MEDS ORDERED: CloNIDine HCL 0.1 MG TABLET PO PRN (15:00)
[2019-02-14] MEDS: THIAMINE HCL 100 MG TABLET PO SCH (21:43)
[2019-02-14] MEDS: ZIPRASIDONE HCL 40 MG CAPSULE PO SCH (21:43)
[2019-02-15] MEDS: ZIPRASIDONE HCL 40 MG CAPSULE PO SCH ×2 (06:46→17:11)
[2019-02-15] MEDS: FERROUS SULFATE 325 MG EC TABLET PO SCH (06:46)
[2019-02-15] MEDS: SPIRONOLACTONE 25 MG TABLET PO SCH (07:51)
[2019-02-15] MEDS: MONTELUKAST SODIUM 10 MG TABLET PO SCH (07:51)
[2019-02-15] MEDS: FOLIC ACID 1 MG TABLET PO SCH (07:51)
[2019-02-15] MEDS: ASPIRIN 81 MG CHEWABLE TABLET PO SCH (07:51)
[2019-02-15] MEDS: FUROSEMIDE 20 MG TABLET PO SCH (07:51)
[2019-02-15] MEDS: THIAMINE HCL 100 MG TABLET PO SCH ×2 (07:51→16:26)
[2019-02-15] MEDS: TAMSULOSIN HCL 0.4 MG CAPSULE PO SCH (07:51)
[2019-02-15] MEDS: DULoxetine HCL 60 MG CAPSULE PO SCH (07:51)
[2019-02-15] MEDS: MULTIVITAMINS WITH MINERALS, THERAPEUTIC TABLET PO SCH (07:52)
[2019-02-15] MEDS: LISINOPRIL 10 MG TABLET PO SCH (07:53)
[2019-02-15] MEDS: CARVEDILOL 6.25 MG TABLET PO SCH (07:54)
[2019-02-15 09:09] LABS: LITHIUM < 0.20 mmol/L (0.60-1.20)
[2019-02-15 09:11] LABS: CHOL/HDL RATIO 3.3 (4.2-7.3); CHOLESTEROL 127 mg/dL (131-200); HDL CHOLESTEROL 38 mg/dL (40-60); LDL CHOL (CALC.) 84 mg/dL (0-130); TRIGLYCERIDES 25 mg/dL (15-150)
[2019-02-15 09:30] VITALS: BP 128/95
[2019-02-15] MEDS: QUEtiapine FUMARATE 100 MG TABLET PO PRN (16:14)
[2019-02-15] MEDS: LORazepam 2 MG TABLET PO PRN (16:14)
[2019-02-15 16:16] VITALS: BP 145/82
[2019-02-16] MEDS: ZIPRASIDONE HCL 40 MG CAPSULE PO SCH ×2 (06:43→17:30)
[2019-02-16] MEDS: FERROUS SULFATE 325 MG EC TABLET PO SCH (06:44)
[2019-02-16] MEDS: FOLIC ACID 1 MG TABLET PO SCH (08:22)
[2019-02-16] MEDS: CARVEDILOL 6.25 MG TABLET PO SCH (08:22)
[2019-02-16] MEDS: MONTELUKAST SODIUM 10 MG TABLET PO SCH (08:22)
[2019-02-16] MEDS: SPIRONOLACTONE 25 MG TABLET PO SCH (08:22)
[2019-02-16] MEDS: TAMSULOSIN HCL 0.4 MG CAPSULE PO SCH (08:22)
[2019-02-16] MEDS: DULoxetine HCL 60 MG CAPSULE PO SCH (08:22)
[2019-02-16] MEDS: THIAMINE HCL 100 MG TABLET PO SCH ×2 (08:23→17:00)
[2019-02-16] MEDS: ASPIRIN 81 MG CHEWABLE TABLET PO SCH (08:23)
[2019-02-16] MEDS: FUROSEMIDE 20 MG TABLET PO SCH (08:23)
[2019-02-16] MEDS: LISINOPRIL 10 MG TABLET PO SCH (08:23)
[2019-02-16] MEDS: MULTIVITAMINS WITH MINERALS, THERAPEUTIC TABLET PO SCH (08:23)
[2019-02-16] MEDS: LORazepam 2 MG TABLET PO PRN (08:25)
[2019-02-16] MEDS: QUEtiapine FUMARATE 100 MG TABLET PO PRN (08:25)
[2019-02-16 08:33] VITALS: BP 142/91
[2019-02-16] MEDS: MUPIROCIN CALCIUM 2% 22 GM OINTMENT NASAL SCH (17:00)
[2019-02-17] MEDS: ZIPRASIDONE HCL 40 MG CAPSULE PO SCH ×2 (06:50→17:28)
[2019-02-17] MEDS: FERROUS SULFATE 325 MG EC TABLET PO SCH (06:50)
[2019-02-17] MEDS: CARVEDILOL 6.25 MG TABLET PO SCH (07:53)
[2019-02-17] MEDS: MONTELUKAST SODIUM 10 MG TABLET PO SCH (07:54)
[2019-02-17] MEDS: SPIRONOLACTONE 25 MG TABLET PO SCH (07:54)
[2019-02-17] MEDS: LISINOPRIL 10 MG TABLET PO SCH (07:56)
[2019-02-17] MEDS: TAMSULOSIN HCL 0.4 MG CAPSULE PO SCH (07:56)
[2019-02-17] MEDS: MUPIROCIN CALCIUM 2% 22 GM OINTMENT NASAL SCH ×2 (07:57→15:56)
[2019-02-17] MEDS: THIAMINE HCL 100 MG TABLET PO SCH ×2 (07:57→15:57)
[2019-02-17] MEDS: FOLIC ACID 1 MG TABLET PO SCH (07:57)
[2019-02-17] MEDS: DULoxetine HCL 60 MG CAPSULE PO SCH ×2 (07:57→15:56)
[2019-02-17] MEDS: ASPIRIN 81 MG CHEWABLE TABLET PO SCH (07:57)
[2019-02-17] MEDS: MULTIVITAMINS WITH MINERALS, THERAPEUTIC TABLET PO SCH (07:57)
[2019-02-17] MEDS: FUROSEMIDE 20 MG TABLET PO SCH (07:57)
[2019-02-17] MEDS: QUEtiapine FUMARATE 100 MG TABLET PO PRN (07:58)
[2019-02-17 08:11] VITALS: BP 142/84
[2019-02-17 16:13] VITALS: BP 103/69
[2019-02-17] MEDS: LORazepam 2 MG TABLET PO PRN (17:50)
[2019-02-18] MEDS: ZIPRASIDONE HCL 40 MG CAPSULE PO SCH ×2 (06:50→19:25)
[2019-02-18] MEDS: FERROUS SULFATE 325 MG EC TABLET PO SCH (06:50)
[2019-02-18] MEDS: MULTIVITAMINS WITH MINERALS, THERAPEUTIC TABLET PO SCH (08:15)
[2019-02-18] MEDS: LISINOPRIL 10 MG TABLET PO SCH (08:15)
[2019-02-18] MEDS: FUROSEMIDE 20 MG TABLET PO SCH (08:15)
[2019-02-18] MEDS: TAMSULOSIN HCL 0.4 MG CAPSULE PO SCH (08:15)
[2019-02-18] MEDS: SPIRONOLACTONE 25 MG TABLET PO SCH (08:15)
[2019-02-18] MEDS: FOLIC ACID 1 MG TABLET PO SCH (08:15)
[2019-02-18] MEDS: MONTELUKAST SODIUM 10 MG TABLET PO SCH (08:15)
[2019-02-18] MEDS: THIAMINE HCL 100 MG TABLET PO SCH ×2 (08:15→16:18)
[2019-02-18] MEDS: DULoxetine HCL 60 MG CAPSULE PO SCH ×2 (08:15→16:18)
[2019-02-18] MEDS: ASPIRIN 81 MG CHEWABLE TABLET PO SCH (08:16)
[2019-02-18] MEDS: CARVEDILOL 6.25 MG TABLET PO SCH (08:16)
[2019-02-18] MEDS: MUPIROCIN CALCIUM 2% 22 GM OINTMENT NASAL SCH ×2 (08:16→16:18)
[2019-02-18 09:08] VITALS: BP 127/87
[2019-02-18] MEDS: QUEtiapine FUMARATE 100 MG TABLET PO PRN (12:26)
[2019-02-18] MEDS: LORazepam 2 MG TABLET PO PRN (12:26)
[2019-02-18 16:00] VITALS: BP 112/67
[2019-02-19] MEDS: FERROUS SULFATE 325 MG EC TABLET PO SCH (06:46)
[2019-02-19] MEDS: ZIPRASIDONE HCL 40 MG CAPSULE PO SCH ×2 (06:46→17:41)
[2019-02-19 08:00] VITALS: BP 106/67
[2019-02-19] MEDS: THIAMINE HCL 100 MG TABLET PO SCH ×2 (08:22→17:27)
[2019-02-19] MEDS: FOLIC ACID 1 MG TABLET PO SCH (08:22)
[2019-02-19] MEDS: FUROSEMIDE 20 MG TABLET PO SCH (08:22)
[2019-02-19] MEDS: MULTIVITAMINS WITH MINERALS, THERAPEUTIC TABLET PO SCH (08:22)
[2019-02-19] MEDS: SPIRONOLACTONE 25 MG TABLET PO SCH (08:22)
[2019-02-19] MEDS: DULoxetine HCL 60 MG CAPSULE PO SCH ×2 (08:22→17:27)
[2019-02-19] MEDS: ASPIRIN 81 MG CHEWABLE TABLET PO SCH (08:22)
[2019-02-19] MEDS: MONTELUKAST SODIUM 10 MG TABLET PO SCH (08:22)
[2019-02-19] MEDS: LISINOPRIL 10 MG TABLET PO SCH (08:22)
[2019-02-19] MEDS: TAMSULOSIN HCL 0.4 MG CAPSULE PO SCH (08:22)
[2019-02-19] MEDS: CARVEDILOL 6.25 MG TABLET PO SCH (08:22)
[2019-02-19] MEDS: LORazepam 2 MG TABLET PO PRN ×2 (08:23→15:02)
[2019-02-19] MEDS: MUPIROCIN CALCIUM 2% 22 GM OINTMENT NASAL SCH ×2 (08:25→17:35)
[2019-02-19] MEDS: QUEtiapine FUMARATE 100 MG TABLET PO PRN (15:02)
[2019-02-19 16:16] VITALS: BP 114/64
[2019-02-20] MEDS: FERROUS SULFATE 325 MG EC TABLET PO SCH (06:48)
[2019-02-20] MEDS: ZIPRASIDONE HCL 40 MG CAPSULE PO SCH ×2 (06:48→16:26)
[2019-02-20 08:00] VITALS: BP 132/76
[2019-02-20] MEDS: TAMSULOSIN HCL 0.4 MG CAPSULE PO SCH (08:49)
[2019-02-20] MEDS: MULTIVITAMINS WITH MINERALS, THERAPEUTIC TABLET PO SCH (08:49)
[2019-02-20] MEDS: FOLIC ACID 1 MG TABLET PO SCH (08:49)
[2019-02-20] MEDS: SPIRONOLACTONE 25 MG TABLET PO SCH (08:49)
[2019-02-20] MEDS: THIAMINE HCL 100 MG TABLET PO SCH ×2 (08:50→16:26)
[2019-02-20] MEDS: MUPIROCIN CALCIUM 2% 22 GM OINTMENT NASAL SCH ×2 (08:50→16:26)
[2019-02-20] MEDS: ASPIRIN 81 MG CHEWABLE TABLET PO SCH (08:50)
[2019-02-20] MEDS: LISINOPRIL 10 MG TABLET PO SCH (08:50)
[2019-02-20] MEDS: CARVEDILOL 6.25 MG TABLET PO SCH (08:50)
[2019-02-20] MEDS: DULoxetine HCL 60 MG CAPSULE PO SCH ×2 (08:50→16:26)
[2019-02-20] MEDS: MONTELUKAST SODIUM 10 MG TABLET PO SCH (08:50)
[2019-02-20] MEDS: FUROSEMIDE 20 MG TABLET PO SCH (08:50)
[2019-02-20 16:21] VITALS: BP 148/78
[2019-02-21 00:06] VITALS: BP 120/70
[2019-02-21] MEDS: LORazepam 2 MG TABLET PO PRN ×3 (00:08→12:25)
[2019-02-21] MEDS: FERROUS SULFATE 325 MG EC TABLET PO SCH (07:09)
[2019-02-21] MEDS: ZIPRASIDONE HCL 40 MG CAPSULE PO SCH ×2 (07:09→18:15)
[2019-02-21 08:00] VITALS: BP 129/78
[2019-02-21] MEDS: SPIRONOLACTONE 25 MG TABLET PO SCH (08:01)
[2019-02-21] MEDS: MONTELUKAST SODIUM 10 MG TABLET PO SCH (08:01)
[2019-02-21] MEDS: CARVEDILOL 6.25 MG TABLET PO SCH (08:01)
[2019-02-21] MEDS: FUROSEMIDE 20 MG TABLET PO SCH (08:01)
[2019-02-21] MEDS: MULTIVITAMINS WITH MINERALS, THERAPEUTIC TABLET PO SCH (08:01)
[2019-02-21] MEDS: DULoxetine HCL 60 MG CAPSULE PO SCH ×2 (08:01→18:15)
[2019-02-21] MEDS: FOLIC ACID 1 MG TABLET PO SCH (08:01)
[2019-02-21] MEDS: THIAMINE HCL 100 MG TABLET PO SCH ×2 (08:01→18:15)
[2019-02-21] MEDS: LISINOPRIL 10 MG TABLET PO SCH (08:01)
[2019-02-21] MEDS: TAMSULOSIN HCL 0.4 MG CAPSULE PO SCH (08:01)
[2019-02-21] MEDS: ASPIRIN 81 MG CHEWABLE TABLET PO SCH (08:03)
[2019-02-21] MEDS: MUPIROCIN CALCIUM 2% 22 GM OINTMENT NASAL SCH ×2 (08:06→18:15)
[2019-02-21] MEDS: QUEtiapine FUMARATE 100 MG TABLET PO PRN (12:25)
[2019-02-22] MEDS: FERROUS SULFATE 325 MG EC TABLET PO SCH (06:36)
[2019-02-22] MEDS: ZIPRASIDONE HCL 40 MG CAPSULE PO SCH ×2 (06:36→16:35)
[2019-02-22 09:19] VITALS: BP 90/60
[2019-02-22] MEDS: MULTIVITAMINS WITH MINERALS, THERAPEUTIC TABLET PO SCH (10:14)
[2019-02-22] MEDS: FUROSEMIDE 20 MG TABLET PO SCH (10:14)
[2019-02-22] MEDS: MUPIROCIN CALCIUM 2% 22 GM OINTMENT NASAL SCH ×2 (10:14→16:35)
[2019-02-22] MEDS: LISINOPRIL 10 MG TABLET PO SCH (10:14)
[2019-02-22] MEDS: SPIRONOLACTONE 25 MG TABLET PO SCH (10:14)
[2019-02-22] MEDS: TAMSULOSIN HCL 0.4 MG CAPSULE PO SCH (10:14)
[2019-02-22] MEDS: CARVEDILOL 6.25 MG TABLET PO SCH (10:14)
[2019-02-22] MEDS: THIAMINE HCL 100 MG TABLET PO SCH ×2 (10:14→16:35)
[2019-02-22] MEDS: MONTELUKAST SODIUM 10 MG TABLET PO SCH (10:14)
[2019-02-22] MEDS: FOLIC ACID 1 MG TABLET PO SCH (10:14)
[2019-02-22] MEDS: DULoxetine HCL 60 MG CAPSULE PO SCH ×2 (10:14→16:35)
[2019-02-22] MEDS: ASPIRIN 81 MG CHEWABLE TABLET PO SCH (10:15)
[2019-02-22] MEDS: LORazepam 2 MG TABLET PO PRN (14:14)
[2019-02-22] MEDS: QUEtiapine FUMARATE 100 MG TABLET PO PRN (17:46)
[2019-02-22 17:47] VITALS: BP 131/83
[2019-02-23] MEDS: ZIPRASIDONE HCL 40 MG CAPSULE PO SCH ×2 (06:45→18:00)
[2019-02-23] MEDS: FERROUS SULFATE 325 MG EC TABLET PO SCH (06:45)
[2019-02-23] MEDS: DULoxetine HCL 60 MG CAPSULE PO SCH ×2 (08:42→18:00)
[2019-02-23] MEDS: FOLIC ACID 1 MG TABLET PO SCH (08:43)
[2019-02-23] MEDS: ASPIRIN 81 MG CHEWABLE TABLET PO SCH (08:43)
[2019-02-23] MEDS: LISINOPRIL 10 MG TABLET PO SCH (08:43)
[2019-02-23] MEDS: TAMSULOSIN HCL 0.4 MG CAPSULE PO SCH (08:43)
[2019-02-23] MEDS: FUROSEMIDE 20 MG TABLET PO SCH (08:44)
[2019-02-23] MEDS: MULTIVITAMINS WITH MINERALS, THERAPEUTIC TABLET PO SCH (08:44)
[2019-02-23] MEDS: THIAMINE HCL 100 MG TABLET PO SCH ×2 (08:44→18:00)
[2019-02-23] MEDS: MONTELUKAST SODIUM 10 MG TABLET PO SCH (08:44)
[2019-02-23] MEDS: MUPIROCIN CALCIUM 2% 22 GM OINTMENT NASAL SCH (08:45)
[2019-02-23] MEDS: SPIRONOLACTONE 25 MG TABLET PO SCH (08:45)
[2019-02-23] MEDS: CARVEDILOL 6.25 MG TABLET PO SCH (08:45)
[2019-02-23 10:11] VITALS: BP 143/89
[2019-02-23] MEDS: QUEtiapine FUMARATE 100 MG TABLET PO PRN (13:29)
[2019-02-23 16:45] VITALS: BP 139/80
[2019-02-23] MEDS: LORazepam 2 MG TABLET PO PRN (21:01)
[2019-02-24] MEDS: ZIPRASIDONE HCL 40 MG CAPSULE PO SCH ×2 (06:54→17:03)
[2019-02-24] MEDS: FERROUS SULFATE 325 MG EC TABLET PO SCH (06:54)
[2019-02-24 08:00] VITALS: BP 133/89
[2019-02-24] MEDS: THIAMINE HCL 100 MG TABLET PO SCH ×2 (08:04→17:02)
[2019-02-24] MEDS: TAMSULOSIN HCL 0.4 MG CAPSULE PO SCH (08:04)
[2019-02-24] MEDS: DULoxetine HCL 60 MG CAPSULE PO SCH ×2 (08:04→17:02)
[2019-02-24] MEDS: LISINOPRIL 10 MG TABLET PO SCH (08:04)
[2019-02-24] MEDS: LORazepam 2 MG TABLET PO PRN ×2 (08:04→12:28)
[2019-02-24] MEDS: ASPIRIN 81 MG CHEWABLE TABLET PO SCH (08:04)
[2019-02-24] MEDS: SPIRONOLACTONE 25 MG TABLET PO SCH (08:05)
[2019-02-24] MEDS: MULTIVITAMINS WITH MINERALS, THERAPEUTIC TABLET PO SCH (08:05)
[2019-02-24] MEDS: MONTELUKAST SODIUM 10 MG TABLET PO SCH (08:05)
[2019-02-24] MEDS: FOLIC ACID 1 MG TABLET PO SCH (08:05)
[2019-02-24] MEDS: CARVEDILOL 6.25 MG TABLET PO SCH (08:05)
[2019-02-24] MEDS: FUROSEMIDE 20 MG TABLET PO SCH (08:05)
[2019-02-24] MEDS: QUEtiapine FUMARATE 100 MG TABLET PO PRN (12:28)
[2019-02-24 18:27] VITALS: BP 102/68
[2019-02-25 06:14] VITALS: BP 125/86
[2019-02-25] MEDS: FERROUS SULFATE 325 MG EC TABLET PO SCH (06:58)
[2019-02-25] MEDS: ZIPRASIDONE HCL 40 MG CAPSULE PO SCH (06:58)
[2019-02-25] MEDS: MONTELUKAST SODIUM 10 MG TABLET PO SCH (07:58)
[2019-02-25] MEDS: LISINOPRIL 10 MG TABLET PO SCH (07:58)
[2019-02-25] MEDS: FUROSEMIDE 20 MG TABLET PO SCH (07:58)
[2019-02-25] MEDS: MULTIVITAMINS WITH MINERALS, THERAPEUTIC TABLET PO SCH (07:58)
[2019-02-25] MEDS: THIAMINE HCL 100 MG TABLET PO SCH (07:59)
[2019-02-25] MEDS: CARVEDILOL 6.25 MG TABLET PO SCH (07:59)
[2019-02-25] MEDS: ASPIRIN 81 MG CHEWABLE TABLET PO SCH (07:59)
[2019-02-25] MEDS: SPIRONOLACTONE 25 MG TABLET PO SCH (07:59)
[2019-02-25] MEDS: FOLIC ACID 1 MG TABLET PO SCH (07:59)
[2019-02-25] MEDS: TAMSULOSIN HCL 0.4 MG CAPSULE PO SCH (07:59)
[2019-02-25] MEDS: DULoxetine HCL 60 MG CAPSULE PO SCH (07:59)
[2019-02-25 08:37] VITALS: BP 138/84
[2019-02-25] MEDS ORDERED: DULO60CA44 PO (09:26)
[2019-02-25] MEDS ORDERED: ZIPR40CA2 PO (09:26)
[2019-02-25] MEDS ORDERED: FERR-89 PO (09:41)
[2019-02-25] MEDS ORDERED: FURO20 PO (09:42)
== END 2019-02-25 11:10 | disposition home or self-care (01) | DRG 750 ==
LOC: EMS 21:26 → 3EC 02-14 00:59
PROVIDERS: ADMIT Psychiatry & Neurology Psychiatry; ATTEND Psychiatry & Neurology Psychiatry
DX: F25.0 Schizoaffective disorder, bipolar type (principal); I11.0 Hypertensive heart disease with heart failure; R45.851 Suicidal ideations; I50.9 Heart failure, unspecified; Z59.0 Homelessness; Z88.0 Allergy status to penicillin; Z88.8 Allergy status to other drugs, medicaments and biological substances; N40.0 Benign prostatic hyperplasia without lower urinary tract symptoms; J44.9 Chronic obstructive pulmonary disease, unspecified; F19.90 Other psychoactive substance use, unspecified, uncomplicated; F41.9 Anxiety disorder, unspecified; I48.91 Unspecified atrial fibrillation; Z91.14 Patient's other noncompliance with medication regimen; Z91.19 Patient's noncompliance with other medical treatment and regimen; G89.29 Other chronic pain; M54.9 Dorsalgia, unspecified
CPT/HCPCS: 80307; 87081; G0480

== ENCOUNTER 2020-01-08 14:54 | Inpatient (IN) | payer MEDICAID, OTHER ==
[~2020-01-08] VITALS: Ht 170.2 cm; Wt 91.6 kg
[~2020-01-08 14:54] MED LIST changes: +ASPI-728 PO; -ASPI81 PO; +DULO-8 PO; -DULO20CA30 PO; +FOLI-130 PO; -FOLI1 PO; +FURO20 PO; -FURO40 PO; -GABA-531 PO; +SPIR25 PO; -SPIR50 PO; +TAMS-13 PO; -TAMS0.4C32 PO; +ZIPR40CA2 PO
[2020-01-08] MEDS ORDERED: LORA-999 PO (15:06)
[2020-01-08] MEDS ORDERED: QUET25TA PO (15:06)
[2020-01-08 18:11] LABS: AMPHET/METH SCREEN,URINE POSITIVE (NEGATIVE); BARBITURATE SCREEN, URINE NEGATIVE (NEGATIVE); BENZODIAZEPINES SCREEN,URINE NEGATIVE (NEGATIVE); CANNABINOID SCREEN,URINE POSITIVE (NEGATIVE); COCAINE SCREEN,URINE NEGATIVE (NEGATIVE); METHADONE SCREEN, URINE NEGATIVE (NEGATIVE); OPIATE SCREEN,URINE POSITIVE (NEGATIVE)
[2020-01-08 18:12] LABS: PHENCYCLIDINE SCREEN,URINE NEGATIVE (NEGATIVE)
[2020-01-08] MEDS ORDERED: LORazepam 2 MG TABLET PO PRN (18:45)
[2020-01-08] MEDS ORDERED: HALOPERIDOL 5 MG TABLET PO PRN (18:45)
[2020-01-08] MEDS ORDERED: ZOLPIDEM TARTRATE 10 MG TABLET PO PRN (18:45)
[2020-01-08 18:54] LABS: APPEARANCE,URINE CLEAR (CLEAR); BILIRUBIN,URINE NEGATIVE (NEGATIVE); GLUCOSE, URINE (UA) NEGATIVE (NEGATIVE); KETONES,URINE NEGATIVE (NEGATIVE); LEUKOCYTE ESTERASE ,URINE NEGATIVE (NEGATIVE); NITRATE,URINE NEGATIVE (NEGATIVE); OCCULT BLOOD,URINE NEGATIVE (NEGATIVE); PROTEIN,URINE NEGATIVE (NEGATIVE)
[2020-01-09 00:48] VITALS: BP 102/69
[2020-01-09] MEDS ORDERED: PNEUMOCOCCAL VACCINE POLYVALENT 0.5 ML VIAL [PPSV23] IM ONE (01:45)
[2020-01-09] MEDS ORDERED: OMEPRAZOLE 20 MG CAPSULE PO PRN (07:00)
[2020-01-09] MEDS ORDERED: MAGNESIUM HYDROXIDE SUSPENSION 30 ML UDCUP PO PRN (07:00)
[2020-01-09] MEDS ORDERED: MAG HYDROX/AL HYDROX/SIMETH ES 30 ML SUSPENSION UDCUP PO PRN (07:00)
[2020-01-09] MEDS ORDERED: BACITRACIN 28.4 GM OINTMENT TP PRN (07:00)
[2020-01-09] MEDS ORDERED: CloNIDine HCL 0.1 MG TABLET PO PRN (07:00)
[2020-01-09] MEDS ORDERED: PETROLATUM,WHITE 28 GM JELLY TP PRN (07:00)
[2020-01-09] MEDS ORDERED: ALBUTEROL SULFATE HFA 90 MCG/PUFF 8 GM INHALER IH PRN (07:00)
[2020-01-09] MEDS ORDERED: BENZOCAINE/MENTHOL LOZENGE MM PRN (07:00)
[2020-01-09] MEDS ORDERED: ONDANSETRON HCL 4 MG TABLET PO PRN (07:00)
[2020-01-09] MEDS ORDERED: ACETAMINOPHEN 325 MG TABLET PO PRN (07:00)
[2020-01-09] MEDS ORDERED: LOPERAMIDE HCL 2 MG CAPSULE PO PRN (07:00)
[2020-01-09] MEDS ORDERED: DOCUSATE SODIUM 100 MG CAPSULE PO PRN (07:00)
[2020-01-09] MEDS: FERROUS SULFATE 325 MG EC TABLET PO SCH (08:12)
[2020-01-09] MEDS: FUROSEMIDE 20 MG TABLET PO SCH (08:12)
[2020-01-09] MEDS: TAMSULOSIN HCL 0.4 MG CAPSULE PO SCH (08:12)
[2020-01-09] MEDS: LISINOPRIL 10 MG TABLET PO SCH (08:12)
[2020-01-09] MEDS: MULTIVITAMINS WITH MINERALS, THERAPEUTIC TABLET PO SCH (08:12)
[2020-01-09 08:54] VITALS: BP 118/62
[2020-01-09] MEDS: DULoxetine HCL 60 MG CAPSULE PO SCH (16:12)
[2020-01-09] MEDS: CARVEDILOL 6.25 MG TABLET PO SCH (16:12)
[2020-01-09] MEDS: SPIRONOLACTONE 25 MG TABLET PO SCH (16:12)
[2020-01-09] MEDS: ZIPRASIDONE HCL 60 MG CAPSULE PO SCH (16:12)
[2020-01-09 16:48] VITALS: BP 114/68
[2020-01-09] MEDS: QUEtiapine FUMARATE 25 MG TABLET PO SCH (20:22)
[2020-01-10 00:28] VITALS: BP 125/74
[2020-01-10] MEDS: ZIPRASIDONE HCL 60 MG CAPSULE PO SCH ×2 (07:13→17:05)
[2020-01-10] MEDS: FERROUS SULFATE 325 MG EC TABLET PO SCH (07:13)
[2020-01-10 08:30] VITALS: BP 129/70
[2020-01-10] MEDS: SPIRONOLACTONE 25 MG TABLET PO SCH (09:18)
[2020-01-10] MEDS: DULoxetine HCL 60 MG CAPSULE PO SCH ×2 (09:18→17:04)
[2020-01-10] MEDS: CARVEDILOL 6.25 MG TABLET PO SCH (09:18)
[2020-01-10] MEDS: MULTIVITAMINS WITH MINERALS, THERAPEUTIC TABLET PO SCH (09:19)
[2020-01-10] MEDS: TAMSULOSIN HCL 0.4 MG CAPSULE PO SCH (09:19)
[2020-01-10] MEDS: FUROSEMIDE 20 MG TABLET PO SCH (09:19)
[2020-01-10] MEDS: LISINOPRIL 10 MG TABLET PO SCH (09:19)
[2020-01-10 16:15] VITALS: BP 110/63
[2020-01-10] MEDS: QUEtiapine FUMARATE 25 MG TABLET PO SCH (20:15)
[2020-01-11 03:30] VITALS: BP 100/70
[2020-01-11] MEDS: FERROUS SULFATE 325 MG EC TABLET PO SCH (07:12)
[2020-01-11] MEDS: ZIPRASIDONE HCL 60 MG CAPSULE PO SCH ×2 (07:12→16:26)
[2020-01-11 08:26] VITALS: BP 121/71
[2020-01-11] MEDS: MULTIVITAMINS WITH MINERALS, THERAPEUTIC TABLET PO SCH (09:24)
[2020-01-11] MEDS: CARVEDILOL 6.25 MG TABLET PO SCH (09:24)
[2020-01-11] MEDS: FUROSEMIDE 20 MG TABLET PO SCH (09:24)
[2020-01-11] MEDS: TAMSULOSIN HCL 0.4 MG CAPSULE PO SCH (09:24)
[2020-01-11] MEDS: LISINOPRIL 10 MG TABLET PO SCH (09:24)
[2020-01-11] MEDS: SPIRONOLACTONE 25 MG TABLET PO SCH (09:24)
[2020-01-11] MEDS: DULoxetine HCL 60 MG CAPSULE PO SCH ×2 (09:24→16:26)
[2020-01-11 16:12] VITALS: BP 108/81
[2020-01-11] MEDS: QUEtiapine FUMARATE 25 MG TABLET PO SCH (20:27)
[2020-01-12 04:37] VITALS: BP 125/80
[2020-01-12] MEDS: FERROUS SULFATE 325 MG EC TABLET PO SCH (06:55)
[2020-01-12] MEDS: ZIPRASIDONE HCL 60 MG CAPSULE PO SCH ×2 (06:55→16:41)
[2020-01-12 08:56] VITALS: BP 113/60
[2020-01-12] MEDS: LISINOPRIL 10 MG TABLET PO SCH (09:19)
[2020-01-12] MEDS: TAMSULOSIN HCL 0.4 MG CAPSULE PO SCH (09:19)
[2020-01-12] MEDS: DULoxetine HCL 60 MG CAPSULE PO SCH ×2 (09:19→16:41)
[2020-01-12] MEDS: FUROSEMIDE 20 MG TABLET PO SCH (09:19)
[2020-01-12] MEDS: CARVEDILOL 6.25 MG TABLET PO SCH (09:19)
[2020-01-12] MEDS: MULTIVITAMINS WITH MINERALS, THERAPEUTIC TABLET PO SCH (09:19)
[2020-01-12] MEDS: SPIRONOLACTONE 25 MG TABLET PO SCH (09:19)
[2020-01-12 17:08] VITALS: BP 100/68
[2020-01-12] MEDS: QUEtiapine FUMARATE 25 MG TABLET PO SCH ×2 (20:21→21:00)
[2020-01-13 06:13] VITALS: BP 110/68
[2020-01-13] MEDS: FERROUS SULFATE 325 MG EC TABLET PO SCH (06:46)
[2020-01-13] MEDS: ZIPRASIDONE HCL 60 MG CAPSULE PO SCH ×2 (06:46→16:10)
[2020-01-13] MEDS: FUROSEMIDE 20 MG TABLET PO SCH (08:28)
[2020-01-13] MEDS: DULoxetine HCL 60 MG CAPSULE PO SCH ×2 (08:28→16:10)
[2020-01-13] MEDS: MULTIVITAMINS WITH MINERALS, THERAPEUTIC TABLET PO SCH (08:28)
[2020-01-13] MEDS: LISINOPRIL 10 MG TABLET PO SCH (08:28)
[2020-01-13] MEDS: CARVEDILOL 6.25 MG TABLET PO SCH (08:28)
[2020-01-13] MEDS: SPIRONOLACTONE 25 MG TABLET PO SCH (08:28)
[2020-01-13] MEDS: TAMSULOSIN HCL 0.4 MG CAPSULE PO SCH (08:28)
[2020-01-13 08:46] VITALS: BP 130/80
[2020-01-13 16:15] VITALS: BP 100/70
[2020-01-13] MEDS: BACITRACIN 28.4 GM OINTMENT TP SCH (20:37)
[2020-01-14 05:50] VITALS: BP 105/80
[2020-01-14] MEDS: ZIPRASIDONE HCL 60 MG CAPSULE PO SCH ×2 (06:51→16:49)
[2020-01-14] MEDS: FERROUS SULFATE 325 MG EC TABLET PO SCH (06:51)
[2020-01-14 09:00] VITALS: BP 112/60
[2020-01-14] MEDS: SPIRONOLACTONE 25 MG TABLET PO SCH (09:01)
[2020-01-14] MEDS: FUROSEMIDE 20 MG TABLET PO SCH (09:01)
[2020-01-14] MEDS: LISINOPRIL 10 MG TABLET PO SCH (09:01)
[2020-01-14] MEDS: TAMSULOSIN HCL 0.4 MG CAPSULE PO SCH (09:02)
[2020-01-14] MEDS: DULoxetine HCL 60 MG CAPSULE PO SCH ×2 (09:02→16:49)
[2020-01-14] MEDS: MULTIVITAMINS WITH MINERALS, THERAPEUTIC TABLET PO SCH (09:02)
[2020-01-14] MEDS: CARVEDILOL 6.25 MG TABLET PO SCH (09:02)
[2020-01-14 16:28] VITALS: BP 100/60
[2020-01-14] MEDS: BACITRACIN 28.4 GM OINTMENT TP SCH (17:07)
[2020-01-15 00:36] VITALS: BP 105/53
[2020-01-15] MEDS: ZIPRASIDONE HCL 60 MG CAPSULE PO SCH ×2 (06:21→16:08)
[2020-01-15] MEDS: FERROUS SULFATE 325 MG EC TABLET PO SCH (06:21)
[2020-01-15] MEDS: MULTIVITAMINS WITH MINERALS, THERAPEUTIC TABLET PO SCH (08:43)
[2020-01-15] MEDS: SPIRONOLACTONE 25 MG TABLET PO SCH (08:43)
[2020-01-15] MEDS: LISINOPRIL 10 MG TABLET PO SCH (08:43)
[2020-01-15] MEDS: FUROSEMIDE 20 MG TABLET PO SCH (08:43)
[2020-01-15] MEDS: TAMSULOSIN HCL 0.4 MG CAPSULE PO SCH (08:43)
[2020-01-15] MEDS: CARVEDILOL 6.25 MG TABLET PO SCH (08:43)
[2020-01-15] MEDS: DULoxetine HCL 60 MG CAPSULE PO SCH ×2 (08:43→16:08)
[2020-01-15] MEDS: BACITRACIN 28.4 GM OINTMENT TP SCH ×2 (08:46→16:08)
[2020-01-15 09:47] VITALS: BP 125/77
[2020-01-15] MEDS: BuPROPion HCL XL 150 MG ER TABLET PO SCH (12:44)
[2020-01-15 16:28] VITALS: BP 104/45
[2020-01-16 05:01] VITALS: BP 110/55
[2020-01-16] MEDS: ZIPRASIDONE HCL 60 MG CAPSULE PO SCH ×2 (06:52→16:54)
[2020-01-16] MEDS: FERROUS SULFATE 325 MG EC TABLET PO SCH (06:52)
[2020-01-16 08:50] VITALS: BP 135/99
[2020-01-16] MEDS: FUROSEMIDE 20 MG TABLET PO SCH (08:56)
[2020-01-16] MEDS: SPIRONOLACTONE 25 MG TABLET PO SCH (08:56)
[2020-01-16] MEDS: TAMSULOSIN HCL 0.4 MG CAPSULE PO SCH (08:56)
[2020-01-16] MEDS: CARVEDILOL 6.25 MG TABLET PO SCH (08:56)
[2020-01-16] MEDS: DULoxetine HCL 60 MG CAPSULE PO SCH ×2 (08:56→16:54)
[2020-01-16] MEDS: LISINOPRIL 10 MG TABLET PO SCH (08:56)
[2020-01-16] MEDS: BuPROPion HCL XL 150 MG ER TABLET PO SCH (08:56)
[2020-01-16] MEDS: BACITRACIN 28.4 GM OINTMENT TP SCH ×2 (08:56→16:54)
[2020-01-16] MEDS: MULTIVITAMINS WITH MINERALS, THERAPEUTIC TABLET PO SCH (08:56)
[2020-01-16 17:30] VITALS: BP 105/78
[2020-01-17 06:00] VITALS: BP 104/70
[2020-01-17] MEDS: FERROUS SULFATE 325 MG EC TABLET PO SCH (06:56)
[2020-01-17] MEDS: ZIPRASIDONE HCL 60 MG CAPSULE PO SCH ×2 (06:56→16:20)
[2020-01-17] MEDS: SPIRONOLACTONE 25 MG TABLET PO SCH (08:56)
[2020-01-17] MEDS: DULoxetine HCL 60 MG CAPSULE PO SCH ×2 (08:57→16:20)
[2020-01-17] MEDS: FUROSEMIDE 20 MG TABLET PO SCH (08:57)
[2020-01-17] MEDS: TAMSULOSIN HCL 0.4 MG CAPSULE PO SCH (08:57)
[2020-01-17] MEDS: CARVEDILOL 6.25 MG TABLET PO SCH (08:57)
[2020-01-17] MEDS: LISINOPRIL 10 MG TABLET PO SCH (08:57)
[2020-01-17] MEDS: MULTIVITAMINS WITH MINERALS, THERAPEUTIC TABLET PO SCH (08:57)
[2020-01-17] MEDS: BuPROPion HCL XL 150 MG ER TABLET PO SCH (08:59)
[2020-01-17] MEDS: BACITRACIN 28.4 GM OINTMENT TP SCH ×2 (09:07→16:21)
[2020-01-17 09:58] VITALS: BP 126/62
[2020-01-17 17:00] VITALS: BP 98/58
[2020-01-18 00:09] VITALS: BP 100/63
[2020-01-18] MEDS: ZIPRASIDONE HCL 60 MG CAPSULE PO SCH ×2 (06:50→16:18)
[2020-01-18] MEDS: FERROUS SULFATE 325 MG EC TABLET PO SCH (06:50)
[2020-01-18 08:13] VITALS: BP 133/61
[2020-01-18] MEDS: FUROSEMIDE 20 MG TABLET PO SCH (08:39)
[2020-01-18] MEDS: TAMSULOSIN HCL 0.4 MG CAPSULE PO SCH (08:39)
[2020-01-18] MEDS: MULTIVITAMINS WITH MINERALS, THERAPEUTIC TABLET PO SCH (08:39)
[2020-01-18] MEDS: SPIRONOLACTONE 25 MG TABLET PO SCH (08:39)
[2020-01-18] MEDS: DULoxetine HCL 60 MG CAPSULE PO SCH ×2 (08:39→16:18)
[2020-01-18] MEDS: LISINOPRIL 10 MG TABLET PO SCH (08:39)
[2020-01-18] MEDS: BuPROPion HCL XL 150 MG ER TABLET PO SCH (08:40)
[2020-01-18] MEDS: BACITRACIN 28.4 GM OINTMENT TP SCH ×2 (08:40→16:19)
[2020-01-18] MEDS: CARVEDILOL 6.25 MG TABLET PO SCH (08:40)
[2020-01-18 16:39] VITALS: BP 128/71
[2020-01-19 03:46] VITALS: BP 124/75
[2020-01-19] MEDS: FERROUS SULFATE 325 MG EC TABLET PO SCH (06:50)
[2020-01-19] MEDS: ZIPRASIDONE HCL 60 MG CAPSULE PO SCH (06:50)
[2020-01-19] MEDS: SPIRONOLACTONE 25 MG TABLET PO SCH (08:26)
[2020-01-19] MEDS: MULTIVITAMINS WITH MINERALS, THERAPEUTIC TABLET PO SCH (08:26)
[2020-01-19] MEDS: LISINOPRIL 10 MG TABLET PO SCH (08:26)
[2020-01-19] MEDS: DULoxetine HCL 60 MG CAPSULE PO SCH (08:27)
[2020-01-19] MEDS: CARVEDILOL 6.25 MG TABLET PO SCH (08:27)
[2020-01-19] MEDS: BuPROPion HCL XL 150 MG ER TABLET PO SCH (08:27)
[2020-01-19] MEDS: FUROSEMIDE 20 MG TABLET PO SCH (08:27)
[2020-01-19] MEDS: TAMSULOSIN HCL 0.4 MG CAPSULE PO SCH (08:27)
[2020-01-19] MEDS: BACITRACIN 28.4 GM OINTMENT TP SCH (08:30)
[2020-01-19 08:40] VITALS: BP 113/77
[2020-01-19] MEDS ORDERED: ZIPR60CA2 PO (09:24)
[2020-01-19] MEDS ORDERED: MULT-1239 PO (09:24)
[2020-01-19] MEDS ORDERED: ALBU8HFA IH (09:24)
[2020-01-19] MEDS ORDERED: BUPR-93 PO (09:24)
[2020-01-19] MEDS ORDERED: QUET25TA PO (09:24)
== END 2020-01-19 11:49 | disposition home or self-care (01) | DRG 885 ==
LOC: EMS 14:57 → B2S 18:38 → UNDOADMIN 21:00 → B2S 21:00
PROVIDERS: ADMIT Psychiatry & Neurology Psychiatry; ATTEND Psychiatry & Neurology Psychiatry
DX: F25.1 Schizoaffective disorder, depressive type (principal); I11.0 Hypertensive heart disease with heart failure; B19.20 Unspecified viral hepatitis C without hepatic coma; R45.851 Suicidal ideations; Z87.891 Personal history of nicotine dependence; N40.0 Benign prostatic hyperplasia without lower urinary tract symptoms; J44.9 Chronic obstructive pulmonary disease, unspecified; I50.9 Heart failure, unspecified; I48.91 Unspecified atrial fibrillation; G89.29 Other chronic pain; Z59.0 Homelessness; Z91.14 Patient's other noncompliance with medication regimen; F41.9 Anxiety disorder, unspecified; M54.9 Dorsalgia, unspecified; Z28.21 Immunization not carried out because of patient refusal; Z03.818 Encounter for observation for suspected exposure to other biological agents ruled out; F15.10 Other stimulant abuse, uncomplicated; F12.10 Cannabis abuse, uncomplicated
CPT/HCPCS: J3535